=== PATIENT | male | born 1965 | race Caucasian/White ===

== ENCOUNTER 2022-01-13 17:08 | Outpatient (REF) | payer OTHER, SELFPAY ==
[2022-01-13 21:27] LABS: Microalb ug/mg Crea 52.4 ug/mg Cr
[2022-01-13 21:40] LABS: ALT 20 U/L (16-63); AST 14 U/L (15-37); Albumin 4.1 g/dL (3.4-5.0); Alkaline Phosphatase 68 U/L (46-116); Anion Gap 10.7 mmol/L (3-11); BUN 17 mg/dL (7-18); Bilirubin, Total 0.5 mg/dL (0.2-1.0); CO2 25.3 mmol/L (21.0-32.0); CREATININE 0.9 mg/dL (0.70-1.30); Calcium 9.1 mg/dL (8.5-10.1); Calculated LDL 73 mg/dL (<100); Chloride 104 mmol/L (98-107); Cholesterol 136 mg/dL (<200); Glucose 115 mg/dL (74-106); HDL Cholesterol 34 mg/dL (40-60); Potassium 3.9 mmol/L (3.5-5.1); Sodium 140 mmol/L (136-145); Total Protein 7.4 g/dL (6.4-8.2); Triglyceride 148 mg/dL (<150)
[2022-01-14 17:47] LABS: PSA, Screening 0.8 ng/mL (0.0-3.5)
[2022-01-15 10:01] LABS: HIV-1/2 Ag & Ab Screen Negative (Negative)
[2022-01-15 10:43] LABS: Hepatitis C Ab w Rflx HCV PCR Negative (Negative)
== END 2022-01-13 17:09 | disposition home or self-care (01) ==
LOC: LBN 17:08
PROVIDERS: PCP Family Medicine; Visit Provider Family Medicine
DX: I10 Essential (primary) hypertension (principal); E78.5 Hyperlipidemia, unspecified; E11.9 Type 2 diabetes mellitus without complications; E66.9 Obesity, unspecified; Z11.4 Encounter for screening for human immunodeficiency virus [HIV]; Z11.59 Encounter for screening for other viral diseases; Z12.5 Encounter for screening for malignant neoplasm of prostate
CPT/HCPCS: 80053; 80061; 84153; 86803; 87389; 82043; 82570; 83036

== ENCOUNTER 2022-01-19 11:19 | Outpatient (CLI) | payer OTHER, SELFPAY ==
--- NOTE | 2022-01-19 11:00 | DI.RAD_ITS ---
Exam(s) XR SHOULDER RT COMPLETE 2+V EXAM: XR SHOULDER RT COMPLETE 2+V CLINICAL HISTORY: eval R shoulder pain and weakness. TECHNIQUE: 2D digital imaging was performed. COMPARISON: No exams were available for comparison FINDINGS: BONES: No acute fracture is present. No bony destructive lesion is seen. JOINTS: No dislocation present. No significant AC joint degenerative changes. Glenoid is not well p rofiled but shows spurring. The glenohumeral joint spaces well maintained. SOFT TISSUE: Normal. IMPRESSION: Mild degenerative changes of the glenohumeral joint. DATA REPOSITORY: RADIATION DOSE DELIVERED:
--- NOTE | 2022-01-19 11:00 | DI.RAD_ITS ---
Exam(s) XR KNEE LT 3V AP,LAT,NABIL XR STANDING ALIGNMENT EXAM: XR STANDING ALIGNMENT CLINICAL HISTORY: eval alignment for TKA planning. TECHNIQUE: 2D digital imaging was performed. Standing AP views were performed from the pelvis throu gh the ankles. COMPARISON: CR XR KNEE LT 3V AP,LAT,NABIL from 01/19/2022 FINDINGS: BONES: No acute fracture is present. No bony destructive lesion is seen. Enthesophytes iliac wings. There is no significant overall leg length discrepancy at the level of the femoral heads. JOINTS: Knees: Right: Joint spaces are well maintained. Left: Severe narrowing of the medial femoral tibial joint space, periarticular spurring and sclerosis. Varus angulation. Spurring at the patell ofemoral joint and lateral femoral tibial joint as well as tibial spines and femoral intercondylar no tch. Hips: The hip joints are well maintained. There is bilateral acetabular spurring.. Ankles: Tibiotalar joints are well maintained. Bony densities are seen beneath the malleoli. There is spurring from the malleoli bilaterally. Calcification is seen near the interosseous membrane on t he right. SOFT TISSUE: Normal. No left knee joint effusion is seen IMPRESSION: Severe degenerative changes of the medial femoral tibial joint space of left knee. No significant le g length discrepancy. DATA REPOSITORY: RADIATION DOSE DELIVERED:
== END 2022-01-19 11:20 | disposition home or self-care (01) ==
LOC: DIORS 11:20
PROVIDERS: PCP Family Medicine; Referring Provider Family Medicine; Visit Provider Student in an Organized Health Care Education/Training Program
DX: M25.511 Pain in right shoulder (principal); M17.12 Unilateral primary osteoarthritis, left knee; M19.011 Primary osteoarthritis, right shoulder
CPT/HCPCS: 73562; 99203; 73030; 77073

== ENCOUNTER → 2022-01-27 13:41 | Outpatient (BNVA) | payer OTHER, SELFPAY | PROVIDERS: PCP Family Medicine; Referring Provider Family Medicine | DX: Z01.818 Encounter for other preprocedural examination (principal); M17.12 Unilateral primary osteoarthritis, left knee; R01.1 Cardiac murmur, unspecified ==

== ENCOUNTER → 2022-02-04 01:45 | Outpatient (CLI) | payer OTHER, SELFPAY | PROVIDERS: PCP Family Medicine; Visit Provider Physician Assistant | DX: R01.1 Cardiac murmur, unspecified (principal) | CPT/HCPCS: 93306 ==

== ENCOUNTER 2022-02-16 02:14 | Outpatient (CLI) | payer OTHER, SELFPAY | END 2022-02-16 02:15 | disposition home or self-care (01) | LOC: LBO 02:14 | PROVIDERS: PCP Family Medicine; Visit Provider Student in an Organized Health Care Education/Training Program ==

== ENCOUNTER 2022-02-16 02:46 | Outpatient (CLI) | payer OTHER, SELFPAY ==
[2022-02-16 10:18] LABS: HCT 41.9 % (40.0-50.0); HGB 13.8 g/dL (13.5-17.5); MCH 26.4 pg (27.0-33.0); MCHC 32.9 % (32.0-36.0); MCV 80.3 fL (80-95); MPV 8.6 fL (8.0-11.0); Platelet Count 297 10^3/uL (130-400); RBC 5.22 10^6/uL (4.36-5.78); RDW 14.6 % (11.8-14.1); RDW-SD 41.8 fL; WBC 7.71 10^3/uL (4.4-10.8)
[2022-02-16 10:47] LABS: Anion Gap 11.4 mmol/L (3-11); BUN 15 mg/dL (7-18); CO2 25.6 mmol/L (21.0-32.0); CREATININE 0.9 mg/dL (0.70-1.30); Calcium 9.1 mg/dL (8.5-10.1); Chloride 102 mmol/L (98-107); Glucose 200 mg/dL (74-106); Potassium 3.9 mmol/L (3.5-5.1); Sodium 139 mmol/L (136-145)
[2022-02-16 12:13] LABS: Source Nasal/Nares
[2022-02-16 16:39] LABS: COVID-19 PCR Negative (Negative)
== END 2022-02-16 02:47 | disposition home or self-care (01) ==
LOC: LBO 02:47
PROVIDERS: PCP Family Medicine; Visit Provider Student in an Organized Health Care Education/Training Program
DX: M25.562 Pain in left knee (principal); M17.12 Unilateral primary osteoarthritis, left knee; Z20.822 Contact with and (suspected) exposure to COVID-19; Z01.818 Encounter for other preprocedural examination; Z01.812 Encounter for preprocedural laboratory examination
CPT/HCPCS: 36415; 80048; 85027; 87635; U0005

== ENCOUNTER 2022-02-18 07:20 | Day surgery (SDC) | payer OTHER, SELFPAY ==
[2022-02-18] VITALS (9 sets, daily range): BP systolic 141–175; BP diastolic 66–94; PULSE 67–75; RESP 11–20; TEMP 36.2–36.7; O2SAT 92–99; BMI 39.7
[2022-02-18] MEDS: Acetaminophen 500 MG TAB 1000 MG PO (07:51)
[2022-02-18] MEDS: Celecoxib 200 MG CAP 400 MG PO (07:51)
[2022-02-18] MEDS: Gabapentin 300 MG CAP PO (07:52)
--- NOTE | 2022-02-18 08:19 | W.ANESPRE ---
General Info Date of Service Date Performed: 02/18/22 Height: 5 ft 10 in Weight: 125.6 kg Body Mass Index (BMI): 39.7 Surgical Procedure: Operation Date: 02/18/22 09:55 Proposed Procedure Side Surgeon p Knee Total Arthroplasty, Cementless CR Left George Sampson MD Meds Allergies and Home Medications Allergies Allergy/AdvReac Type Severity Reaction Status Date / Time No Known Allergies Allergy Verified 02/18/22 07:37 Home Medication Medication Instructions Recorded fluticasone propionate 50 2 spray INTRANASAL DAILY 12/31/21 mcg/actuation nasal spray,suspension (Flonase Allergy Relief) lisinopril 40 mg tablet 40 mg PO HS 02/17/22 metformin 1,000 mg tablet,extended 1,000 mg PO HS 02/17/22 release 24hr metformin 500 mg tablet,extended 2,500 mg PO QAM 02/17/22 release 24 hr nifedipine 60 mg tablet,extended 60 mg PO HS 02/17/22 release sertraline 100 mg tablet 100 mg PO HS 02/17/22 simvastatin 40 mg tablet 40 mg PO HS 02/17/22 Current Visit Medications: Current Medications Generic Name Dose Route Start Last Admin Trade Name Freq PRN Reason Stop Dose Admin Acetaminophen 1,000 mg 02/18/22 06:00 02/18/22 07:51 Acetaminophen 500 Mg Tab PO 02/18/22 16:00 1,000 mg PREOP GENE Administration Celecoxib 400 mg 02/18/22 06:00 02/18/22 07:51 Celecoxib 200 Mg Cap PO 02/18/22 16:00 400 mg PREOP GENE Administration Gabapentin 300 mg 02/18/22 06:00 02/18/22 07:52 Gabapentin 300 Mg Cap PO 02/18/22 16:00 300 mg PREOP GENE Administration Tranexamic Acid 1,000 mg/ 60 mls @ 360 mls/hr 02/18/22 06:00 Sodium Chloride IVPB 02/18/22 16:00 PREOP GENE Tranexamic Acid 1,000 mg/ 60 mls @ 360 mls/hr 02/18/22 06:00 Sodium Chloride IVPB 02/18/22 16:00 DIRECTED GENE Ringer's Solution 1,000 mls @ 80 mls/hr 02/18/22 06:00 IV 03/07/22 23:59 INFUSION GENE Cefazolin Sodium 3,000 mg/ 100 mls @ 200 mls/hr 02/18/22 06:00 Sodium Chloride IVPB 02/18/22 16:00 PREOP GENE IV Miscellaneous Supplies 1 each 02/18/22 06:00 Iv Access IV 03/07/22 23:59 DIRECTED GENE Sodium Chloride 0 ml 02/18/22 06:00 Normal Saline Flush 10 Ml Syr IV 03/07/22 23:59 PRN PRN Sodium Chloride 0 ml 02/18/22 06:00 Normal Saline 10 Ml Vial IJ 03/07/22 23:59 DIRECTED PRN Sterile Water 0 ml 02/18/22 06:00 Water,Injection,Sterile 10 Ml Vial IJ 03/07/22 23:59 DIRECTED PRN PFSH Active Problems Active Problems: Problem Status Onset Code Dysfunction of right rotator cuff M67.911 Right shoulder pain M25.511 Type 2 diabetes mellitus with diabetic nephropathy E11.21 Colon polyp K63.5 Depression F32.A Hypokalemia E87.6 Obesity E66.9 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 Hyperlipemia E78.5 Type II diabetes mellitus E11.9 Arthritis of knee, left M17.12 Essential hypertension I10 Sleep apnea G47.30 Medical History Medical History History of colon polyps Medical History Comments:: - 4 pins in neck c4-c6 - front tooth missing Surgical History Surgical History H/O discectomy (~02/08/18) c5-6 History of colonoscopy History of open reduction and internal fixation (ORIF) procedure (~11/08/84) r ankle fx History of orthopedic surgery (~1989) right ankle Tobacco Smoking/Tobacco Use Status: Former Tobacco Use Passive smoking exposure: Yes Second hand exposure: Yes Alcohol Alcohol Intake: current Alcohol intake frequency: holidays/special occasions only Alcohol type: beer Substance Use Substance use: Never Substance use type: marijuana Vital Signs and Lab Results Vital Signs Most Recent Vital Signs in EMR: Most Recent Vital Signs Temp Pulse Resp BP Pulse Ox 36.6 C 75 18 175/94 H 97 02/18/22 07:54 02/18/22 07:54 02/18/22 07:54 02/18/22 07:54 02/18/22 07:54 Point of Care Results Point of Care Results: Finger Stick Blood Glucose 127 02/18/22 07:34 Lab Results Blood Type / Crossmatch: No Data to Display Complete Blood Count: White Blood Count 7.71 10^3/uL (4.4-10.8) 02/16/22 10:00 02/16/22 Red Blood Count 5.22 10^6/uL (4.36-5.78) 02/16/22 10:00 02/16/22 Hemoglobin 13.8 g/dL (13.5-17.5) 02/16/22 10:00 02/16/22 Hematocrit 41.9 % (40.0-50.0) 02/16/22 10:00 02/16/22 Platelet Count 297 10^3/uL (130-400) 02/16/22 10:00 02/16/22 Complete Metabolic Panel: Sodium Level 139 mmol/L (136-145) 02/16/22 10:00 02/16/22 Potassium Level 3.9 mmol/L (3.5-5.1) 02/16/22 10:00 02/16/22 Chloride Level 102 mmol/L (98-107) 02/16/22 10:00 02/16/22 Carbon Dioxide Level 25.6 mmol/L (21.0-32.0) 02/16/22 10:00 02/16/22 Blood Urea Nitrogen 15 mg/dL (7-18) 02/16/22 10:00 02/16/22 Creatinine 0.9 mg/dL (0.70-1.30) 02/16/22 10:00 02/16/22 Estimated GFR/1.73 m2 >= 60.00 (mL/min/1.73m2) 02/16/22 10:00 02/16/22 Calcium Level 9.1 mg/dL (8.5-10.1) 02/16/22 10:00 02/16/22 Glucose Level 200 mg/dL (74-106) H 02/16/22 10:00 02/16/22 Liver Function Panel: No Data to Display Coagulation Panel: No Data to Display Cardiac Panel: No Data to Display Arterial Blood Gas: No Data to Display Venous Blood Gas: No Data to Display Pancreas Panel: No Data to Display Thyroid Panel: No Data to Display Infectious Disease: Coronavirus (COVID-19)(PCR) Negative (Negative) 02/16/22 10:13 02/16/22 Coronavirus 2019 Source Nasal/Nares 02/16/22 10:13 02/16/22 Blood Cultures: No Data to Display Toxicology Panel: No Data to Display Anesthesia Assessment and Plan Anesthesia History Personal History: No History of Anesthesia Complications Family History: No Family History of Anesthesia Complications Exercise Tolerance Exercise Tolerance: Metabolic Equivalents>4 Pertinent Negatives Pertinent Negatives: No Symptoms of GERD, No Major Cardiovascular Symptoms or Complaints, No Major Pulmonary Symptoms or Complaints (CPAP compliant at night and with naps) and No History of CVA/TIA Cardiac & Pulmonary Exam Cardiac Exam: Normal S1/S2 Heart Sounds and Other (Possible mitral valve systolic murmur) Pulmonary Exam: Clear Bilateral Breath Sounds Implantable Cardiac Device Does patient have a Pacemaker or an ICD?: No Airway Exam Known Difficult Airway: No Mallampati Class: 2 Mouth Opening: Normal (> 3cm) Thyromental Distance: Greater than 3 cm Neck Range of Motion: Limited ROM and History of Cervical Fusion Neck Circumference: Thick Teeth Condition: Loose or Chipped ASA Classification ASA Score: ASA 3 Emergency Case?: No NPO Status NPO Status: NPO Clears >2 hours, Solids >8 hours Anesthesia Plan Resuscitation Status: Full Code Anesthesia Technique: Spinal Anesthesia Airway Planned: Natural Airway Pain Management: Surgeon and patient request nerve block Monitors Used: Standard Monitors
[2022-02-18] MEDS: Lactated Ringers 1,000 ML 80 ML IV (08:32)
[2022-02-18] MEDS: ceFAZolin 3,000 MG in Normal Saline 100 ML 200 MG IVPB (09:40)
--- NOTE | 2022-02-18 09:55 | W.ANESNERVE ---
Nerve Block Single Injection Procedure Date and Time Date Performed: 02/18/22 Procedure Start: : Location Where Procedure Performed Procedure Location: Day Surgery Unit Reason Performed: Postoperative Analgesia Requesting Provider: George Sampson Timeout Performed Timeout Performed: Yes Monitoring Used ECG, Blood Pressure, SpO2 and See EMR for corresponding vital signs Sterility Sterility: Hand Hygiene, Surgical Cap, Surgical Mask, Sterile Gloves, Eye Protection and Chlorhexidine Sedation Given During Procedure Sedation Given (Indicate Dose Given): No Sedation given Patient Mental Status Patient Mental Status: Awake Nerve Block 1st Nerve Block: Laterality: Left Block Type: Adductor Canal Needle / Catheter Used: 100mm SonoPlex II Local Anesthetic Bolus (Indicate Dose Given): Lidocaine used for local infiltration of skin and Bupivacaine 0.25% Dose:: 20cc Additives (Indicate Dose Given): None Ultrasound: Sterile probe cover and gel used Ultrasound Image Saved?: Yes Nerve Stimulator: Not Used Paresthesia: None Procedure Tolerated: Patient tolerated well Procedure Outcome: Successful Performed By: Harmony Stevens Supervised By: Diego Ruth
[2022-02-18] MEDS: Bupivacaine 0.25% Pres-Free 30 ML VIAL (09:59)
[2022-02-18] MEDS: Ketorolac 30 MG/ML VIAL (10:00)
[2022-02-18] MEDS: Normal Saline 20 ML VIAL (10:00)
--- NOTE | 2022-02-18 12:01 | PDOC.DSDIS_ITS ---
Discharge Plan Disposition Patient Disposition: HOME Condition: Good Discharge Details Reason For Visit: L TKR Attending Provider: George Sampson Primary Care Provider: Meet Alcantara Home Meds and New Rx's Prescriptions: New celecoxib 200 mg capsule 200 mg PO BID Qty: 60 3RF aspirin 81 mg tablet,delayed release (DR/EC) 81 mg PO BID Qty: 60 0RF acetaminophen 500 mg tablet 1,000 mg PO TID Qty: 90 3RF gabapentin 300 mg capsule 300 mg PO QHS Qty: 14 0RF oxycodone 5 mg tablet 5 mg PO Q4H MDD 6 tabs PRN (Reason: pain) Qty: 20 0RF pantoprazole 40 mg tablet,delayed release (DR/EC) 40 mg PO DAILY Qty: 30 0RF Continued fluticasone propionate [Flonase Allergy Relief] 50 mcg/actuation spray,suspension 2 spray intranasal DAILY 0RF Rx Instructions: administer into each nostril sertraline 100 mg tablet 100 mg PO HS 0RF simvastatin 40 mg tablet 40 mg PO HS 0RF nifedipine 60 mg tablet extended release 60 mg PO HS 0RF lisinopril 40 mg tablet 40 mg PO HS 0RF metformin 500 mg tablet extended release 24 hr 2,500 mg PO QAM 0RF Label Comments: pt reports he took 3x 500mg tablets 02/17/22 metformin 1,000 mg tablet extended release 24hr 1,000 mg PO HS 0RF Label Comments: pt reports he doesnt take the 1000mg tablet Discharge Instructions Additional Instructions: Total Knee Discharge Instructions Activity: The most important activity is to walk. You should try to take short walks a few times a day. It is important that when resting you work on keeping the knee straight. Avoid putting a pillow behind the knee as this will encourage flexion. Work on range of motion exercises as provided by Physical Therapy. - Start outpatient physical therapy within 2 weeks. - You should wear the REYNA hose on both legs for 2 weeks. You may remove these at night. You may also use any compression sock in place of the REYNA hose. - Utilize [employer] to review exercises, see videos on exercises and obtain basic information pertaining to your surgery and your recovery. Dressing: Remove the Jarad wrap by 2 days after your surgery and put on the REYNA stocking given to you from the hospital. Keep the surgical dressing (underneath the JARAD wrap) in place for at least one week. After the first week it may be removed and replaced with light gauze and tape or nothing. The wound and dressing may get wet after 3 days but avoid soaking the dressing or otherwise it will need to be changed. Many people prefer covering the dressing with cling wrap (saran wrap) to minimize it from getting soaked. If it gets wet, just pat dry. If it starts to peel off then it will need to be changed. Medications: - You should take Tylenol and anti-inflammatory Celebrex as your primary pain control medications. If the Celebrex is too expensive or not covered, please call the office for another alternative (Advil/Ibuprofen or Naproxen/Aleve) - You have been prescribed a stronger pain medication Oxycodone for breakthrough pain, take as needed as prescribed. - You have also been prescribed a stomach acid reduction agent Pantoprozole to help reduce stomach acid and reflux. - You have been prescribed Gabapentin to take at night for restlessness and nerve pain. - You will be taking Aspirin 81mg twice a day for DVT prevention unless instructed otherwise. - If you have constipation you should take Colace or Miralax (both o [id number]). It takes most people 3-4 days to have a bowel movement. Follow-up: 2 weeks If you have any acute concerns or questions, please do not hesitate to contact the office at [phone]. You may contact Dr. Sampson with any questions after hours through the hospital at [phone] or on his cell phone at [phone]. Stand Alone Forms: Anesthesia Discharge Inst., Elyssa Warner ([facility]) Referrals: George Sampson MD [ [facility] STAFF PHYSICIAN] - Equipment/Supplies: Walker Activity:: Activity as Tolerated Remove Dressings/Wound Care:: Do Not Remove Shower/Bathe:: 72 hours Diet:: As Tolerated Discharge Orders Discharge Orders: Discharge Order (Routine); Ordered 02/18/22 Ordered By: George Sampson DS: Diagnosis Discharge Diagnosis (1) Arthritis of knee, left: Status: Acute
[2022-02-18] MEDS: HYDROmorphone 2 MG/ML VIAL IVP ×3 (12:05→12:25)
--- NOTE | 2022-02-18 12:54 | W.ANESPOSTOP ---
Postoperative Evaluation Date, Time and Location Date Performed: 02/18/22 Time Performed: 12:54 Patient Location: Day Surgery Unit Vital Signs Most Recent Imported Vital Signs: Most Recent Vital Signs Temp Pulse Resp BP Pulse Ox 36.5 C 68 12 153/70 H 99 02/18/22 12:25 02/18/22 12:25 02/18/22 12:25 02/18/22 12:25 02/18/22 12:25 Pain Score Most Recent Pain Score: Most Recent Pain Score Pain Level 6 02/18/22 12:25 Assessment Mental Status: Awake (Alert & Oriented to Patient Baseline) Airway and Respiratory Function: Patent airway with normal (patient baseline) respiratory exam Cardiovascular Function: Hemodynamically Stable Hydration Status: Adequately Hydrated Nausea & Vomiting: No Nausea or Vomiting Pain: Pain is tolerable per patient Peripheral Nerve Block: Regional nerve block not resolved at time of post operative discharge
[2022-02-18] MEDS: Insulin Aspart 100 UNITS/ML UNIT SC (13:12)
--- NOTE | 2022-02-18 14:45 | IN_ITS ---
Date of service: 02/18/22 Time of Service: 14:45 PT Notes Visit Reasons: L TKR Physical Therapy Day Surgery Initial Evaluation Date: 02/18/2022 Referring Doctor: DAVID Choudhury PT Orders: PT CONSULT: Eval/treat Precautions: WBAT on left LE with AD. Patient Profile/Admitting Diagnosis: Diego is a 56-year-old male with arthritis of the left knee and is status post left total knee arthroplasty on postoperative day 0. PMHX: Medical History?(Updated 01/19/22 @ 12:25 by George Sampson MD) History of colon polyps Surgical History?(Updated 01/27/22 @ 14:10 by Mela Epperson) H/O discectomy (~02/08/18) c5-6History of colonoscopy History of open reduction and internal fixation (ORIF) procedure (~11/08/84) r ankle fxHistory of orthopedic surgery (~1989) right ankle Social History/Home Situation: Lives with in a private home with 17 steps to enter with a rail on the left side going up in a wall that he can hold onto on the right side. Independent with all aspects of ADLs prior to surgery. Equipment Owned/DME: None Subjective: Agreeable to PT consult. Reported very little pain in the left knee with weight bearing Denies headache, chest pain, and dizziness throughout session. Objective: General Observation: Supine in bed. TARUN wraps to L LE. Cryocuff to left knee. Mental Status: Alert and oriented x4 Pain: 1/10 in the left knee. ROM: Right Lower Extremity: Hip flexion WFL. Hip abduction WFL. Knee flexion WFL. Ankle dorsiflexion WFL. Ankle plantarflexion WFL. Left Lower Extremity: Hip flexion WFL. Hip abduction WFL. Knee flexion 10 degrees to 90 degrees. Knee extension -10 degrees. Ankle dorsiflexion WFL. Ankle plantarflexion WFL. Strength: Right Lower Extremity: Hip flexors 5/5. Hip abductors 5/5. Knee flexors 5/5. Knee extensors 5/5. Ankle dorsiflexors 5/5. Ankle plantarflexors 5/5. Left Lower Extremity:Hip flexors 5/5. Hip abductors 5/5. Knee flexors 3-/5. Knee extensors 3-/5. Ankle dorsiflexors 5/5. Ankle plantarflexors 5/5. Sensation: Intact as to pain and light pressure in bilateral lower extremities Bed Mobility/Transfers: Supine to sit standby assist Sit to stand contact-guard assist Stand to sit standby assist Bed to chair standby assist Gait: 150 feet on level surface ambulation using front-wheeled walker with step through gait pattern. Good left quadriceps activation. Loss of balance. No shortness of breath. Balance: Static Sitting: Normal Dynamic Sitting: Normal Static Standing: Fair Dynamic Standing: Fair Special Tests: Mobility Limitations Standardized Measure [facility] 6 clicks Basic Mobility Inpatient Short Form: Raw Score: 24 CMS Score: 0% deficit Informed Consent/Education: Patient instructed in purpose of PT consult. Reviewed postoperative TKA exercises using [employer] at on his cell phone during the session. Education and training on initial set of exercises that can be done at home have been completed with patient. Assessment: Diego requires the use of a front wheeled walker for mobility ADL performance to reduce fall risk and maximize independence. Patient presents with clinical signs and symptoms consistent with current/admitting diagnoses that have resulted to mobility limitations, gait instability, generalized weakness, and impairment of motor control as demonstrated by the following impairment level findings: 1. Decreased strength to left knee major muscle groups 2. Impaired standing balance 3. Limitation of joint range of motion in left knee Impairments are contributing to the following functional limitations: 1. Inability to safely ambulate without assistive device 2. Increase completion time for mobility ADL performance 3. Increased fall risk Patient is assessed as a 72691 moderatecomplexity based on the following: History: 56-year-old male with impairment level findings, functional limitations, and past medical history as indicated above Examination: Demonstrable impairment in strength, balance, and mobility level with underlying impairments and functional limitations as documented above Presentation: Evolving Decision Makin moderate complexity Goals: N/A. PT evaluation and 1-2 treatment sessions only for functional mobility training using recommended AD and for HEP instruction. Plan of Care/Treatment Plan: N/A. PT evaluation and 1-2 treatment session only for functional mobility training using recommended AD and for HEP instruction. DISCHARGE RECOMMENDATIONS: [] Home with no services [] [] Home with services [specify] [X] Home with outpatient PT. Home when medically cleared by orthopedic surgeon. Will benefit from outpatient PT services to be ambulation and to ADL performance without an assistive ambulatory/adaptive device. [] SNF for continued rehabilitation [] [] Senior Living Care [] [] SNF versus LTC based on ability to participate and progress [] TREATMENT CODE/TIME: 9716 2 x 20 minutes, 9753 0 x 16 minutes beginning at 14:45 PM. Thank you for the opportunity to participate in the care of this patient. Sheba Noe PT, DPT, CLT [facility] [place], [place]
--- NOTE | 2022-02-18 22:37 | ROE_ITS ---
Date of service: 02/18/22 Time of Service: 11:00 Operative Note Operative Note DATE OF PROCEDURE: 02/18/22 PRE-OP DIAGNOSIS: Left Knee Osteoarthritis POST-OP DIAGNOSIS: same PROCEDURE: Left Total Knee Replacement SURGEON: George Sampson PRINCIPAL ADMINISTRATIVE CLERK: Sarai Starks Refer to Anesthesia Record ESTIMATED BLOOD LOSS: 100 PATHOLOGY: none sent TOURNIQUET TIME: 0 COMPLICATIONS: None Patient was transported to: PACU Patient's condition: stable Implants: 1. Depuy Attune Cementless Cruciate Retaining Femoral Component, Size 8 2. Depuy Attune Cementless Rotating Platform Tibial Component, Size 7 3. Depuy Attune 8x5 CR/RP Poly 4. Depuy Attune Patellar Component, Size 38 Indications: I have seen Diego in clinic for symptoms of knee arthritis, confirmed with radiographic findings. He has exhausted nonoperative methods and was having significant limitations in daily function and desired better function and less pain. I discussed the technical details of a knee replacement. I explained the risks of the procedure to include, but not limited to, bleeding, infection, pain, stiffness, fracture, damage to nerves and vessels, damage to muscles and tendons, loosening, need for repeat procedure, blood clot and cardiopulmonary demise. Despite these risks, Diego elected to proceed. Findings: There was significant signs of arthritis throughout the knee. His preoperative stiffness was really limited 15-95. Procedure Description: Diego was greeted in the preoperative holding area where the correct side was identified and marked. The consent was reviewed with the patient and signed. The history and physical was updated. All questions were answered. Preoperative medications were administered: Acetaminophen 1000mg, Celebrex 400mg, and Gabapentin 300mg. An adductor canal block was then administered by the anesthesia team in the PACU. Diego was taken back to the operating room. A spinal anesthestic was then administered. The patient was placed into the supine position on the operating room table. A nonsterile tourniquet was placed high onto the leg but only used for cementing. Posts were placed for positioning during the procedure. All bony prominences were well padded. Prophylactic antibiotics in the form of Cefazolin were administered. 1g of Tranxemic Acid was given intravenously within 30 minutes of incision. The left leg was then prepped with Chloraprep and draped in a standard fashion with impervious stockinette. A second prep with Chloraprep was performed prior to application of Iodine impregnated skin protection. A timeout to confirm correct identity, side and site, procedure, allergies, anesthesia, and medical concerns was performed. With the knee in some flexion, a midline incision was made overlying the knee. Full thickness skin flaps were raised once the extensor mechanism was encountered. These were raised medially and laterally. Any bleeding was controlled with electrocautery. Once the extensor mechanism was fully exposed, a medial parapatellar arthrotomy was performed in a flexed position. All bleeding from the arthrotomy and the geniculate arteries was coagulated. A medial subperiosteal peel was performed with electrocautery to the midcoronal plane. Due to the significant varus deformity the entire medial tibial plateau was exposed. The fat pad was removed while keeping the patellar tendon protected. The anterior distal femur synovium was removed for later visualization. The ACL and PCL were resected and the anterior horn of the lateral meniscus was transected. The knee was then flexed with the patella everted. Large osteophytes from the tibia were removed. Large osteophytes from the femur were removed. Using a step drill, and based on preoperative templating, the femoral canal was entered. This was done with a step drill without any difficulty. The intramedullary distal femoral cut guide was inserted, set to a 5 degree valgus cut and 9mm cut thickness. The distal femoral cut guide was then held in position and pinned. With the soft tissues protected, the distal cut was performed. This was passed over a few times to ensure a planar cut. I then turned attention to the tibia. The extramedullary guide was placed onto the leg. The distal aspect was slid medial to adjust for position of center of ankle and stay in line with shaft of the tibia. Approximately 3-5 degrees of posterior slope was kept in the proximal cutting guide. The center of the guide was aligned with the PCL. The stylus was used to assess cut thickness. The medial side, most involved side, was set for a 4mm cut. This was then held in position and pinned into place with 2 additional pins and a cross pin for stability. The medial and lateral collateral ligaments were protected and the cut was performed. With this completed, it was assessed and noted to be of appropriate dimensions. The guide was removed. A spacer block was inserted and the knee was brought into extension. The 5mm spacer block provided full extension, without hyperextension and with stability of both the medial and lateral collateral ligaments was assessed. The pins from the femur and the tibia were then removed. The distal femur was then sized. The anterior stylus was placed onto the lateral ridge of the anterior femur. This indicated a size 8 femur. The external rotation of the guide was adjusted to 3 degrees to match the epicondylar axis, perpendicular to Anderson?s line. The 4-in-1 cutting guide was the placed. The posterior medial femur cut was evaluated and appeared of good thickness. The spacer block was inserted underneath the cutting guide and stability was confirmed in 90 degrees of flexion. An mikala wing was used to confirm appropriate position of the anterior cut to avoid notching. This cutting guide was ensured to be flush on the cut surface and then pinned into place with headed pins. While protecting the soft tissues, quad tendon, and collateral ligaments, the anterior and posterior cuts were performed with a saw. The central two pins were removed and the posterior and anterior chamfers were cut next. The notch-cutting guide was placed. This was pinned to lateralize the femoral component as much as possible while keeping it flush on the cut surface. This was then pinned into position. A reciprocating saw was used to make the notch cut. A rasp smoothed the cut surfaces. The medial and lateral menisci were removed. A trial femoral component was then inserted, impacted down to the cut surfaces, and the lug holes were drilled. A provisional trial tibial component was placed and the knee was brought through range of motion. There was noted to be excellent extension and flexion. There was no significant instability. The patella was tracking without thumbs. A size 5mm polyethylene component provided the best range of motion and stability with less than 2mm gapping with medial and lateral stress and full extension without significant hyperextension. The tibial cut surface was fully exposed. The tibia was then sized as a 7. The tibia had been previously marked during trialing to correspond to the center of the tibial component to help with rotation. The trial was aligned to this sarai, approximately rotated to the medial 1/3rd of the tibial tubercle. The trial was pinned into place. The tibia was prepared with a reamer and a keel punch and lug holes. The knee was then brought into extension and the patella was measured as 28mm. Using the patellar clamp and cut guide, this was resected to a flat surface with at least 13mm of thickness remaining. The size 38 patella fit the best. This was oriented and then clamped into position. The lugs were drilled. The trial components were removed. The final components were opened on the back table. The periosteal and capsular tissues, especially posteriorly, around the knee were then systematically injected with a periarticular cocktail consisting of 50cc 0.25% Marcaine, 30mg Ketorolac, 20cc of Exparal and 50cc of injectable saline. The knee was thoroughly irrigated with a pulse lavage and dried. Irrisept was also used to irrigate the tissues. On the back table, with the implants opened, the cement was mixed. One batch of high viscosity cement was prepared with vacuum assistance. After the cement was ready a small amount was placed on the cut surface of the patella and the patellar button was clamped into position and held. While the cement was hardening, the cementless knee components were placed. Starting with the tibial component, the tibia was subluxed anteriorly and the lug holes of the component were lined up. The tibia was then impacted with an impactor and mallet until the tibial component was in contact with the tibia. The final polyethylene com ponent was inserted. Then, the femoral component was inserted. The lug holes were aligned and the component was impacted into position. The knee was irrigated with Surgiphor, Betadine solution. This was allowed to sit in the knee for 3 minutes and then it was thoroughly irrigated out with saline. After the cement had finally cured, approximately 15min, the clamp was removed from the patella and the knee was taken through range of motion. The patella was tracking with a no-thumbs technique. The capsule was then reapproximated with a No. 1 Vicryl at multiple locations. The capsule was finally closed with a No. 2 Stratafix, barbed suture. The second dosing of 1g TXA was started. Deep tissues were then reapproximated with 0 Vicryl and 2-0 Vicryl. The skin was closed with a running 3-0 Monocryl in a subcuticular fashion. This was reinforced with skin glue. A Mepilex silver dressing was applied along with a [id number]-bgyqt TARUN wrap. A CryoCuff was applied. Diego was transferred to the hospital bed without difficulty an suffering no apparent complication. Diego has a good prognosis. Physical therapy will start today and without restrictions, weight-bearing as tolerated. Aspirin 81mg BID will be used for DVT prophylaxis.
== END 2022-02-18 15:45 | disposition home or self-care (01) ==
PROVIDERS: PCP Family Medicine; Visit Provider Student in an Organized Health Care Education/Training Program
PROC: (CPT 27447; principal; 2022-02-18 09:45)
DX: M17.12 Unilateral primary osteoarthritis, left knee (principal); E11.21 Type 2 diabetes mellitus with diabetic nephropathy; I10 Essential (primary) hypertension; E78.5 Hyperlipidemia, unspecified
CPT/HCPCS: 27447; 76942; 97162; 97530; J0131; J0690; J1100; J1885; J2001; J2250; J2405; J2704; J3010

== ENCOUNTER 2022-03-05 11:00 | Outpatient (CLI) | payer OTHER, SELFPAY ==
--- NOTE | 2022-03-05 09:15 | DI.RAD_ITS ---
Exam(s) XR KNEE LT 1V XR STANDING ALIGNMENT EXAM: XR STANDING ALIGNMENT CLINICAL HISTORY: 1ST POST OP L TKA TECHNIQUE: COMPARISON: CR XR STANDING ALIGNMENT from 01/19/2022 CR XR KNEE LT 1V from 03/05/2022 FINDINGS: AP standing alignment views were obtained for leg length determination along with a lateral view of t he left knee. There is a total knee joint replacement position on the left. Components appear well seated. There are slight degenerative changes of the hips, and right knee. Moderate degenerative ch anges of the joints of the ankle also noted. IMPRESSION: RADIATION DOSE DELIVERED: Total DLP
== END 2022-03-05 11:01 | disposition home or self-care (01) ==
LOC: DIORS 11:00
PROVIDERS: PCP Family Medicine; Referring Provider Family Medicine; Visit Provider Physician Assistant
DX: Z96.652 Presence of left artificial knee joint (principal)
CPT/HCPCS: 73560; 77073

== ENCOUNTER → 2022-04-03 10:43 | Outpatient (BNVA) | payer OTHER, SELFPAY | PROVIDERS: PCP Family Medicine; Referring Provider Family Medicine; Visit Provider Student in an Organized Health Care Education/Training Program | DX: Z47.1 Aftercare following joint replacement surgery (principal); Z96.652 Presence of left artificial knee joint ==

== ENCOUNTER → 2022-04-27 10:26 | Outpatient (BNVA) | payer OTHER, SELFPAY | PROVIDERS: PCP Nurse Practitioner Family; Referring Provider Nurse Practitioner Family; Visit Provider Student in an Organized Health Care Education/Training Program | DX: Z47.1 Aftercare following joint replacement surgery (principal); Z96.652 Presence of left artificial knee joint ==

== ENCOUNTER → 2022-04-28 00:11 | Outpatient (CLI) | payer OTHER, SELFPAY ==
--- NOTE | 2022-04-28 07:15 | DI.US_ITS ---
Exam(s) US LOWER EXTREMITY VENOUS LT EXAM: US LOWER EXTREMITY VENOUS LT CLINICAL HISTORY: PAIN, SWELLING, ?DVT L LOWER EXTREMITY, hx total knee replacement, Z96.652. TECHNIQUE: Lower extremity venous ultrasound performed using grayscale, color-flow, and spectral Do ppler analysis. COMPARISON: No exams were available for comparison FINDINGS: The common femoral, femoral and popliteal veins demonstrate normal compressibility, augmentation, and color Doppler. The posterior tibial veins are patent. No saphenous vein thrombosis or other superfi cial venous thrombosis is seen. No hematoma or Sanchez's cyst is seen. IMPRESSION: Negative lower extremity ultrasound. No evidence of DVT. DATA REPOSITORY:
== END ==
PROVIDERS: PCP Nurse Practitioner Family; Visit Provider Student in an Organized Health Care Education/Training Program
DX: M79.662 Pain in left lower leg (principal); M79.89 Other specified soft tissue disorders; Z96.652 Presence of left artificial knee joint
CPT/HCPCS: 93971

== ENCOUNTER 2022-04-29 02:13 | Outpatient (CLI) | payer OTHER, SELFPAY ==
[2022-04-29 13:25] LABS: Anion Gap 9.8 mmol/L (3-11); BUN 14 mg/dL (7-18); CO2 25.2 mmol/L (21.0-32.0); CREATININE 0.9 mg/dL (0.70-1.30); Calcium 8.7 mg/dL (8.5-10.1); Chloride 101 mmol/L (98-107); Glucose 161 mg/dL (74-106); Potassium 3.6 mmol/L (3.5-5.1); Sodium 136 mmol/L (136-145)
== END 2022-04-29 02:14 | disposition home or self-care (01) ==
LOC: LBO 02:13
PROVIDERS: PCP Nurse Practitioner Family; Visit Provider Student in an Organized Health Care Education/Training Program
DX: R22.42 Localized swelling, mass and lump, left lower limb; Z96.652 Presence of left artificial knee joint
CPT/HCPCS: 36415; 80048

== ENCOUNTER → 2022-06-08 10:34 | Outpatient (BNVA) | payer OTHER, SELFPAY | PROVIDERS: PCP Nurse Practitioner Family; Referring Provider Nurse Practitioner Family; Visit Provider Student in an Organized Health Care Education/Training Program | DX: R60.0 Localized edema (principal); L55.0 Sunburn of first degree; Z96.652 Presence of left artificial knee joint | CPT/HCPCS: 99213 ==

== ENCOUNTER → 2022-07-08 01:47 | Outpatient (CLI) | payer OTHER, SELFPAY ==
--- NOTE | 2022-07-08 10:34 | DI.US_ITS ---
APPROVED REPORT EXAM: Comprehensive 2D, Doppler, and color-flow Echocardiogram Patient Location: Out-Patient Guest Service Host: Sonia Hadley RDCS (AE) Indications: Pericardial effusion, sleep apnea, murmur Other Information Study Quality: Adequate Conclusion Normal left ventricular wall thickness and chamber size. Estimated ejection fraction is 60%. Wall m otion is normal Normal right ventricular size and systolic function Both atria are normal in size There is no structural or hemodynamically significant valvular disease Estimated right ventricular systolic pressure is 43 mmHg Moderate circumferential pericardial effusion, no evidence of tamponade Wall motion Left Ventricle The left ventricle is normal size. The left ventricular systolic function is normal. The left ventric ular ejection fraction is within the normal range. There is normal left ventricular wall thickness. T here is normal LV segmental wall motion. There is no ventricular septal defect visualized. LVEF is 60 %. Right Ventricle The right ventricle is normal size. The right ventricular systolic function is normal. The RVSP is 43 .4 mmHg. Atria The left atrium size is normal. The right atrium size is normal. The interatrial septum is intact wit h no evidence for an atrial septal defect. Aortic Valve The aortic valve is normal in structure. Aortic valve is trileaflet. There is no aortic valvular sten osis. No aortic regurgitation is present. Mitral Valve The mitral valve is normal in structure. No evidence of mitral valve stenosis. Trace mitral regurgita tion. Tricuspid Valve The tricuspid valve is normal in structure. There is no tricuspid valve stenosis. Trace tricuspid reg urgitation. Pulmonic Valve The pulmonary valve is normal in structure. There is no pulmonic valvular stenosis. Trace pulmonic re gurgitation. Great Vessels The aortic root is normal in size. The ascending aorta is normal in size. Aortic arch is not well vis ualized. IVC is normal in size and collapses >50% with inspiration. Pericardium Moderate circumferential pericardial effusion. 2D Dimensions IVSD d PLAX 1.06 cm M: 0.6-1.2 LV Vol A2C d MOD 115.7 mL LVPW d PLAX 1.07 cm M: 0.6 - 1.2 LV Vol A4C d MOD 117.0 mL LVID d PLAX 5.55 cm M: 4.2 - 5.8 LA vol/ BSA A2C s A-L 30.2 mL/m2 LVDs 3.45 cm M: 2.5 - 4.0 LA vol/ BSA A4C s A-L 32.1 mL/m2 Ao Root d 3.07 cm M: 3.1 - 3.7 LA Vol/ BSA Biplane s A-L 31.7 mL/m2 RA Area A4C 14.17 cm2 LA Area A4C s MOD 25.42 cm2 RA Vol/ BSA A4C s A-L 12.8 mL/m2 LA Area A2C s MOD 24.26 cm2 Ao Asc Diam d 3.45 cm M: 2.6 - 3.4 LV EF A4C MOD 60.1 % LV EF Teichholz 66.6 % LV EF A2C MOD 60.9 % LVEF (Campos's) 61.60 % M: 52 - 72 LV EF Biplane MOD 61.6 % LV Volume 84.60 mL M: 62 - 150 SV 73.70 mL LV Volume Index 35.10 mL/m2 M: 34 - 74 SV Index 30.53 mL/m2 LV Vol Biplane MOD 119.7 mL FS 37.20 % M-Mode TAPSE 2.88 cm (M/F) >1.7 LV Diastology MV E' medial 0.112 (>0.07 m/s) E/A Ratio 1.4 LV E/e MED 10.55 (<14) MV E Vmax 1.19 (0.4-1.3 m/s) MV E' lateral 0.104 (>0.1 m/s) MV A Vmax 0.85 (0.4-1.3 m/s) LV E/e LAT 11.40 (<14) MV E/A Ratio 1.36 MV E/E' medial 10.57 MV E/E' lateral 11.44 Aortic Valve LVOT Area 3.33 cm2 AoV Area Vmax 2.84 cm2 LVOT Vmax 1.47 m/s AoV Area/ BSA (Vmax) 1.18 cm2/m2 LVOT Mean Nhan. 0.98 m/s MARIAM Mean Nhan. 2.63 cm2 LVOT Peak Grad 8.7 mmHg MARIAM Mean Nhan. Index 1.09 cm2/m2 LVOT Mean Grad 4.5 mmHg LVOT VTI 0.299 m LVOT Diam s 2.05 cm AoV Vmax 1.73 m/s Velocity Ratio 0.84 AoV Mean Nhan. 1.25 m/s AoV Peak Grad 12.0 mmHg LVOT SV 99.72 mL AoV Mean Grad 6.8 mmHg AoV VTI 0.334 m AoV Area VTI 2.98 cm2 AoV Area/ BSA (VTI) 1.23 cm/m2 Mitral Valve MV DT 220 (160-240 msec) MV PHT 64 msec MV Area PHT 3.45 cm2 MV VTI 0.377 m MV Area VTI 2.64 (4.0-6.0 cm2) Pulmonary Valve PV Vmax 1.16 (0.5-1.5 m/s) RVOT Peak Gr. 3.54 mmHg PV Peak Grad 5.4 mmHg RVOT Mean Gr. 2.00 mmHg PV Mean Grad 3.3 mmHg RVOT VTI 0.220 m PV VTI 0.233 m RVOT Vmax 0.94 m/s Tricuspid Valve TR Peak Grad 40.3 mmHg TR Vmax 3.18 m/s RA Pressure 3.00 mmHg RVSP (TR) 43.4 mmHg
== END ==
PROVIDERS: PCP Nurse Practitioner Family; Visit Provider Family Medicine
DX: G47.30 Sleep apnea, unspecified (principal); I31.3 Pericardial effusion (noninflammatory); R01.1 Cardiac murmur, unspecified
CPT/HCPCS: 93306

== ENCOUNTER 2022-08-03 09:46 | Outpatient (CLI) | payer OTHER, SELFPAY ==
--- NOTE | 2022-08-03 09:44 | DI.RAD_ITS ---
Exam(s) XR KNEE LT 3V AP,LAT,NABIL EXAM: XR KNEE LT 3V AP,LAT,NABIL CLINICAL HISTORY: pain, swelling in L tka. TECHNIQUE: 2D digital imaging was performed. Three views. COMPARISON: CR XR KNEE LT 1V from 03/05/2022 FINDINGS: BONES: There has been no change in the total knee prosthesis or appearance of the surrounding bone. No acute fracture is present. No bony destructive lesion is seen. JOINTS: The knee is normally aligned. No joint effusion is seen. SOFT TISSUE: Mild anterior soft tissue swelling. IMPRESSION: Stable appearance of knee prosthesis. DATA REPOSITORY: RADIATION DOSE DELIVERED:
[2022-08-03 12:15] LABS: Clarity Clear
[2022-08-03 12:16] LABS: Nucleated Cells 410 uL (0)
[2022-08-03 12:33] LABS: Mononuclear Cells 94 %; Polynuclear Cells 6 %
== END 2022-08-03 09:47 | disposition home or self-care (01) ==
LOC: DIORS 09:47
PROVIDERS: PCP Nurse Practitioner Family; Referring Provider Nurse Practitioner Family; Visit Provider Student in an Organized Health Care Education/Training Program
DX: T84.84XA Pain due to internal orthopedic prosthetic devices, implants and grafts, initial encounter (principal); Z96.652 Presence of left artificial knee joint
CPT/HCPCS: 20610; 73562; 99213; 87070; 87205; 89051

== ENCOUNTER 2022-08-25 11:03 | Day surgery (SDC) | payer OTHER, SELFPAY ==
[2022-08-25] VITALS (8 sets, daily range): BP systolic 106–154; BP diastolic 46–80; PULSE 65–72; RESP 12–18; TEMP 36.1–36.7; O2SAT 95–97; BMI 39.7
[2022-08-25] MEDS: Lactated Ringers 1,000 ML 80 ML IV (11:45)
[2022-08-25] MEDS: Celecoxib 200 MG CAP 400 MG PO (11:46)
[2022-08-25] MEDS: Gabapentin 300 MG CAP PO (11:46)
[2022-08-25] MEDS: Acetaminophen 500 MG TAB 1000 MG PO (11:46)
--- NOTE | 2022-08-25 11:46 | W.ANESPRE ---
General Info Date of Service Date Performed: 08/25/22 Height: 5 ft 10 in Weight: 125.645 kg Body Mass Index (BMI): 39.7 Surgical Procedure: Operation Date: 08/25/22 13:55 Proposed Procedure Side Surgeon p Knee Arthroscopy Synovectomy w/Manipulation Left George Sampson MD Meds Allergies and Home Medications Allergies Allergy/AdvReac Type Severity Reaction Status Date / Time No Known Allergies Allergy Verified 08/24/22 11:52 Home Medication Medication Instructions Recorded fluticasone propionate 50 2 spray intranasal DAILY 12/31/21 mcg/actuation nasal spray,suspension (Flonase Allergy Relief) sertraline 100 mg tablet 100 mg PO HS 02/17/22 simvastatin 40 mg tablet 40 mg PO HS 02/17/22 metformin 1,000 mg tablet 1,000 mg PO BID #180 tabs 03/02/22 lisinopril 40 mg tablet See Rx Instructions .Route 03/13/22 .COMPLEX #90 tabs acetaminophen 500 mg tablet 1,000 mg PO Q8H PRN pain #90 tabs 08/25/22 hydrochlorothiazide 25 mg tablet 50 mg PO DAILY 08/25/22 ibuprofen 600 mg tablet 600 mg PO TID PRN pain #60 tabs 08/25/22 Current Visit Medications: Current Medications Generic Name Dose Route Start Last Admin Trade Name Freq PRN Reason Stop Dose Admin Acetaminophen 1,000 mg 08/25/22 06:00 Acetaminophen 500 Mg Tab PO 08/25/22 18:00 PREOP GENE Celecoxib 400 mg 08/25/22 06:00 Celecoxib 200 Mg Cap PO 08/25/22 18:00 PREOP GENE Gabapentin 300 mg 08/25/22 06:00 Gabapentin 300 Mg Cap PO 08/25/22 18:00 PREOP [facility] Ringer's Solution 1,000 mls @ 80 mls/hr 08/25/22 06:00 IV 09/23/22 23:59 INFUSION GENE Cefazolin Sodium 3,000 mg/ 100 mls @ 200 mls/hr 08/25/22 06:00 Sodium Chloride IVPB 08/25/22 16:00 PREOP [facility] IV Miscellaneous Supplies 1 each 08/25/22 06:00 Iv Access IV 09/23/22 23:59 DIRECTED GENE Sodium Chloride 0 ml 08/25/22 06:00 Normal Saline Flush 10 Ml Syr IV 09/23/22 23:59 PRN PRN Sodium Chloride 0 ml 08/25/22 06:00 Normal Saline 10 Ml Vial IJ 09/23/22 23:59 DIRECTED PRN Sterile Water 0 ml 08/25/22 06:00 Water,Injection,Sterile 10 Ml Vial IJ 09/23/22 23:59 DIRECTED PRN PFSH Active Problems Active Problems: Problem Status Onset Code Arthrofibrosis of total knee arthroplasty T84.82XA Painful total knee replacement, left T84.84XA, Z96.652 Lower extremity edema R60.0 Pericardial effusion I31.3 Heart murmur R01.1 History of total left knee replacement (TKR) 02/18/22 Z96.652 Dysfunction of right rotator cuff M67.911 Right shoulder pain M25.511 Type 2 diabetes mellitus with diabetic nephropathy E11.21 Colon polyp K63.5 Depression F32.A Hypokalemia E87.6 Obesity E66.9 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 Hyperlipemia E78.5 Essential hypertension I10 Sleep apnea G47.30 Medical History Medical History History of colon polyps Medical History Comments:: - 4 pins in neck c4-c6 - front tooth missing Surgical History Surgical History H/O discectomy (~02/08/18) c5-6 History of colonoscopy History of open reduction and internal fixation (ORIF) procedure (~11/08/84) r ankle fx History of orthopedic surgery (~1989) right ankle Tobacco Smoking/Tobacco Use Status: Former Tobacco Use Passive smoking exposure: Yes Second hand exposure: Yes Alcohol Alcohol Intake: current Alcohol intake frequency: holidays/special occasions only Alcohol type: beer Substance Use Substance use: Never Vital Signs and Lab Results Vital Signs Most Recent Vital Signs in EMR: Most Recent Vital Signs Temp Pulse Resp BP Pulse Ox 36.7 C 72 18 154/73 H 96 08/25/22 11:15 08/25/22 11:15 08/25/22 11:15 08/25/22 11:15 08/25/22 11:15 Point of Care Results Point of Care Results: Finger Stick Blood Glucose 132 08/25/22 11:43 Lab Results Blood Type / Crossmatch: No Data to Display Complete Blood Count: No Data to Display Complete Metabolic Panel: No Data to Display Liver Function Panel: No Data to Display Coagulation Panel: No Data to Display Cardiac Panel: No Data to Display Arterial Blood Gas: No Data to Display Venous Blood Gas: No Data to Display Pancreas Panel: No Data to Display Thyroid Panel: No Data to Display Infectious Disease: No Data to Display Blood Cultures: No Data to Display Toxicology Panel: No Data to Display Imaging and Studies Imaging and Studies Study information below may be from another EMR and interpreted by another provider. Please see original notes in EMR for more complete details. Echocardiogram Summary: Date of Exam: 07/08/22Sex: M Admission Date: 07/08/22 : 1965 Age: 56 APPROVED REPORT EXAM: Comprehensive 2D, Doppler, and color-flow Echocardiogram Patient Location: Out-Patient Inspector Firearms: Sonia Hadley RDCS (AE) Indications: Pericardial effusion, sleep apnea, murmur Other Information Study Quality: Adequate Conclusion Normal left ventricular wall thickness and chamber size. Estimated ejection fraction is 60%. Wall motion is normal Normal right ventricular size and systolic function Both atria are normal in size There is no structural or hemodynamically significant valvular disease Estimated right ventricular systolic pressure is 43 mmHg Moderate circumferential pericardial effusion, no evidence of tamponade Anesthesia Assessment and Plan Anesthesia History Personal History: No History of Anesthesia Complications Family History: No Family History of Anesthesia Complications Exercise Tolerance Exercise Tolerance: Metabolic Equivalents>4 Cardiac & Pulmonary Exam Cardiac Exam: Normal S1/S2 Heart Sounds Pulmonary Exam: Clear Bilateral Breath Sounds Implantable Cardiac Device Does patient have a Pacemaker or an ICD?: No Airway Exam Known Difficult Airway: No Mallampati Class: 2 Mouth Opening: Normal (> 3cm) Thyromental Distance: Greater than 3 cm Neck Range of Motion: Limited ROM and History of Cervical Fusion Neck Circumference: Thick Teeth Condition: Loose or Chipped ASA Classification ASA Score: ASA 3 Emergency Case?: No NPO Status NPO Status: NPO Clears >2 hours, Solids >8 hours Anesthesia Plan Resuscitation Status: Full Code Anesthesia Technique: General Anesthesia Airway Planned: LMA Monitors Used: Standard Monitors
--- NOTE | 2022-08-25 12:21 | W.PM.DSUDISC ---
Discharge Plan Disposition Patient Disposition: HOME Condition: Good Discharge Details Reason For Visit: Arthrofibrosis of left TKA Attending Provider: George Sampson Primary Care Provider: Mikhail Elizabeth Home Meds and New Rx's Prescriptions: New acetaminophen 500 mg tablet 1,000 mg PO Q8H PRN Qty: 90 0RF Rx Instructions: Take two tablets up to every 8 hours as needed for pain ibuprofen 600 mg tablet 600 mg PO TID PRN (Reason: pain) Qty: 60 0RF oxycodone 5 mg tablet 5 mg PO Q6H PRN (Reason: severe post-operative pain) Qty: 8 0RF Rx Instructions: Take one tablet up to every 6 hours as needed for severe pain Continued fluticasone propionate [Flonase Allergy Relief] 50 mcg/actuation spray,suspension 2 spray intranasal DAILY Rx Instructions: administer into each nostril metformin 1,000 mg tablet 1,000 mg PO BID Qty: 180 3RF lisinopril 40 mg tablet See Rx Instructions .ROUTE .COMPLEX Qty: 90 3RF Dose Instruction: TAKE 1 TABLET BY MOUTH DAILY Rx Instructions: TAKE 1 TABLET BY MOUTH DAILY sertraline 100 mg tablet 100 mg PO HS simvastatin 40 mg tablet 40 mg PO HS hydrochlorothiazide 25 mg tablet 50 mg PO DAILY Discontinued acetaminophen 500 mg tablet 1,000 mg PO TID Qty: 90 0RF Discharge Instructions Additional Instructions: Knee Manipulation Discharge Instructions Activity: You should begin moving as soon as possible. You may work on flexion but also equally maintain extension. You may bear weight as tolerated, using crutches only for support/comfort. You should apply ice to help with swelling and elevate when possible (especially in the first few days). Dressings: The knee dressing may come down after 48 hours. You may shower and get the wound wet at that time. You should keep the wounds covered with a bandaid until follow-up. Medications: - You have been prescribed a narcotic, Oxycodone, to take for severe postoperative pain. Take this medication only as needed. - Recommend to take up to 1000mg of Acetaminophen (Tylenol) and 600mg of Ibuprofen (Advil) every 8 hours as needed. These larger strength tablets were called in but you also may use [id number]. Follow-up: 7-10 days Stand Alone Forms: Anesthesia Discharge Elyssa Fountain (DSU) Referrals: George Sampson MD [ [facility] STAFF PHYSICIAN] - Equipment/Supplies: Partial Weight Bearing Crutches Activity:: Elevate Remove Dressings/Wound Care:: 48 hours Shower/Bathe:: 48 hours Diet:: As Tolerated Discharge Orders Discharge Orders: Discharge Order (Routine); Ordered 08/25/22 Ordered By: Mela Epperson
[2022-08-25] MEDS: ceFAZolin 3,000 MG in Normal Saline 100 ML 200 MG IVPB (13:10)
[2022-08-25] MEDS: Bupivacaine 0.5% Pres-Free 30 ML VIAL (13:26)
[2022-08-25] MEDS: EPINEPHrine 30 MG/30 ML VIAL (13:39)
[2022-08-25] MEDS: Normal Saline 10 ML VIAL IJ (14:36)
[2022-08-25] MEDS: HYDROmorphone 2 MG/ML SYR IVP ×2 (14:36→14:49)
--- NOTE | 2022-08-25 15:33 | W.ANESPOSTOP ---
Postoperative Evaluation Date, Time and Location Date Performed: 08/25/22 Time Performed: 15:33 Patient Location: Day Surgery Unit Vital Signs Most Recent Imported Vital Signs: Most Recent Vital Signs Temp Pulse Resp BP Pulse Ox 36.4 C L 69 18 141/69 H 96 08/25/22 15:07 08/25/22 15:07 08/25/22 15:07 08/25/22 15:07 08/25/22 15:07 Pain Score Most Recent Pain Score: Most Recent Pain Score Pain Level 4 08/25/22 14:53 Assessment Mental Status: Awake (Alert & Oriented to Patient Baseline) Airway and Respiratory Function: Patent airway with normal (patient baseline) respiratory exam Cardiovascular Function: Hemodynamically Stable Hydration Status: Adequately Hydrated Nausea & Vomiting: No Nausea or Vomiting Pain: Pain is tolerable per patient Peripheral Nerve Block: Patient did not receive a nerve block
--- NOTE | 2022-08-25 15:53 | W.PM.OP ---
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 Nonoperative measures were exhausted but disability due to lack of motion persisted. I discussed knee arthroscopy with synovectomy with maniuplation with the patient. I reviewed the risks of the procedure to include, but not limited to, bleeding, infection, pain, continued stiffness, recurrence, blood clot. Despite these risks, the patient elected to proceed. Findings: Preoperative Range of Motion: Flexion: 85 Extension:5 Postoperative Range of Motion: Flexion:115 Extension:5 Procedure Description: Diego was greeted in the preoperative holding area where the correct side was identified and marked. The consent was reviewed with the patient and signed. The history and physical was updated. All questions were answered. He was taken back to the operating room. The patient was placed into the supine position on the operating room table. All bony prominences were well padded. Prophylactic antibiotics in the form of Cefazolin were administered. Preoperative range of motion was assessed as 5 - 85. The left leg was then prepped with Chloraprep and draped in a standard fashion with stockinette and extremity drape. A timeout to confirm correct identity, side and site, procedure, allergies, anesthesia, and medical concerns was performed. The leg was placed into a pneumatic leg hull, [id number]. A standard lateral portal was made at the lateral border of the patella tendon in line with the inferior pole of the patella, soft spot. The skin and deep tissue was incised sharply and the blunt trochar was inserted atraumatically. There was dense scar tissue seen throughout the knee which made visualization very difficult. Once I had visualization of the femoral component, a superolateral portal was then established with spinal needle localization just superior and lateral to the patella. A knife was taken down through the skin and soft tissue to enter the knee joint. Starting in the superior compartment above the femoral component and anterior to the femur I released all scarring between the anterior femoral synovium and the overlying extensor mechanism. This was taken through all of any noticeable scar tissue until the superior patellar pouch was fully released and mobile. This resection was carried out mostly with electrocautery as well as shaver. Once this was released fully from lateral to medial superiorly I then continue working down the lateral gutter. All scar tissue in the lateral gutter was released so there is normal space and movement between the capsular tissues and the edge of the femoral component and femur. This was taken down through the lateral gutter such that I was able to identify the polyethylene to its posterior corner. Once again, all scar tissue in this area was resected so the polyethylene was easily visible and there is no interposed tissue in the back or the polyethylene was identified. I think continue to work anteriorly. To continue the synovectomy from the lateral compartment to the anterior compartment into the medial compartment, I placed a medial portal under spinal needle localization. Once this was in place it became another working portal and I continued the synovectomy through the anterior compartment to the medial compartment. Once again, I freed up the medial gutter so I was able to visualize the polyethylene from the anterior posterior margins. There is no interposed tissue after full synovectomy was performed. Adhesions between the capsule and the femur were released. This was continued up the medial gutter until it met up with the releases performed previously in the superior compartment. Any remnant scar tissue from around the patella was then removed with a shaver and electrocautery. The arthroscope was brought back into the suprapatellar pouch and the leg was in full extension. The knee was thoroughly irrigated with the arthroscopic fluid on high flow and pressure. Inflow was stopped and excess fluid was removed. The leg was removed from the spider leg hull and manipulation was performed. I first push the knee into flexion and was able to obtain 115 degrees. I then worked the knee into extension, slowly applying an anterior to posterior directed pressure with support of the knee and no significant lever arm. This was cycled multiple times until I was able to obtain extension of 5 degrees. The wounds were closed with 4-0 Nylon. 0.25% bupivacaine was injected around the portal sites and into the knee. The wounds were dressed with Xeroform, 4x4 gauze, ABD pad, Kerlix and an TARUN wrap. A cryo-cuff was applied. The patient tolerated the procedure well and was returned to the Same Day Surgery area in a stable condition suffering no known complication..
== END 2022-08-25 16:03 | disposition home or self-care (01) ==
PROVIDERS: PCP Nurse Practitioner Family; Visit Provider Student in an Organized Health Care Education/Training Program
PROC: (CPT 29870; principal; 2022-08-25 13:45)
DX: T84.82XA Fibrosis due to internal orthopedic prosthetic devices, implants and grafts, initial encounter (principal); E11.21 Type 2 diabetes mellitus with diabetic nephropathy; I10 Essential (primary) hypertension
CPT/HCPCS: 29876; J0690; J1100; J1170; J2250; J2405; J2704

== ENCOUNTER → 2022-09-07 09:36 | Outpatient (BNVA) | payer OTHER, SELFPAY | PROVIDERS: PCP Nurse Practitioner Family; Referring Provider Nurse Practitioner Family; Visit Provider Physician Assistant | DX: T84.82XA Fibrosis due to internal orthopedic prosthetic devices, implants and grafts, initial encounter (principal); T84.84XA Pain due to internal orthopedic prosthetic devices, implants and grafts, initial encounter; Z96.652 Presence of left artificial knee joint; Z98.890 Other specified postprocedural states ==

== ENCOUNTER 2022-11-10 03:50 | Outpatient (CLI) | payer OTHER, SELFPAY ==
[2022-11-10 12:54] LABS: TSH (W/Ref FT4) 0.77 uIU/mL (0.36-3.74)
== END 2022-11-10 03:51 | disposition home or self-care (01) ==
LOC: LOS 03:50
PROVIDERS: PCP Nurse Practitioner Family; Visit Provider Nurse Practitioner Family
DX: R53.83 Other fatigue (principal)
CPT/HCPCS: 36415; 84443

== ENCOUNTER → 2022-11-27 10:06 | Outpatient (BNVA) | payer OTHER, SELFPAY | PROVIDERS: PCP Nurse Practitioner Family; Referring Provider Family Medicine; Visit Provider Surgery | DX: Z12.11 Encounter for screening for malignant neoplasm of colon (principal) | CPT/HCPCS: 99242 ==

== ENCOUNTER 2023-01-15 11:34 | Day surgery (SDC) | payer OTHER, SELFPAY ==
--- NOTE | 2023-01-14 20:52 | W.PM.HP.N ---
Date of service: 01/15/23 Time of Service: :17 Assessment and Plan Assessment and plan (1) History of colon polyps: Assessment and plan: We discussed the risks and benefits of surveillance and screening colonoscopies. I think he has a good understanding of the risks and benefits. He provided informed consent today, and we can proceed with colonoscopy as planned. History of Present Illness History of Present Illness Chief Complaint: Encounter for colon cancer screening Narrative: Diego is 57 years old, and he is due for his next screening colonoscopy. He has normal and consistent bowel habits. He denies melena, hematochezia, or any family history of colon cancers. 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 Right shoulder pain (Acute) Dysfunction of right rotator cuff (Acute) History of total left knee replacement (TKR) (Acute 02/18/22) Heart murmur (Acute) 2021-, 3.- echo-nl fx, nl valve Pericardial effusion (Acute) 01/2022-incidental finding on preoperative echocardiogram for heart murmur.-Unclear cause Lower extremity edema (Acute) Painful total knee replacement, left (Acute) Arthrofibrosis of total knee arthroplasty (Acute) Status post arthroscopy of left knee (Acute 08/25/22) Arthroscopic synovectomy and manipulation of left knee Bilateral shoulder pain (Acute) Fatigue (Acute) Medical History History of colon polyps Surgical History H/O discectomy (~02/08/18) c5-6 History of colonoscopy History of open reduction and internal fixation (ORIF) procedure (~11/08/84) r ankle fx History of orthopedic surgery (~1989) right ankle Hx of total knee replacement left Family History Mother Breast cancer Diabetes Father , 89 Heart disease Sister No problems noted. Sister No problems noted. Brother No problems noted. Social History Smoking/Tobacco Use Status: Former Tobacco Use tobacco type: cigars Quit Date: 11/08/19 Second Hand Exposure: Yes Smoking risk assessment performed?: Yes Alcohol Intake: current Alcohol Intake frequency: holidays/special occasions only Alcohol type: beer Drug use: Never Substance use type: does not use Caregiver/Support person: No Household members: spouse Communication Needs: None Do you need help understanding health information?: Rarely Pets and animals: Yes Pets and animals: dog(s) Sexually active: Yes Do you think of yourself as: straight/heterosexual Current gender identity: male What is your relationship status?: How often do you talk on the phone with friends or family?: three or more times per week How often do you get together with friends or relatives?: once per week How often do you attend druze or synagogue services?: 1-3 times per year Do you belong to any clubs or organized social groups?: no Panel score (0-1 are the most socially isolated patients): 2 What type of physical activity do you participate in: none Miriam/Mormon: Mandaeism Special miriam needs: No Seatbelt use: always Helmet use: Yes Helmet use: always Drive intox or ride w/intox 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 Do you feel safe at home: Yes Do you feel safe in your relationship?: Yes Meds Allergies and Home Medications Allergies Allergy/AdvReac Type Severity Reaction Status Date / Time No Known Allergies Allergy Verified 01/15/23 12:12 Home Medications Medication Instructions Recorded Confirmed Type fluticasone propionate 50 2 spray intranasal DAILY 12/31/21 01/15/23 History mcg/actuation nasal spray,suspension (Flonase Allergy Relief) metformin 1,000 mg tablet 1,000 mg PO BID #180 tabs 03/02/22 01/15/23 Rx acetaminophen 500 mg tablet 1,000 mg PO Q8H PRN pain #90 tabs 08/25/22 01/15/23 Rx ibuprofen 600 mg tablet 600 mg PO TID PRN pain #60 tabs 08/25/22 01/15/23 Rx hydrochlorothiazide 50 mg tablet 50 mg PO DAILY #90 tabs 09/23/22 01/15/23 Rx amlodipine 10 mg tablet 10 mg PO DAILY #90 tabs 10/09/22 01/15/23 Rx losartan 100 mg tablet 100 mg PO DAILY #90 tabs 11/04/22 01/15/23 Rx zdljqlsu-fqt-iggkh acid 300 1 tab PO DAILY 11/27/22 01/15/23 History mcg-lycopene 600 mcg-lutein 300 mcg tablet (Centrum Silver Ultra Men's) sertraline 100 mg tablet 100 mg PO HS #90 tabs 12/03/22 01/15/23 Rx simvastatin 40 mg tablet 40 mg PO HS #90 tabs 12/03/22 01/15/23 Rx metoprolol succinate 50 mg 50 mg PO DAILY #90 tabs 01/06/23 01/15/23 Rx tablet,extended release 24 hr Exam Const General: cooperative, healthy appearing and comfortable Orientation: awake and oriented x3 Eyes General: appearance normal, both eyes and all related structures Conjunctivae: conjunctivae normal Sclera: sclerae normal Resp Effort & Inspection: normal respiratory effort and able to speak in complete sentences Auscultation: clear to auscultation bilaterally Cardio Jugular venous pressure: no JVD Rate: regular rate Rhythm: regular rhythm Heart Sounds: S1 normal and S2 normal GI Inspection: non-distended Palpation: soft, no guarding, no hernias and nontender Auscultation: normal bowel sounds Skin General skin exam: normal turgor Neuro General: patient alert, patient awake and patient oriented x3 Cognition: normal cognition Extrem Right lower extremity: no edema Left lower extremity: no edema Time Spent Time spent with Patient: <40 minutes Time was spent: preparing to see the patient(eg.review tests) and counseling the patient
--- NOTE | 2023-01-14 21:02 | W.PM.DSUDISC ---
Date of service: 01/15/23 Time of Service: 14:38 Discharge Plan Disposition Patient Disposition: Home Condition: Good Discharge Details Reason For Visit: Screening colonoscopy Attending Provider: Cirilo Tay Primary Care Provider: Mikhail Elizabeth Home Meds and New Rx's Prescriptions: Continued Centrum Silver Ultra Men's 300-600-300 mcg tablet 1 tab PO DAILY simvastatin 40 mg tablet 40 mg PO HS Qty: 90 3RF sertraline 100 mg tablet 100 mg PO HS Qty: 90 3RF metoprolol succinate 50 mg tablet extended release 24 hr 50 mg PO DAILY Qty: 90 3RF losartan 100 mg tablet 100 mg PO DAILY Qty: 90 3RF fluticasone propionate [Flonase Allergy Relief] 50 mcg/actuation spray,suspension 2 spray intranasal DAILY Rx Instructions: administer into each nostril metformin 1,000 mg tablet 1,000 mg PO BID Qty: 180 3RF hydrochlorothiazide 50 mg tablet 50 mg PO DAILY Qty: 90 3RF amlodipine 10 mg tablet 10 mg PO DAILY Qty: 90 3RF acetaminophen 500 mg tablet 1,000 mg PO Q8H PRN Qty: 90 0RF Rx Instructions: Take two tablets up to every 8 hours as needed for pain ibuprofen 600 mg tablet 600 mg PO TID PRN (Reason: pain) Qty: 60 0RF Discontinued polyethylene glycol 3350 17 gram/dose powder 238 g PO ONCE Qty: 238 0RF Rx Instructions: take per colonoscopy instructions bisacodyl [Dulcolax (bisacodyl)] 5 mg tablet,delayed release (DR/EC) 5 mg PO ONCE Qty: 4 0RF Rx Instructions: take per colonoscopy instructions Discharge Instructions Instructions: Colorectal Polyps (GEN), Diverticulosis (GEN), Diverticulosis Diet (GEN) Additional Instructions: 1. If tolerated, consume a soft, low fiber diet for 1-2 days. 2[address] Do not drive, drink alcohol, operate machinery, make critical decisions, or do activities that require coordination or balance for 24 hours. 3. Because air was put into your colon during the procedure, expelling air from your rectum (passing gas or farting) is normal. 4. You may not have a bowel movement for 1-3 days because of the colonoscopy prep. This is normal. 5. Go directly to the emergency room if you notice any of the following: Develop chills (warm to touch), or if you have a thermometer and your temperature is above 101 Difficulty breathing or difficultly swallowing Persistent vomiting Severe abdominal pain, other than gas cramps Severe chest pain Black, tarry stools Any bleeding ? exceeding one tablespoon 6. Call your physician if the site where your intravenous was started becomes red, swollen, painful, and warm to touch. 7. Your physician has reviewed your pre-procedure medications. Please continue to take those medications as previously ordered. You will be given specific information/education regarding any changes to your medications before leaving. Activity:: Activity as Tolerated Diet:: As Tolerated Discharge Orders Discharge Orders: Discharge Order (Routine); Ordered 01/14/23 Ordered By: Cirilo Tay DS: Diagnosis Discharge Diagnosis (1) History of colon polyps: Asessment and Plan: Follow-up on polypectomy results
--- NOTE | 2023-01-14 21:04 | W.COLOREPORT ---
Date of service: 01/15/23 Time of Service: 14:40 Colonoscopy Report Date of procedure: 01/15/23 Pre-op diagnosis general: Screening colonoscopy Post-op diagnosis procedure note: other (Colon polyps and diverticulosis) Procedure: Colonoscopy Surgeon: Cirilo Tay Anesthesia Type: General:No Airway Estimated blood loss (mL): 15 Pathology: other (1 cecal polyp, colon polyps from 90, 80, 65, and 55 cm) Complications: None Disposition: same day Indications: Diego is a 57-year-old male who is due for his next colonoscopy. He has had polyps on his study. Prep: Miralax/Dulcolax Procedure Start Time: 13:25 Procedure End Time: 14:19 Retraction Time: 34 Findings: Sigmoid diverticulosis, multiple large colon polyps Procedure Description: After the induction of monitored anesthetic care, and with the patient in left lateral decubitus position, I began by performing an external anorectal exam.? Perineum and skin were normal, as was the anal verge.? There was no evidence of external hemorrhoids.? Next, I performed a digital rectal exam.? I did not appreciate any abnormal findings.? Next, I advanced a colonoscope into the rectal vault.? I performed retroflexion.? This appeared normal.? Using insufflation, I then advanced the colonoscope beyond the rectal folds and into the sigmoid colon before advancing towards the cecum.? The quality of the prep was adequate.? The scope was noted to be in the cecum by identification of the ileocecal valve and appendiceal orifice.? There was a single cecal polyp, that I estimate is less than 0.25 cm. It is sessile. I removed it with cold forcep polypectomy. There was minimal bleeding. I then began withdrawing the colonoscope using repeated irrigation as necessary for full evaluation of the colonic mucosa. In the ascending and transverse colons, there were several large polyps. There was a polyp in excess of 1 cm at 90 cm from the anal verge. This was mildly pedunculated. I removed it with snare polypectomy. There was minimal bleeding here. There was a cluster of 4 polyps at 80 cm. 2 were greater than 1 cm, and 1 was 0.75 cm. These were mostly sessile. I removed these with snare polypectomy. Similarly, there was a cluster of 3 polyps around 65 cm. These were between 0.75 and 1 cm. They were sessile. I removed them with a combination of snare polypectomy, as well as cold forcep polypectomy. Around 55 cm from the anal verge I identified a 0.25 cm polyp. ?It appeared sessile in character. ?I was able to remove this with a cold forcep polypectomy. ?I examined the site, and there was minimal bleeding. ?Once this was completed, I continued to withdraw the scope and examine the remainder of the colonic mucosa. Once the scope was withdrawn to the level of the rectum, great care was taken to examine portions of the rectal folds.? Finally, the scope was withdrawn and the patient was brought to the same-day surgery recovery unit as the anesthetic wore off. ?The findings and instructions were shared with the patient prior to discharge.
[2023-01-15 11:33] VITALS: BP 155/63; PULSE 70; RESP 18; TEMP 36.1; O2SAT 97
--- NOTE | 2023-01-15 12:58 | ANES.PREOP_ITS ---
General Info Date of Service Date Performed: 01/15/23 Height: 5 ft 10 in Weight: 138.346 kg Body Mass Index (BMI): 43.7 Surgical Procedure: Operation Date: 01/15/23 13:50 Proposed Procedure Side Surgeon theresa Tay MD Meds Allergies and Home Medications Allergies Allergy/AdvReac Type Severity Reaction Status Date / Time No Known Allergies Allergy Verified 01/15/23 12:12 Home Medication Medication Instructions Recorded fluticasone propionate 50 2 spray intranasal DAILY 12/31/21 mcg/actuation nasal spray,suspension (Flonase Allergy Relief) metformin 1,000 mg tablet 1,000 mg PO BID #180 tabs 03/02/22 acetaminophen 500 mg tablet 1,000 mg PO Q8H PRN pain #90 tabs 08/25/22 ibuprofen 600 mg tablet 600 mg PO TID PRN pain #60 tabs 08/25/22 hydrochlorothiazide 50 mg tablet 50 mg PO DAILY #90 tabs 09/23/22 amlodipine 10 mg tablet 10 mg PO DAILY #90 tabs 10/09/22 losartan 100 mg tablet 100 mg PO DAILY #90 tabs 11/04/22 awdmlyqd-nzy-sgsap acid 300 1 tab PO DAILY 11/27/22 mcg-lycopene 600 mcg-lutein 300 mcg tablet (Centrum Silver Ultra Men's) sertraline 100 mg tablet 100 mg PO HS #90 tabs 12/03/22 simvastatin 40 mg tablet 40 mg PO HS #90 tabs 12/03/22 metoprolol succinate 50 mg 50 mg PO DAILY #90 tabs 01/06/23 tablet,extended release 24 hr Current Visit Medications: Current Medications Generic Name Dose Route Start Last Admin Trade Name Umeshq PRN Reason Stop Dose Admin Hyoscyamine Sulfate 0.125 mg 01/14/23 21:05 Hyoscyamine 0.125 Mg Sl/Oral/Chew SL DIRECTED PRN Ringer's Solution 1,000 mls @ 80 mls/hr 01/15/23 06:00 IV 01/15/23 23:59 [facility]ION [facility] IV Miscellaneous Supplies 1 each 01/15/23 06:00 Iv Access IV 01/15/23 23:59 DIRECTED GENE Ondansetron HCl 4 mg 01/14/23 21:05 Ondansetron 4 Mg/2 Ml Vial IVP Q4H PRN PRN Nausea / Vomiting Sodium Chloride 0 ml 01/15/23 06:00 Normal Saline Flush 10 Ml Syr IV 01/15/23 23:59 PRN PRN Sodium Chloride 0 ml 01/15/23 06:00 Normal Saline 10 Ml Vial IJ 01/15/23 23:59 DIRECTED PRN Sterile Water 0 ml 01/15/23 06:00 Water,Injection,Sterile 10 Ml Vial IJ 01/15/23 23:59 DIRECTED PRN PFSH Active Problems Active Problems: Problem Status Onset Code Sleep apnea G47.30 Essential hypertension I10 Hyperlipemia E78.5 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 Obesity E66.9 Hypokalemia E87.6 Depression F32.A Colon polyp K63.5 Type 2 diabetes mellitus with diabetic nephropathy E11.21 Right shoulder pain M25.511 Dysfunction of right rotator cuff M67.911 History of total left knee replacement (TKR) 02/18/22 Z96.652 Heart murmur R01.1 Pericardial effusion I31.3 Lower extremity edema R60.0 Painful total knee replacement, left T84.84XA, Z96.652 Arthrofibrosis of total knee arthroplasty T84.82XA Status post arthroscopy of left knee 08/25/22 Z98.890 Bilateral shoulder pain M25.511, M25.512 Fatigue R53.83 Medical History Medical History History of colon polyps Medical History Comments:: - 4 pins in neck c4-c6 - front tooth missing Surgical History Surgical History (Updated 01/15/23 @ 12:12 by Bertha العراقي RN) H/O discectomy (~02/08/18) c5-6 History of colonoscopy History of open reduction and internal fixation (ORIF) procedure (~11/08/84) r ankle fx History of orthopedic surgery (~1989) right ankle Hx of total knee replacement left Tobacco Smoking/Tobacco Use Status: Former Tobacco Use Passive smoking exposure: Yes Second hand exposure: Yes Alcohol Alcohol Intake: current Alcohol intake frequency: holidays/special occasions only Alcohol type: beer Substance Use Substance use: Never Substance use type: does not use Vital Signs and Lab Results Vital Signs Most Recent Vital Signs in EMR: Most Recent Vital Signs Temp Pulse Resp BP Pulse Ox 36.1 C L 70 18 155/63 H 97 01/15/23 11:33 01/15/23 11:33 01/15/23 11:33 01/15/23 11:33 01/15/23 11:33 Point of Care Results Point of Care Results: Finger Stick Blood Glucose 150 01/15/23 11:58 Lab Results Blood Type / Crossmatch: No Data to Display Complete Blood Count: No Data to Display Complete Metabolic Panel: No Data to Display Liver Function Panel: No Data to Display Coagulation Panel: No Data to Display Cardiac Panel: No Data to Display Arterial Blood Gas: No Data to Display Venous Blood Gas: No Data to Display Pancreas Panel: No Data to Display Thyroid Panel: No Data to Display Infectious Disease: No Data to Display Blood Cultures: No Data to Display Toxicology Panel: No Data to Display Imaging and Studies Imaging and Studies Study information below may be from another EMR and interpreted by another provider. Please see original notes in EMR for more complete details. Echocardiogram Summary: Date of Exam: 07/08/22Sex: M Admission Date: 07/08/22 : 1965 Age: 56 APPROVED REPORT EXAM: Comprehensive 2D, Doppler, and color-flow Echocardiogram Patient Location: Out-Patient Business Unit Leader: Sonia Hadley RDCS (AE) Indications: Pericardial effusion, sleep apnea, murmur Other Information Study Quality: Adequate Conclusion Normal left ventricular wall thickness and chamber size. Estimated ejection fraction is 60%. Wall motion is normal Normal right ventricular size and systolic function Both atria are normal in size There is no structural or hemodynamically significant valvular disease Estimated right ventricular systolic pressure is 43 mmHg Moderate circumferential pericardial effusion, no evidence of tamponade Anesthesia Assessment and Plan Anesthesia History Personal History: No History of Anesthesia Complications Family History: No Family History of Anesthesia Complications Exercise Tolerance Exercise Tolerance: Metabolic Equivalents>4 Pertinent Negatives Pertinent Negatives: No Symptoms of GERD, No Major Cardiovascular Symptoms or Complaints, No Major Pulmonary Symptoms or Complaints and No History of CVA/TIA Cardiac & Pulmonary Exam Cardiac Exam: Normal S1/S2 Heart Sounds Pulmonary Exam: Clear Bilateral Breath Sounds Implantable Cardiac Device Does patient have a Pacemaker or an ICD?: No Airway Exam Known Difficult Airway: No Mallampati Class: 2 Mouth Opening: Normal (> 3cm) Thyromental Distance: Greater than 3 cm Neck Range of Motion: Limited ROM and History of Cervical Fusion Neck Circumference: Thick Teeth Condition: Loose or Chipped ASA Classification ASA Score: ASA 3 Emergency Case?: No NPO Status NPO Status: NPO Clears >2 hours, Solids >8 hours Anesthesia Plan Resuscitation Status: Full Code Anesthesia Technique: General Anesthesia Airway Planned: Natural Airway Pain Management: Intrathecal Analgesia Monitors Used: Standard Monitors
[2023-01-15] MEDS: Lactated Ringers 1,000 ML 80 ML IV (13:02)
[2023-01-15 13:08] VITALS: BMI 43.7
--- NOTE | 2023-01-15 13:37 | BOWEL_PTH ---
PATIENT: Diego Cardoza JR LOC: [facility] U#:[id number] AGE/SX: 57/M ROOM: RE01/15/[address]: Cirilo Tay MD : 1965 BED: DIS: 01/15/2023 SPEC #: [id number] RECD: 01/15/23 16:27 STATUS: LAM RE #: [id number] DULCE: 01/15/23 13:[address]: Cirilo Tay DEPT: Surgical Specimen RECD BY: Silvana Griffin ENTERED: 01/15/23 16:28 SP TYPE: Bowel OTHR DR: Mikhail Elizabeth, [employer] Tissues: 1 - BIOPSY BOWEL 2 - BIOPSY BOWEL 3 - BIOPSY BOWEL 4 - BIOPSY BOWEL 5 - BIOPSY BOWEL Procedures: GROSS AND MICRO LEVEL 4 Comments: [id number]
[2023-01-15 14:30] VITALS: BP 121/68; PULSE 70; RESP 16; TEMP 36.3; O2SAT 96
--- NOTE | 2023-01-15 14:43 | W.ANESPOSTOP ---
Postoperative Evaluation Date, Time and Location Date Performed: 01/15/23 Time Performed: 14:43 Patient Location: Day Surgery Unit Vital Signs Most Recent Imported Vital Signs: Most Recent Vital Signs Temp Pulse Resp BP Pulse Ox 36.3 C L 70 16 121/68 96 01/15/23 14:30 01/15/23 14:30 01/15/23 14:30 01/15/23 14:30 01/15/23 14:30 Pain Score Most Recent Pain Score: Most Recent Pain Score Pain Level 0 01/15/23 14:30 Assessment Mental Status: Awake (Alert & Oriented to Patient Baseline) Airway and Respiratory Function: Patent airway with normal (patient baseline) respiratory exam Cardiovascular Function: Hemodynamically Stable Hydration Status: Adequately Hydrated Nausea & Vomiting: No Nausea or Vomiting Pain: Pt. Denies Any Pain Peripheral Nerve Block: Patient did not receive a nerve block
[2023-01-15 14:59] VITALS: BP 139/71; PULSE 76; RESP 18; TEMP 36.4; O2SAT 98
== END 2023-01-15 15:18 | disposition home or self-care (01) ==
PROVIDERS: PCP Nurse Practitioner Family; Visit Provider Surgery
PROC: 0DJD8ZZ Inspection of Lower Intestinal Tract, Via Natural or Artificial Opening Endoscopic (ICD-10-PCS; CPT 45378; principal; 2023-01-15 13:45)
DX: Z12.11 Encounter for screening for malignant neoplasm of colon (principal); Z86.010 Personal history of colon polyps; K63.5 Polyp of colon; K57.30 Diverticulosis of large intestine without perforation or abscess without bleeding
CPT/HCPCS: 45385; 45380; 88305

== ENCOUNTER 2023-01-26 15:22 | Outpatient (CLI) | payer OTHER, SELFPAY ==
--- NOTE | 2023-01-26 13:15 | DI.RAD_ITS ---
Exam(s) XR SHOULDER LT COMPLETE 2+V EXAM: XR SHOULDER LT COMPLETE 2+V CLINICAL HISTORY: bilat shoulder pain. TECHNIQUE: 2D digital imaging was performed of the left shoulder. Two images were obtained. AP and axillary views were obtained. COMPARISON: No exams were available for comparison FINDINGS: BONES: No acute fracture is present. No bony destructive lesion is seen. JOINTS: No dislocation present. Mild degenerative changes are seen at the acromioclavicular joint. T he glenohumeral joint is well maintained. SOFT TISSUE: Normal. IMPRESSION: Mild degenerative changes of the AC joint. DATA REPOSITORY: RADIATION DOSE DELIVERED:
--- NOTE | 2023-01-26 13:15 | DI.RAD_ITS ---
Exam(s) XR SHOULDER RT COMPLETE 2+V EXAM: XR SHOULDER RT COMPLETE 2+V CLINICAL HISTORY: bilat shoulder pain. TECHNIQUE: 2D digital imaging was performed of the right shoulder. Two images were obtained. AP an d axillary views were obtained. COMPARISON: CR XR SHOULDER RT COMPLETE 2+V from 01/19/2022 FINDINGS: BONES: No acute fracture is present. No bony destructive lesion is seen. JOINTS: No dislocation present. There is mild spurring at the glenohumeral joint. SOFT TISSUE: Normal. IMPRESSION: Stable mild degenerative changes at the glenohumeral joint. DATA REPOSITORY: RADIATION DOSE DELIVERED:
== END 2023-01-26 15:23 | disposition home or self-care (01) ==
LOC: DIORS 15:23
PROVIDERS: PCP Nurse Practitioner Family; Referring Provider Nurse Practitioner Family; Visit Provider Student in an Organized Health Care Education/Training Program
DX: M19.011 Primary osteoarthritis, right shoulder (principal); M19.012 Primary osteoarthritis, left shoulder
CPT/HCPCS: 20610; 99214; 73030; J1030

== ENCOUNTER 2023-02-19 09:51 | Outpatient (CLI) | payer OTHER, SELFPAY ==
--- NOTE | 2023-02-19 08:45 | DI.RAD_ITS ---
Exam(s) XR KNEE LT 2V AP,LAT EXAM: XR KNEE LT 2V AP,LAT INDICATION: annual f/u L TKA. COMPARISON: CR XR KNEE LT 3V AP,LAT,NABIL from 08/03/2022 TECHNIQUE: 2D digital imaging was performed. Two views. FINDINGS: There has been no change in the alignment of the total knee prosthesis. There are no suspicious surr ounding bony lucencies. No new abnormalities. DATA REPOSITORY: RADIATION DOSE DELIVERED:
== END 2023-02-19 09:52 | disposition home or self-care (01) ==
LOC: DIORS 09:51
PROVIDERS: PCP Nurse Practitioner Family; Referring Provider Nurse Practitioner Family; Visit Provider Student in an Organized Health Care Education/Training Program
DX: Z96.652 Presence of left artificial knee joint (principal); Z47.1 Aftercare following joint replacement surgery; T84.82XA Fibrosis due to internal orthopedic prosthetic devices, implants and grafts, initial encounter; M19.011 Primary osteoarthritis, right shoulder
CPT/HCPCS: 99213; 73560

== ENCOUNTER 2023-03-11 11:31 | Outpatient (CLI) | payer OTHER, SELFPAY | END 2023-03-11 11:32 | disposition home or self-care (01) | LOC: ORDER INT 11:33 | PROVIDERS: PCP Nurse Practitioner Family; Referring Provider Nurse Practitioner Family; Visit Provider Student in an Organized Health Care Education/Training Program | DX: M67.911 Unspecified disorder of synovium and tendon, right shoulder (principal); Z53.9 Procedure and treatment not carried out, unspecified reason | CPT/HCPCS: J1040 ==

== ENCOUNTER → 2023-03-11 11:31 | Outpatient (BNVA) | payer OTHER, SELFPAY | PROVIDERS: PCP Nurse Practitioner Family; Referring Provider Nurse Practitioner Family; Visit Provider Student in an Organized Health Care Education/Training Program | DX: M19.011 Primary osteoarthritis, right shoulder (principal); M19.012 Primary osteoarthritis, left shoulder; M67.911 Unspecified disorder of synovium and tendon, right shoulder | CPT/HCPCS: 20611 ==

== ENCOUNTER → 2023-05-04 14:28 | Outpatient (BNVA) | payer OTHER, SELFPAY | PROVIDERS: PCP Nurse Practitioner Family; Referring Provider Nurse Practitioner Family; Visit Provider Student in an Organized Health Care Education/Training Program | DX: M19.011 Primary osteoarthritis, right shoulder (principal); M75.101 Unspecified rotator cuff tear or rupture of right shoulder, not specified as traumatic; E66.01 Morbid (severe) obesity due to excess calories; Z68.42 Body mass index [BMI] 45.0-49.9, adult | CPT/HCPCS: 99213 ==

== ENCOUNTER 2023-05-25 00:38 | Outpatient (CLI) | payer OTHER, SELFPAY ==
--- NOTE | 2023-05-25 14:45 | DI.MRI_ITS ---
Exam(s) MR UPPER JOINT RT WO EXAM: MR UPPER JOINT RT WO CLINICAL HISTORY: ? ROTATOR CUFF TEAR,rt shoulder pain,m25.511. TECHNIQUE: Multiplanar multisequence MRI was performed. COMPARISON: CR XR SHOULDER RT COMPLETE 2+V from 01/26/2023 FINDINGS: The examination is limited due to patient motion artifact. BONES: There is no fracture or contusion pattern. JOINTS: The acromioclavicular joint is normal. The glenohumeral joint is normal. TENDONS: Supraspinatus: There is a full-thickness tear through the anterior supraspinatus tendon. Infraspinatus: There is a full-thickness tear through the infraspinatus tendon at its insertion site. Subscapularis: Unremarkable. Teres Minor: Unremarkable. Biceps and Welsh: Unremarkable. MUSCLES: There is minimal fatty atrophy of the supraspinatus and infraspinatus muscles. GLENOID LABRUM: Unremarkable on this noncontrast examination. SOFT TISSUES: Unremarkable. LIGAMENTS: Unremarkable. OTHER: There is a small amount of fluid in the subacromial subdeltoid bursa. IMPRESSION: 1. Examination is limited by patient motion artifact. 2. Full-thickness tear through the anterior aspect of the supraspinatus tendon. 3. Full-thickness tear of the infraspinatus tendon at its insertion site. 4. Mild fatty atrophy of the supraspinatus and infraspinatus muscles. DATA REPOSITORY:
== END 2023-05-25 00:58 ==
LOC: DI 00:38
PROVIDERS: PCP Nurse Practitioner Family; Visit Provider Student in an Organized Health Care Education/Training Program
DX: M25.511 Pain in right shoulder (principal); M75.121 Complete rotator cuff tear or rupture of right shoulder, not specified as traumatic; X58.XXXA Exposure to other specified factors, initial encounter
CPT/HCPCS: 73221

== ENCOUNTER → 2023-06-02 10:56 | Outpatient (BNVA) | payer OTHER, SELFPAY | PROVIDERS: PCP Nurse Practitioner Family; Referring Provider Nurse Practitioner Family; Visit Provider Student in an Organized Health Care Education/Training Program | DX: M19.011 Primary osteoarthritis, right shoulder (principal); M75.101 Unspecified rotator cuff tear or rupture of right shoulder, not specified as traumatic; M75.21 Bicipital tendinitis, right shoulder | CPT/HCPCS: 99214 ==

== ENCOUNTER 2023-06-18 07:10 | Day surgery (SDC) | payer OTHER, SELFPAY ==
[2023-06-18] VITALS (10 sets, daily range): BP systolic 139–166; BP diastolic 60–81; PULSE 75–84; RESP 12–20; TEMP 36.3–36.7; O2SAT 96–100; BMI 43.7
--- NOTE | 2023-06-18 07:05 | W.PM.DSUDISC ---
Date of service: 06/18/23 Time of Service: 12:00 Discharge Plan Disposition Patient Disposition: Home Condition: Stable Discharge Details Attending Provider: Yordy Huerta Primary Care Provider: Mikhail Elizabeth Home Meds and New Rx's Prescriptions: Continued simvastatin 40 mg tablet 40 mg PO HS Qty: 90 3RF metformin 1,000 mg tablet 1,000 mg PO BID Qty: 180 3RF losartan 100 mg tablet 100 mg PO DAILY Qty: 90 3RF metoprolol succinate 100 mg tablet extended release 24 hr 100 mg PO DAILY Qty: 90 3RF triamcinolone acetonide 0.5 % cream 1 applic topical BID Qty: 15 2RF Jardiance 10 mg tablet 10 mg PO DAILY Qty: 90 3RF Patient Comments: 06/18/23 Pt reports he has not started this yet. fluticasone propionate [Flonase Allergy Relief] 50 mcg/actuation spray,suspension 2 spray intranasal DAILY Rx Instructions: administer into each nostril amlodipine 10 mg tablet 10 mg PO DAILY Qty: 90 3RF acetaminophen 500 mg tablet 1,000 mg PO Q8H PRN Qty: 90 0RF Rx Instructions: Take two tablets up to every 8 hours as needed for pain spironolactone 50 mg tablet 50 mg PO DAILY Patient Comments: TAKE 1 TABLET (50MG) BY MOUTH DAILY Discontinued ibuprofen 600 mg tablet 600 mg PO TID PRN (Reason: pain) Qty: 60 0RF Discharge Instructions Additional Instructions: Surgery: Right shoulder arthroscopy with rotator cuff repair (supraspinatus), biceps tenodesis, extensive debridement, distal clavicle excision, and subacromial decompression. Activity: For 6 weeks, you should keep your arm at your side in a neutral position at all times except for physical therapy. Do not try to lift or raise your arm using your own muscles. You should use the sling whenever you are out of the house. You may have to adjust the abduction pillow or remove it for comfort. At home it is best to remove the sling and rest the arm on a pillow at your side or support the operative side with your other hand. You may allow the arm to dangle at your side. A physical therapy prescription will be sent electronically to begin in about 3 weeks. Prescriptions: Aspirin 81 mg take 1 daily to prevent a blood clot for 7 days Naproxen 250 mg take 1-2 every 12 hours with a meal as needed for moderate pain Oxycodone 5 mg take 1-2 every 4-6 hours as needed for severe pain You may use goyd-mei-yottyfb Tylenol (acetaminophen) as needed for mild pain. These pain medications may be taken all at once or in different combinations as needed. Also, recommend Colace (docusate) as a stool softener as surgery and pain medicine cause constipation. You may try syzk-vjt-tlxeehj diphenhydramine (Benadryl) 25-50 mg nightly as a sleep aid Dressings: Remove shoulder bandage after 3 days. Leave the sticky Steri-Strips in place until they fall off or remove them after you shower. Cover the incisions with Band-Aids or leave them open to air. You may shower after 5 days. Follow-up: 10-[address] Huerta You may take off the leg compression stockings this evening at home. You may also leave them on a few days longer if you have a history of leg swelling or edema. Let us know right away if you develop any redness, drainage, fevers, chest pain, or trouble breathing. Do not drink alcohol or drive for at least 24 hours after anesthesia. Please call the office during business hours with any questions or concerns. Discharge Orders Discharge Orders: Discharge Order (Routine); Ordered 06/18/23 Ordered By: Yordy Huerta DS: Diagnosis Discharge Diagnosis (1) Tendonitis of long head of biceps brachii of right shoulder: Status: Acute (2) Arthritis of right acromioclavicular joint: Status: Acute (3) Rotator cuff tear, right: Status: Acute (4) Arthritis of right glenohumeral joint: Status: Acute
--- NOTE | 2023-06-18 07:06 | ROE_ITS ---
Date of service: 06/18/23 Time of Service: 10:00 Operative Note Operative Note DATE OF PROCEDURE: 06/18/23 PRE-OP DIAGNOSIS: Right: 1. Rotator cuff tear 2. LHB tendinopathy 3. Bursitis 4. AC Joint arthritis POST-OP DIAGNOSIS: same PROCEDURE: Right: 1. Rotator cuff repair, CPT# 76789. This involved repair of thes supraspinatus using anchors and sutures to reattach the rotator cuff back to the footprint of the greater tuberosity. 2. Arthroscopic biceps tenodesis, CPT# 09003. This involved arthroscopically suturing and reattaching the long head of the biceps tendon to the proximal h umerus at the superior margin of the bicipital groove with a screw at the correct tension. 3. Extensive debridement, CPT# 20367. This involved using arthroscopic hand instruments, power instruments, and radiofrequency instruments to release the long head of the biceps tendon and debride areas of anterior and posterior labral tearing, synovitis, chondromalacia about the anteriore glenoid, and parti al articular subscapularis tearing working within the glenohumeral joint anteriorly, superiorly and posteriorly. 4. Arthroscopic distal clavicle excision, CPT# 72701. This involved arthroscopically exposing the underside of the acromioclavicular joint, smoothing out bone spurs, and removing a few millimeters the distal clavicle so there was no bone left engaging the acromion. 5. Subacromial decompression with partial acromioplasty, CPT# 18337. This involved using arthroscopic power instruments and a radiofrequency wand to complete a bursectomy and smooth the undersurface of the acromion. The multimedia assistant was medically required in order to help assist in techniques above, which require positioning the arm, holding the arthroscope, and manipulating multiple instruments and sutures at the same time. This cannot be done without the help of an experienced multimedia assistant. SURGEON: Yordy Huerta [employer] ASSEMBLER: Em Ariza ANESTHESIA TYPE: General LMA/ETT and Primary Nerve Block Refer to Anesthesia Record ESTIMATED BLOOD LOSS: 10 PATHOLOGY: none sent COMPLICATIONS: None Patient was transported to: PACU Patient's condition: stable Implants: Arthrex: 4.75mm SwiveLocks x 5 Indications: The patient was diagnosed with the above conditions and appropriately indicated for surgical intervention. Please see complete medical record for details. Findings: Exam under anesthesia: Full range of motion, no instability Glenohumeral joint: Moderate anterior posterior synovitis with moderate anterior and posterior labral fraying and tearing. SLAP tear at biceps tendon anchor. Biceps tendon otherwise uninjured. Subscapularis and limited upper lateral margin partial tearing. Majority lesser tuberosity still well covered. Mild to moderate anterior central glenoid chondromalacia with some loose cartilage flaps. Obvious full-thickness retracted supraspinatus rotator cuff tear. Intact articular infraspinatus. Moderate bicipital groove area humeral head chondromalacia. Subacromial space: Moderate bursitis, somewhat diminutive subacromial space, moderately impinging distal clavicle acromion especially inferiorly. Retracted and scarred supraspinatus, limited anterior supraspinatus tissue available for repair with significant limited excursion. More moderate excursion and reasonable tissue posteriorly. Relatively intact infraspinatus wrapping around. Procedure Description: In the operating room, general anesthesia was induced. Bilateral shoulders were examined. The patient was positioned in the beachchair position. All bony prominences were well-padded. Preoperative antibiotics were administered. The shoulder was prepped and draped in the usual sterile fashion. The correct patient, procedure, and side of the procedure were all verified prior to incisio n. Starting through the posterior portal a standard complete diagnostic arthroscopy was performed of the glenohumeral joint including inspection of the long head of the biceps, anterior and superior labrum, subscapularis tendon, supraspinatus and infraspinatus tendons, and axillary recess. The glenoid and humeral head cartilage as well as the posterior labrum were inspected from an anterior view ing portal. Significant findings and interventions noted above. Rigid cannula was inserted anteriorly. A passport cannula was inserted through the full-thickness rotator cuff tear at the superior anterior lateral site. An all-arthroscopic suprapectoral biceps tenodesis was performed through an anterior portal using a Loop N Tack method with a SutureTape FiberLink cinched around and through the tendon. The biceps was tenotomized from the labrum and fixated with a suture anchor at the superior margin of the bicipital groove near the upper lateral subscapularis for potential repair. The upper lateral subscap was debrided and did not demonstrate the need for any additional repairing. The additional knotless repair suture from the anchor was then shuttled around the biceps tendon stump and back through the anchor knotless mechanism adding additional security to the tenodesis fixation Starting through the posterior portal, the arthroscope was directed into the subacromial space. A lateral 50 yard line lateral portal was created. A combination of power instruments and a radiofrequency ablator were used to debride bursitis anteriorly, posteriorly, and laterally as well as expose and smooth bone spurring on the undersurface of the acromion. The coracoacromial ligament was partially released. The bursectomy was completed viewing laterally and working from posteriorly and the rotator cuff was thoroughly inspected with findings noted above. The anterior portal was redirected towards the undersurface of the AC joint. A shaver and electrocautery device were used to clear soft tissue from the undersurface of the AC joint. The distalmost few millimeters of the distal clavicle and adjacent acromion were removed and smoothed. Care was taken to alternate between working through the anterior portal and viewing through the anterior portal to ensure that proper amount of bone was removed and there was no engaging bone left behind especially superiorly. The Mely cannula was inserted laterally, another passport at the posterior superior lateral portal. The supers rotator cuff tear was thoroughly inspected and arm position optimized for reduction and repair. The supraspinatus tear was complete with essentially bald exposed greater tuberosity with probably some remnant tissue far laterally that had a chronic fibrinous appearance. The mechanical shaver and various hand rasp were used to thoroughly debride and prepare the greater tuberosity to optimize bone and tendon healing. The supraspinatus tendon centrally and anteriorly had very limited excursion and t hin poor tissue quality. Traction and liberator elevators were used to try to achieve better repair however the limited tissue did not really cover the anterior footprint without undue tension. The footprint was medialized a few millimeters anteriorly to centrally. The posterior tendon was thicker and had moderate excursion and coverage over the greater tuberosity. The reduction was then determined to be somewhat better for coverage from posterior to anterior and medial to lateral accounting for the tissue deficiency. FiberTape's were loaded on SwiveLock anchors which were placed at the medial anterior and posterior margins. The fiber tapes were then sequentially shuttled through the appropriate levels of the supraspinatus using the self retrieving suture passer. Adjusted as needed to account for the planned reduction and incorporating more tissue from posterior to achieve medial to lateral footprint coverage. An additional suture tape FiberLink in cinch mode was placed centrally. A fiber tape from each medial anchor was retrieved and then these repair sutures were secured to an anterior lateral row anchor. The remaining tapes were then retrieved and secured to a posterior lateral anchor. There is as expected moderately good tissue reduction and compression and coverage posteriorly. Centrally to anteriorly was less coverage. To the rotator cuff did reach and cover the prepared footprint even anteriorly over the majority of the anterior lateral greater tuberosity was uncovered. The repair was stable through probing and range of motion. The shoulder was drained of arthroscopic fluid. All portal sites were copiously irrigated. These incisions were closed using 3-0 Monocryl in a buried fashion and then covered with Mastisol, Steri-Strips, Xeroform, dry gauze, and ABDs. The dressings were covered and secured with Medipore tape. The operative extremity was placed into a sling for immobilization. The patient awoke from anesthesia without complication and was transferred to the recovery room in a stable condition.
--- NOTE | 2023-06-18 08:06 | W.ANESPRE ---
General Info Date of Service Date Performed: 06/18/23 Height: 5 ft 10 in Weight: 138.4 kg Body Mass Index (BMI): 43.7 Surgical Procedure: Operation Date: 06/18/23 09:25 Proposed Procedure Side Surgeon p Shoulder Rotator Cuff Arthroscopic w/Extensive Debridement, Biceps Tenodesis, Subacromial Decompression, Distal Clavicle Excision Right Yordy Huerta MD Meds Allergies and Home Medications Allergies Allergy/AdvReac Type Severity Reaction Status Date / Time No Known Allergies Allergy Verified 06/17/23 08:57 Home Medication Medication Instructions Recorded fluticasone propionate 50 2 spray intranasal DAILY 12/31/21 mcg/actuation nasal spray,suspension (Flonase Allergy Relief) acetaminophen 500 mg tablet 1,000 mg PO Q8H PRN pain #90 tabs 08/25/22 ibuprofen 600 mg tablet 600 mg PO TID PRN pain #60 tabs 08/25/22 amlodipine 10 mg tablet 10 mg PO DAILY #90 tabs 10/09/22 losartan 100 mg tablet 100 mg PO DAILY #90 tabs 11/04/22 simvastatin 40 mg tablet 40 mg PO HS #90 tabs 12/03/22 metoprolol succinate 100 mg 100 mg PO DAILY #90 tabs 02/11/23 tablet,extended release 24 hr metformin 1,000 mg tablet 1,000 mg PO BID #180 tabs 03/22/23 triamcinolone acetonide 0.5 % 1 applic topical BID #15 grams 04/19/23 topical cream empagliflozin 10 mg tablet 10 mg PO DAILY #90 tabs 06/16/23 (Jardiance) spironolactone 50 mg tablet 50 mg PO DAILY 06/18/23 Current Visit Medications: Current Medications Generic Name Dose Route Start Last Admin Trade Name Freq PRN Reason Stop Dose Admin Ringer's Solution 1,000 mls @ 30 mls/hr 06/18/23 06:00 IV 07/17/23 23:59 INFUSION [facility] Cefazolin Sodium 3,000 mg/ 100 mls @ 200 mls/hr 06/18/23 06:00 Sodium Chloride IVPB 06/18/23 16:00 PREOP [facility] IV Miscellaneous Supplies 1 each 06/18/23 06:00 Iv Access IV 07/17/23 23:59 DIRECTED GENE Oxycodone HCl 0 mg 06/18/23 07:07 Oxycodone 5 Mg Tab PO 07/18/23 07:06 Q3H PRN PRN Pain Sodium Chloride 0 ml 06/18/23 06:00 Normal Saline Flush 10 Ml Syr IV 07/17/23 23:59 PRN PRN Sodium Chloride 0 ml 06/18/23 06:00 Normal Saline 10 Ml Vial IJ 07/17/23 23:59 DIRECTED PRN Sterile Water 0 ml 06/18/23 06:00 Water,Injection,Sterile 10 Ml Vial IJ 07/17/23 23:59 DIRECTED PRN PFSH Active Problems Active Problems: Problem Status Onset Code Sleep apnea G47.30 Essential hypertension I10 Hyperlipemia E78.5 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 Obesity E66.9 Hypokalemia E87.6 Depression F32.A Colon polyp K63.5 Type 2 diabetes mellitus with diabetic nephropathy E11.21 Right shoulder pain M25.511 Dysfunction of right rotator cuff M67.911 History of total left knee replacement (TKR) 02/18/22 Z96.652 Heart murmur R01.1 Pericardial effusion I31.3 Lower extremity edema R60.0 Painful total knee replacement, left T84.84XA, Z96.652 Arthrofibrosis of total knee arthroplasty T84.82XA Status post arthroscopy of left knee 08/25/22 Z98.890 Bilateral shoulder pain M25.511, M25.512 Fatigue R53.83 Osteoarthritis of bilateral glenohumeral joints M19.011, M19.012 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 Tubular adenoma ~01/15/23 D36.9 Arthritis of right glenohumeral joint M19.011 Rotator cuff tear, right M75.101 Arthritis of right acromioclavicular joint M19.011 Tendonitis of long head of biceps brachii of right shoulder M75.21 Medical History Medical History History of colon polyps Medical History Comments:: - 4 pins in neck c4-c6 - front tooth missing Surgical History Surgical History (Updated 06/18/23 @ 07:37 by Laura Miller) H/O arthroscopy of left knee approx 07/30 H/O discectomy (~02/08/18) c5-6 History of colonoscopy History of open reduction and internal fixation (ORIF) procedure (~11/08/84) r ankle fx History of orthopedic surgery (~1989) right ankle Hx of total knee replacement left Status post colonoscopy with polypectomy (~01/15/23) Tobacco Smoking/Tobacco Use Status: Former Tobacco Use Passive smoking exposure: Yes Second hand exposure: Yes Alcohol Alcohol Intake: current Alcohol intake frequency: holidays/special occasions only Alcohol type: beer Substance Use Substance use type: does not use Vital Signs and Lab Results Vital Signs Most Recent Vital Signs in EMR: Most Recent Vital Signs Temp Pulse Resp BP Pulse Ox 36.7 C 83 20 165/74 H 98 06/18/23 07:20 06/18/23 07:20 06/18/23 07:20 06/18/23 07:20 06/18/23 07:20 Point of Care Results Point of Care Results: blood sugar 212 Lab Results Blood Type / Crossmatch: No Data to Display Complete Blood Count: No Data to Display Complete Metabolic Panel: Hemoglobin A1c 7.8 % (4.5-5.7) H 06/02/23 11:48 Liver Function Panel: No Data to Display Coagulation Panel: No Data to Display Cardiac Panel: No Data to Display Arterial Blood Gas: No Data to Display Venous Blood Gas: No Data to Display Pancreas Panel: No Data to Display Thyroid Panel: No Data to Display Infectious Disease: No Data to Display Blood Cultures: No Data to Display Toxicology Panel: No Data to Display Imaging and Studies Imaging and Studies Study information below may be from another EMR and interpreted by another provider. Please see original notes in EMR for more complete details. Echocardiogram Summary: Date of Exam: 07/08/22Sex: M Admission Date: 07/08/22 : 1965 Age: 56 APPROVED REPORT EXAM: Comprehensive 2D, Doppler, and color-flow Echocardiogram Patient Location: Out-Patient Territory Business Manager: Sonia Hadley RDCS (AE) Indications: Pericardial effusion, sleep apnea, murmur Other Information Study Quality: Adequate Conclusion Normal left ventricular wall thickness and chamber size. Estimated ejection fraction is 60%. Wall motion is normal Normal right ventricular size and systolic function Both atria are normal in size There is no structural or hemodynamically significant valvular disease Estimated right ventricular systolic pressure is 43 mmHg Moderate circumferential pericardial effusion, no evidence of tamponade Anesthesia Assessment and Plan Anesthesia History Personal History: No History of Anesthesia Complications Family History: No Family History of Anesthesia Complications Exercise Tolerance Exercise Tolerance: Metabolic Equivalents>4 Pertinent Negatives Pertinent Negatives: No Symptoms of GERD, No Major Cardiovascular Symptoms or Complaints, No Major Pulmonary Symptoms or Complaints and No History of CVA/TIA Cardiac & Pulmonary Exam Cardiac Exam: Normal S1/S2 Heart Sounds Pulmonary Exam: Clear Bilateral Breath Sounds Implantable Cardiac Device Does patient have a Pacemaker or an ICD?: No Airway Exam Known Difficult Airway: No Mallampati Class: 2 Mouth Opening: Normal (> 3cm) Thyromental Distance: Greater than 3 cm Neck Range of Motion: Limited ROM and History of Cervical Fusion Neck Circumference: Thick Teeth Condition: Generalized Poor Dentition and Loose or Chipped (left front tooth broken to base) ASA Classification ASA Score: ASA 3 Emergency Case?: No NPO Status NPO Status: NPO Clears >2 hours, Solids >8 hours Anesthesia Plan Resuscitation Status: Full Code Anesthesia Technique: General Anesthesia Airway Planned: Endotracheal Tube Pain Management: Surgeon and patient request nerve block Monitors Used: Standard Monitors
[2023-06-18] MEDS: Lactated Ringers 1,000 ML 30 ML IV (08:15)
--- NOTE | 2023-06-18 09:15 | W.ANESNERVE ---
Nerve Block Single Injection Procedure Date and Time Date Performed: 06/18/23 Procedure Start: 08:30 Location Where Procedure Performed Procedure Location: Day Surgery Unit Reason Performed: Postoperative Analgesia Requesting Provider: Yordy Huerta Timeout Performed Timeout Performed: Yes Monitoring Used ECG, Blood Pressure, SpO2 and See EMR for corresponding vital signs Sterility Sterility: Hand Hygiene, Surgical Cap, Surgical Mask, Sterile Gloves and Chlorhexidine Sedation Given During Procedure Sedation Given (Indicate Dose Given): Versed IV Dose:: 2 mg Patient Mental Status Patient Mental Status: Sedate with meaningful communication Nerve Block 1st Nerve Block: Laterality: Right Block Type: Interscalene Ultrasound Image Saved?: Yes Needle / Catheter Used: 100mm SonoPlex II Local Anesthetic Bolus (Indicate Dose Given): Lidocaine used for local infiltration of skin, Injected in 3-5ml increments after negative blood aspiration, Bupivacaine 0.5% Dose:: 10 ml and Exparel Dose:: 10 ml Additives (Indicate Dose Given): None Ultrasound: Sterile probe cover and gel used Nerve Stimulator: Supplement to Ultrasound use and Expected parasthesia or motor response elicited (needle withdrawn slightly until twitch resolved at 0.5 mA, then injected) Paresthesia: None Procedure Tolerated: No Complications and Patient tolerated well Procedure Outcome: Successful Performed By: Shannon Jolly
[2023-06-18] MEDS: ceFAZolin 3,000 MG in Normal Saline 100 ML 200 MG IVPB (09:35)
[2023-06-18] MEDS: EPINEPHrine 30 MG/30 ML VIAL (11:02)
--- NOTE | 2023-06-18 13:05 | W.ANESPOSTOP ---
Postoperative Evaluation Date, Time and Location Date Performed: 06/18/23 Time Performed: 13:20 Patient Location: Day Surgery Unit Vital Signs Most Recent Imported Vital Signs: Most Recent Vital Signs Temp Pulse Resp BP Pulse Ox 36.5 C 78 17 139/64 98 06/18/23 12:54 06/18/23 12:54 06/18/23 12:54 06/18/23 12:54 06/18/23 12:54 Pain Score Most Recent Pain Score: Most Recent Pain Score Pain Level 0 06/18/23 12:54 Assessment Mental Status: Awake (Alert & Oriented to Patient Baseline) Airway and Respiratory Function: Patent airway with normal (patient baseline) respiratory exam Cardiovascular Function: Hemodynamically Stable Hydration Status: Adequately Hydrated Nausea & Vomiting: No Nausea or Vomiting Pain: Pt. Denies Any Pain Peripheral Nerve Block: Regional nerve block not resolved at time of post operative discharge
== END 2023-06-18 15:00 | disposition home or self-care (01) ==
PROVIDERS: PCP Nurse Practitioner Family; Visit Provider Student in an Organized Health Care Education/Training Program
PROC: (CPT 29827; principal; 2023-06-18 09:15)
DX: M75.21 Bicipital tendinitis, right shoulder (principal); M19.011 Primary osteoarthritis, right shoulder; M75.101 Unspecified rotator cuff tear or rupture of right shoulder, not specified as traumatic; M75.51 Bursitis of right shoulder
CPT/HCPCS: 29827; 29828; 29826; 29824; 29823; 76942; J0690; J1100; J1885; J2250; J2371; J2405; J2704

== ENCOUNTER → 2023-06-29 10:36 | Outpatient (BNVA) | payer OTHER, SELFPAY | PROVIDERS: PCP Nurse Practitioner Family; Visit Provider Student in an Organized Health Care Education/Training Program | DX: Z47.89 Encounter for other orthopedic aftercare (principal); M75.101 Unspecified rotator cuff tear or rupture of right shoulder, not specified as traumatic ==

== ENCOUNTER → 2023-08-17 09:40 | Outpatient (BNVA) | payer OTHER, SELFPAY | PROVIDERS: PCP Nurse Practitioner Family; Referring Provider Nurse Practitioner Family; Visit Provider Student in an Organized Health Care Education/Training Program | DX: Z47.89 Encounter for other orthopedic aftercare (principal); M75.21 Bicipital tendinitis, right shoulder ==

== ENCOUNTER → 2023-09-23 10:31 | Outpatient (BNVA) | payer OTHER, SELFPAY | PROVIDERS: PCP Nurse Practitioner Family; Referring Provider Nurse Practitioner Family; Visit Provider Physical Therapy Assistant | DX: Z12.11 Encounter for screening for malignant neoplasm of colon (principal); Z86.010 Personal history of colon polyps ==

== ENCOUNTER 2023-09-28 03:00 | Outpatient (CLI) | payer OTHER, SELFPAY ==
[2023-09-28 12:30] LABS: CREATININE 1.1 mg/dL (0.70-1.30); Calculated LDL 47 mg/dL (<100); Cholesterol 114 mg/dL (<200); Estimated GFR 76.85 (mL/min/1.73m2); HDL Cholesterol 32 mg/dL (40-60); Triglyceride 178 mg/dL (<150)
== END 2023-09-28 03:01 | disposition home or self-care (01) ==
LOC: LOS 03:00
PROVIDERS: PCP Nurse Practitioner Family; Visit Provider Nurse Practitioner Family
DX: E78.5 Hyperlipidemia, unspecified (principal); I10 Essential (primary) hypertension
CPT/HCPCS: 36415; 80061; 82565; 84132

== ENCOUNTER → 2023-10-12 09:49 | Outpatient (BNVA) | payer OTHER, SELFPAY | PROVIDERS: PCP Nurse Practitioner Family; Referring Provider Nurse Practitioner Family; Visit Provider Student in an Organized Health Care Education/Training Program | DX: M75.101 Unspecified rotator cuff tear or rupture of right shoulder, not specified as traumatic (principal); M19.011 Primary osteoarthritis, right shoulder; M75.21 Bicipital tendinitis, right shoulder | CPT/HCPCS: 99213 ==

== ENCOUNTER 2023-10-14 07:26 | Day surgery (SDC) | payer OTHER, SELFPAY ==
--- NOTE | 2023-10-13 21:05 | W.PM.DSUDISC ---
Date of service: 10/14/23 Time of Service: 10:54 Discharge Plan Disposition Patient Disposition: Home Condition: Good Discharge Details Reason For Visit: screening colonoscopy Attending Provider: Cirilo Tay Primary Care Provider: Mikhail Elizabeth Home Meds and New Rx's Prescriptions: Continued simvastatin 40 mg tablet 40 mg PO HS Qty: 90 3RF metformin 1,000 mg tablet 1,000 mg PO BID Qty: 180 3RF semaglutide 0.25 mg or 0.5 mg (2 mg/3 mL) pen injector 0.25 mg subcut QWEEK Qty: 3 0RF Rx Instructions: for 4 weeks losartan 100 mg tablet 100 mg PO DAILY Qty: 90 3RF metoprolol succinate 100 mg tablet extended release 24 hr 100 mg PO DAILY Qty: 90 3RF triamcinolone acetonide 0.5 % cream 1 applic topical BID Qty: 15 2RF Jardiance 10 mg tablet 10 mg PO DAILY Qty: 90 3RF Patient Comments: 06/18/23 Pt reports he has not started this yet. fluticasone propionate [Flonase Allergy Relief] 50 mcg/actuation spray,suspension 2 spray intranasal DAILY Rx Instructions: administer into each nostril amlodipine 10 mg tablet 10 mg PO DAILY Qty: 90 3RF acetaminophen 500 mg tablet 1,000 mg PO Q8H PRN Qty: 90 0RF Rx Instructions: Take two tablets up to every 8 hours as needed for pain spironolactone 50 mg tablet 50 mg PO DAILY Patient Comments: TAKE 1 TABLET (50MG) BY MOUTH DAILY naproxen 250 mg tablet 250 - 500 mg PO BID PRNQty: 40 0RF Rx Instructions: take with a meal Discontinued polyethylene glycol 3350 17 gram/dose powder 17 g PO DAILY Qty: 238 0RF bisacodyl [Dulcolax (bisacodyl)] 5 mg tablet,delayed release (DR/EC) 5 mg PO ONCE Qty: 4 0RF Discharge Instructions Additional Instructions: Diego, you did great during the colonoscopy. I hope it was comfortable for you. I did find a total of 4 more polyps. These were all much smaller than your previous colonoscopy. I was able to remove these all today without any issues. Like in the past, I will send these off for analysis to determine the nature of the polyps. Once I have that information, we will make a plan together for your next colonoscopy. If you have any questions in the meantime, please do not hesitate to ask. 1. If tolerated, consume a soft, low fiber diet for 1-2 days. 2[address] Do not drive, drink alcohol, operate machinery, make critical decisions, or do activities that require coordination or balance for 24 hours. 3. Because air was put into your colon during the procedure, expelling air from your rectum (passing gas or farting) is normal. 4. You may not have a bowel movement for 1-3 days because of the colonoscopy prep. This is normal. 5. Go directly to the emergency room if you notice any of the following: Develop chills (warm to touch), or if you have a thermometer and your temperature is above 101 Difficulty breathing or difficultly swallowing Persistent vomiting Severe abdominal pain, other than gas cramps Severe chest pain Black, tarry stools Any bleeding ? exceeding one tablespoon 6. Call your physician if the site where your intravenous was started becomes red, swollen, painful, and warm to touch. 7. Your physician has reviewed your pre-procedure medications. Please continue to take those medications as previously ordered. You will be given specific information/education regarding any changes to your medications before leaving. Activity:: Activity as Tolerated Diet:: As Tolerated Discharge Orders Discharge Orders: Discharge Order (Routine); Ordered 10/13/23 Ordered By: Cirilo Tay DS: Diagnosis Discharge Diagnosis (1) Screen for colon cancer: Status: Acute Asessment and Plan: I will follow-up on polypectomy results
--- NOTE | 2023-10-13 21:07 | COLE_ITS ---
Date of service: 10/14/23 Time of Service: 10:56 Colonoscopy Report Date of procedure: 10/14/23 Pre-op diagnosis general: screening colonoscopy Post-op diagnosis procedure note: other (Colon polyps) Procedure: Colonoscopy with polypectomy Surgeon: Cirilo Tay Anesthesia Type: General:No Airway Estimated blood loss (mL): 10 Pathology: other (0.25 cm polyp at 95 cm, 0.25 cm polyp at 85 cm x 2, 0.75 cm polyp at 80 cm) Complications: None Disposition: same day Indications: Diego is 58 years old and he has a history of adenomatous polyps with high grade dysplasia. He is here for his net screening colonoscopy Prep: Miralax/Dulcolax Procedure Start Time: 10:05 Procedure End Time: 10:41 Retraction Time: 29 Findings: 0.25 cm polyp at 95 cm, 0.25 cm polyp at 85 cm x 2, 0.75 cm polyp at 80 cm Procedure Description: We assisted Diego into the left lateral decubitus position, and anesthesia was initiated.? Perineum and skin were normal, as was the anal verge.? Digital rectal exam was normal..? Next, I advanced a colonoscope into the rectal vault.? I performed retroflexion. Using insufflation, I then advanced the colonoscope beyond the rectal folds and into the sigmoid colon before advancing towards the cecum.? The scope was noted to be in the cecum by identification of the ileocecal valve and appendiceal orifice.? I then began withdrawing the colonoscope. I found a 0.25 cm flat polyp at 95 cm from the anus. This was removed with cold forceps and minimal bleeding. Similarly, I found 2 more polyps at 85 cm from the anus. Each of these was less than 0.25 cm. These were both flat. I removed these both with cold forceps as well. I also found a polyp at 80 cm. This was around 0.75 cm in its largest dimension, and it was slightly more pedunculated. I removed this with cold snare polypectomy. During his previous colonoscopy, a large dysplastic polyp was removed around 65 cm from the anus. Several passes were made from about 55 to about 70 cm carefully examining the area. I did not see any signs of any recurrent pathology in this area. Once the scope was withdrawn to the level of the rectum, great care was taken to examine portions of the rectal folds.? Finally, the scope was withdrawn and the patient was brought to the same-day surgery recovery unit as the anesthetic wore off. ?The findings and instructions were shared with the patient prior to discharge. [place] Bowel Prep [place] Bowel Prep Right Colon: 3 Left Colon: 2 Transverse Colon: 3 Total Score: 8
[2023-10-14 08:40] VITALS: BP 177/84; PULSE 87; RESP 16; TEMP 36.6; O2SAT 96
[2023-10-14] MEDS: Lactated Ringers 1,000 ML 80 ML IV (09:05)
--- NOTE | 2023-10-14 09:06 | W.ANESPRE ---
General Info Date of Service Date Performed: 10/14/23 Height: 5 ft 10 in Weight: 136.7 kg Body Mass Index (BMI): 43.2 Surgical Procedure: Operation Date: 10/14/23 09:50 Proposed Procedure Side Surgeon theresa Tay MD Meds Allergies and Home Medications Allergies Allergy/AdvReac Type Severity Reaction Status Date / Time No Known Allergies Allergy Verified 10/14/23 08:39 Home Medication Medication Instructions Recorded fluticasone propionate 50 2 spray intranasal DAILY 12/31/21 mcg/actuation nasal spray,suspension (Flonase Allergy Relief) acetaminophen 500 mg tablet 1,000 mg (2 x 500 mg) PO Q8H PRN 08/25/22 pain #90 tabs amlodipine 10 mg tablet 10 mg PO DAILY #90 tabs 10/09/22 losartan 100 mg tablet 100 mg PO DAILY #90 tabs 11/04/22 simvastatin 40 mg tablet 40 mg PO HS #90 tabs 12/03/22 metoprolol succinate 100 mg 100 mg PO DAILY #90 tabs 02/11/23 tablet,extended release 24 hr metformin 1,000 mg tablet 1,000 mg PO BID #180 tabs 03/22/23 triamcinolone acetonide 0.5 % 1 applic topical BID #15 grams 04/19/23 topical cream empagliflozin 10 mg tablet 10 mg PO DAILY #90 tabs 06/16/23 (Jardiance) naproxen 250 mg tablet 250 - 500 mg (1 - 2 x 250 mg) PO 06/18/23 BID PRN #40 tabs spironolactone 50 mg tablet 50 mg PO DAILY 06/18/23 semaglutide 0.25 mg or 0.5 mg (2 0.25 mg (0.368 mL) subcut QWEEK #3 09/22/23 mg/3 mL) subcutaneous pen injector mL Current Visit Medications: Current Medications Generic Name Dose Route Start Last Admin Trade Name Freq PRN Reason Stop Dose Admin Hyoscyamine Sulfate 0.125 mg 10/13/23 21:08 Hyoscyamine 0.125 Mg Sl/Oral/Chew SL 11/12/23 21:07 DIRECTED PRN Ringer's Solution 1,000 mls @ 80 mls/hr 10/14/23 06:00 IV 11/12/23 23:59 INFUSION GENE IV Miscellaneous Supplies 1 each 10/14/23 06:00 Iv Access IV 11/12/23 23:59 DIRECTED GENE Ondansetron HCl 4 mg 10/13/23 21:08 Ondansetron 4 Mg/2 Ml Vial IVP 11/12/23 21:07 Q4H PRN PRN Nausea / Vomiting Sodium Chloride 0 ml 10/14/23 06:00 Normal Saline Flush 10 Ml Syr IV 11/12/23 23:59 PRN PRN Sodium Chloride 0 ml 10/14/23 06:00 Normal Saline 10 Ml Vial IJ 11/12/23 23:59 DIRECTED PRN Sterile Water 0 ml 10/14/23 06:00 Water,Injection,Sterile 10 Ml Vial IJ 11/12/23 23:59 DIRECTED PRN PFSH Active Problems Active Problems: Problem Status Onset Code Screen for colon cancer Z12.11 Tendonitis of long head of biceps brachii of right shoulder M75.21 Arthritis of right acromioclavicular joint M19.011 Rotator cuff tear, right M75.101 Tubular adenoma ~01/15/23 D36.9 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 Osteoarthritis of bilateral glenohumeral joints M19.011, M19.012 Fatigue R53.83 Bilateral shoulder pain M25.511, M25.512 Status post arthroscopy of left knee 08/25/22 Z98.890 Arthrofibrosis of total knee arthroplasty T84.82XA Painful total knee replacement, left T84.84XA, Z96.652 Lower extremity edema R60.0 Pericardial effusion I31.3 Heart murmur R01.1 History of total left knee replacement (TKR) 02/18/22 Z96.652 Dysfunction of right rotator cuff M67.911 Right shoulder pain M25.511 Type 2 diabetes mellitus with diabetic nephropathy E11.21 Colon polyp K63.5 Depression F32.A Hypokalemia E87.6 Obesity E66.9 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 Hyperlipemia E78.5 Essential hypertension I10 Sleep apnea G47.30 Medical History Medical History History of colon polyps Medical History Comments:: - 4 pins in neck c4-c6 - front tooth missing Surgical History Surgical History Hx of rotator cuff surgery right 06/20/23 H/O arthroscopy of left knee approx 07/30 Status post colonoscopy with polypectomy (~01/15/23) Hx of total knee replacement left History of colonoscopy History of open reduction and internal fixation (ORIF) procedure (~11/08/84) r ankle fx H/O discectomy (~02/08/18) c5-6 History of orthopedic surgery (~1989) right ankle Tobacco Smoking/Tobacco Use Status: Current-Occasional Tobacco Type: cigars Passive smoking exposure: No Second hand exposure: Yes Alcohol Alcohol Intake: current Alcohol intake frequency: a few times a month Alcohol type: beer Substance Use Substance use type: does not use Vital Signs and Lab Results Vital Signs Most Recent Vital Signs in EMR: Most Recent Vital Signs Temp Pulse Resp BP Pulse Ox 36.6 C 87 16 177/84 H 96 10/14/23 08:40 10/14/23 08:40 10/14/23 08:40 10/14/23 08:40 10/14/23 08:40 Point of Care Results Point of Care Results: Finger Stick Blood Glucose 193 10/14/23 08:33 Lab Results Blood Type / Crossmatch: No Data to Display Complete Blood Count: No Data to Display Complete Metabolic Panel: Potassium 4.0 mmol/L (3.5-5.1) 09/28/23 09:32 Creatinine 1.1 mg/dL (0.70-1.30) 09/28/23 09:32 Est GFR (CKD-EPI 2020) 76.85 (mL/min/1.73m2) 09/28/23 09:32 Hemoglobin A1c 8.5 % (4.5-5.7) H 09/22/23 09:33 Liver Function Panel: No Data to Display Coagulation Panel: No Data to Display Cardiac Panel: No Data to Display Arterial Blood Gas: No Data to Display Venous Blood Gas: No Data to Display Pancreas Panel: No Data to Display Thyroid Panel: No Data to Display Infectious Disease: No Data to Display Blood Cultures: No Data to Display Toxicology Panel: No Data to Display Imaging and Studies Imaging and Studies Study information below may be from another EMR and interpreted by another provider. Please see original notes in EMR for more complete details. Echocardiogram Summary: Date of Exam: 07/08/22Sex: M Admission Date: 07/08/22 : 1965 Age: 56 APPROVED REPORT EXAM: Comprehensive 2D, Doppler, and color-flow Echocardiogram Patient Location: Out-Patient Classification And Treatment Director: Sonia Hadley RDCS (AE) Indications: Pericardial effusion, sleep apnea, murmur Other Information Study Quality: Adequate Conclusion Normal left ventricular wall thickness and chamber size. Estimated ejection fraction is 60%. Wall motion is normal Normal right ventricular size and systolic function Both atria are normal in size There is no structural or hemodynamically significant valvular disease Estimated right ventricular systolic pressure is 43 mmHg Moderate circumferential pericardial effusion, no evidence of tamponade Anesthesia Assessment and Plan Anesthesia History Personal History: No History of Anesthesia Complications Family History: No Family History of Anesthesia Complications and Other Exercise Tolerance Exercise Tolerance: Metabolic Equivalents>4 Cardiac & Pulmonary Exam Cardiac Exam: Normal S1/S2 Heart Sounds Pulmonary Exam: Clear Bilateral Breath Sounds Implantable Cardiac Device Does patient have a Pacemaker or an ICD?: No Airway Exam Known Difficult Airway: No Mallampati Class: 2 Mouth Opening: Normal (> 3cm) Thyromental Distance: Greater than 3 cm Neck Range of Motion: Limited ROM and History of Cervical Fusion Neck Circumference: Thick Teeth Condition: Generalized Poor Dentition and Loose or Chipped (left front tooth broken to base) ASA Classification ASA Score: ASA 3 Emergency Case?: No NPO Status NPO Status: NPO Clears >2 hours, Solids >8 hours Anesthesia Plan Resuscitation Status: Full Code Anesthesia Technique: General Anesthesia Airway Planned: Natural Airway Monitors Used: Standard Monitors Preoperative Comments:: GUSTAVO. Discussed may need to place airway
[2023-10-14 09:50] VITALS: BMI 43.2
--- NOTE | 2023-10-14 10:14 | BOWEL_PTH ---
PATIENT: Diego Cardoza JR LOC: [facility] U#:[id number] AGE/SX: 58/M ROOM: RE10/14/[address]: Cirilo Tay MD : 1965 BED: DIS: 10/14/2023 SPEC #: [id number] RECD: 10/14/23 12:41 STATUS: LAM RE #: [id number] DULCE: 10/14/23 10:[address]: Cirilo Tay DEPT: Surgical Specimen RECD BY: Silvana Griffin ENTERED: 10/14/23 12:42 SP TYPE: Bowel OTHR DR: Mikhail Elizabeth, [employer] Tissues: 1 - BIOPSY BOWEL 2 - BIOPSY BOWEL 3 - BIOPSY BOWEL Procedures: GROSS AND MICRO LEVEL 4 Comments: [id number]
[2023-10-14 10:50] VITALS: BP 140/74; PULSE 81; RESP 18; TEMP 36; O2SAT 97
--- NOTE | 2023-10-14 10:56 | W.ANESPOSTOP ---
Postoperative Evaluation Date, Time and Location Date Performed: 10/14/23 Time Performed: 10:56 Patient Location: Day Surgery Unit Vital Signs Most Recent Imported Vital Signs: Most Recent Vital Signs Temp Pulse Resp BP Pulse Ox 36 C L 81 18 140/74 97 10/14/23 10:50 10/14/23 10:50 10/14/23 10:50 10/14/23 10:50 10/14/23 10:50 Pain Score Most Recent Pain Score: Most Recent Pain Score Pain Level 0 10/14/23 08:40 Assessment Mental Status: Awake (Alert & Oriented to Patient Baseline) Airway and Respiratory Function: Patent airway with normal (patient baseline) respiratory exam Cardiovascular Function: Hemodynamically Stable Hydration Status: Adequately Hydrated Nausea & Vomiting: No Nausea or Vomiting Pain: Pt. Denies Any Pain Peripheral Nerve Block: Patient did not receive a nerve block
[2023-10-14 11:12] VITALS: BP 150/78; PULSE 75; RESP 16; TEMP 36; O2SAT 98
== END 2023-10-14 11:34 | disposition home or self-care (01) ==
LOC: SUR 07:27
PROVIDERS: PCP Nurse Practitioner Family; Visit Provider Surgery
PROC: 0DJD8ZZ Inspection of Lower Intestinal Tract, Via Natural or Artificial Opening Endoscopic (ICD-10-PCS; CPT 45378; principal; 2023-10-14 09:45)
DX: Z12.11 Encounter for screening for malignant neoplasm of colon (principal); Z86.010 Personal history of colon polyps; D12.3 Benign neoplasm of transverse colon; D12.4 Benign neoplasm of descending colon
CPT/HCPCS: 45385; 45380; 88305; J2704

== ENCOUNTER 2024-01-06 09:16 | Emergency (ER) | payer MEDICARE, SELFPAY ==
--- NOTE | 2024-01-06 09:15 | RT.EKG_ITS ---
APPROVED REPORT Exam: Resting ECG Reason for Exam: epigastric pain Patient Location: E HR:92 bpm ECG Measurements Heart Rate 92 AXIS IL 167 P 65 QRSd 92 QRS 63 QT 337 T -72 QTc 416 Conclusion Sinus rhythm 92 normal axis non specific t wave changes no stemi
[2024-01-06 09:24] VITALS: BP 154/86; PULSE 100; RESP 18; TEMP 36.4; O2SAT 98
[2024-01-06 09:45] LABS: Abs Immature Grans 0.19 10^3/uL (0.0-0.06); Absolute Eosinophil Count 0.92 10^3/uL (0.0-0.7); Absolute Lymphocyte Count 1.49 10^3/uL (1.2-3.4); Absolute Monocyte Count 1.18 10^3/uL (0.1-0.8); Basophils % 0.5; HCT 48.5 % (40.0-50.0); HGB 16.3 g/dL (13.5-17.5); Immature Grans % 1.2; Lymphocytes % 9.7; MCH 27.3 pg (27.0-33.0); MCHC 33.6 % (32.0-36.0); MCV 81 fL (80-95); MPV 8.2 fL (8.0-11.0); Monocytes % 7.7; Neutrophils % 74.9; Platelet Count 324 10^3/uL (130-400); RBC 5.97 10^6/uL (4.36-5.78); RDW-SD 40.8 fL; WBC 15.37 10^3/uL (4.4-10.8)
[2024-01-06 09:54] LABS: Absolute Basophil Count 0.08 10^3/uL (0.0-0.2); Absolute Neutrophil Count 11.51 10^3/uL (1.2-6.7)
[2024-01-06] MEDS: FAMOTIDINE 20 MG in Normal Saline 100 ML 400 MG IVPB (10:01)
[2024-01-06] MEDS: Normal Saline 1,000 ML 1000 ML IV (10:02)
[2024-01-06 10:03] LABS: ALT 17 U/L (16-63); AST 8 U/L (15-37); Albumin 3.7 g/dL (3.4-5.0); Alkaline Phosphatase 86 U/L (46-116); Anion Gap 12.2 mmol/L (3-11); BUN 15 mg/dL (7-18); Bilirubin, Total 0.9 mg/dL (0.2-1.0); CO2 23.8 mmol/L (21.0-32.0); Chloride 101 mmol/L (98-107); Estimated GFR 86.16 (mL/min/1.73m2); Glucose 160 mg/dL (74-106); Magnesium 1.8 mg/dL (1.8-2.4); Potassium 3.7 mmol/L (3.5-5.1); Sodium 137 mmol/L (136-145); Total Protein 7.4 g/dL (6.4-8.2); Troponin I < 50 ng/L (< or =60)
--- NOTE | 2024-01-06 10:04 | W.ED.GENAD ---
Discharge Plan Disposition Patient Disposition: Home Condition: Stable Discharge Details Clinical Impression: GERD with esophagitis, Pericardial effusion Primary Care Provider: Mikhail Elizabeth ED Provider: Sandy Valdovinos Home Meds and New Rx's Prescriptions: New pantoprazole 40 mg tablet,delayed release (DR/EC) 40 mg PO DAILY Qty: 20 0RF sucralfate [Carafate] 1 gram tablet 1 g PO BID Qty: 20 0RF No Action simvastatin 40 mg tablet 40 mg PO HS Qty: 90 3RF metformin 1,000 mg tablet 1,000 mg PO BID Qty: 180 3RF metoprolol succinate 100 mg tablet extended release 24 hr 100 mg PO DAILY Qty: 90 3RF triamcinolone acetonide 0.5 % cream 1 applic topical BID Qty: 15 2RF Jardiance 10 mg tablet 10 mg PO DAILY Qty: 90 3RF fluticasone propionate [Flonase Allergy Relief] 50 mcg/actuation spray,suspension 2 spray intranasal DAILY Rx Instructions: administer into each nostril amlodipine 10 mg tablet 10 mg PO DAILY Qty: 90 3RF losartan 100 mg tablet 100 mg PO DAILY Qty: 90 3RF semaglutide 2 mg/dose (8 mg/3 mL) pen injector 2 mg subcut QWEEK Qty: 9 3RF acetaminophen 500 mg tablet 1,000 mg PO Q8H PRN Qty: 90 0RF Rx Instructions: Take two tablets up to every 8 hours as needed for pain spironolactone 50 mg tablet 50 mg PO DAILY Patient Comments: TAKE 1 TABLET (50MG) BY MOUTH DAILY naproxen 250 mg tablet 250 - 500 mg PO BID PRNQty: 40 0RF Rx Instructions: take with a meal Discharge Instructions Additional Instructions: I recommend that you call your primary care provider to schedule a follow-up appointment for management of your GERD. Please take the omeprazole and Carafate prescribed. You may also wish to take [id number] chewable famotidine. Take this at least 6 hours after your pantoprazole. An endoscopy may be indicated to further evaluate this if symptoms persist despite treatment. Stay well-hydrated, drinking plenty of fluids throughout the day. Follow-up with cardiology for evaluation of your pericardial effusion. Return to emergency care if you develop new chest pain, shortness of breath, uncontrollable vomiting, severe abdominal pain, blood in stool or vomit, or if you are very worried and need to be rechecked again immediately Referrals: Mikhail Elizabeth NP [Primary Care Provider] - Massiel Harp MD [ [facility] STAFF PHYSICIAN] - [facility] General Date/Time Provider Initiated Documentation: 01/06/24 09:21. HPI Narrative: Diego is a 58-year-old male with history of HTN, HLD, T2DM treated with Jardiance and ozempic who presents to the emergency dept for evaluation of burning abdominal pain. He reports that he started with symptoms on Wednesday (5 days ago) with epigastric pain and burning that extends up his esophagus that is accompanied by burping. He says symptoms have persisted since onset. He was seen at [facility] on 01/04/2024, diagnosed with GERD, although a pericardial effusion and gallstones were noted on his CT scan. He has been prescribed pantoprazole, only took 1 dose yesterday but vomited after taking it. He reports that he has a longstanding history of normal stool in the morning, followed by diarrhea at night. Denies fever/chills, difficulty swallowing, blood in stool or emesis, change in urine output. Related Data Home Medications Medication Instructions Recorded Confirmed fluticasone propionate 50 2 spray intranasal DAILY 12/31/21 01/06/24 mcg/actuation nasal spray,suspension (Flonase Allergy Relief) acetaminophen 500 mg tablet 1,000 mg (2 x 500 mg) PO Q8H PRN 08/25/22 01/06/24 pain #90 tabs simvastatin 40 mg tablet 40 mg PO HS #90 tabs 12/03/22 01/06/24 metoprolol succinate 100 mg 100 mg PO DAILY #90 tabs 02/11/23 01/06/24 tablet,extended release 24 hr metformin 1,000 mg tablet 1,000 mg PO BID #180 tabs 03/22/23 01/06/24 triamcinolone acetonide 0.5 % 1 applic topical BID #15 grams 04/19/23 01/06/24 topical cream empagliflozin 10 mg tablet 10 mg PO DAILY #90 tabs 06/16/23 01/06/24 (Jardiance) naproxen 250 mg tablet 250 - 500 mg (1 - 2 x 250 mg) PO 06/18/23 01/06/24 BID PRN #40 tabs spironolactone 50 mg tablet 50 mg PO DAILY 06/18/23 01/06/24 amlodipine 10 mg tablet 10 mg PO DAILY #90 tabs 11/15/23 01/06/24 losartan 100 mg tablet 100 mg PO DAILY #90 tabs 12/01/23 01/06/24 semaglutide 2 mg/dose (8 mg/3 mL) 2 mg (0.75 mL) subcut QWEEK #9 mL 12/24/23 01/06/24 subcutaneous pen injector pantoprazole 40 mg tablet,delayed 40 mg PO DAILY #20 tabs 01/06/24 release sucralfate 1 gram tablet (Carafate) 1 g PO BID #20 tabs 01/06/24 Previous Rx's Medication Instructions Recorded acetaminophen 500 mg tablet 1,000 mg (2 x 500 mg) PO Q8H PRN 08/25/22 pain #90 tabs simvastatin 40 mg tablet 40 mg PO HS #90 tabs 12/03/22 metoprolol succinate 100 mg 100 mg PO DAILY #90 tabs 02/11/23 tablet,extended release 24 hr metformin 1,000 mg tablet 1,000 mg PO BID #180 tabs 03/22/23 triamcinolone acetonide 0.5 % 1 applic topical BID #15 grams 04/19/23 topical cream empagliflozin 10 mg tablet 10 mg PO DAILY #90 tabs 06/16/23 (Jardiance) naproxen 250 mg tablet 250 - 500 mg (1 - 2 x 250 mg) PO 06/18/23 BID PRN #40 tabs amlodipine 10 mg tablet 10 mg PO DAILY #90 tabs 11/15/23 losartan 100 mg tablet 100 mg PO DAILY #90 tabs 12/01/23 semaglutide 2 mg/dose (8 mg/3 mL) 2 mg (0.75 mL) subcut QWEEK #9 mL 12/24/23 subcutaneous pen injector pantoprazole 40 mg tablet,delayed 40 mg PO DAILY #20 tabs 01/06/24 release sucralfate 1 gram tablet (Carafate) 1 g PO BID #20 tabs 01/06/24 Allergies Allergy/AdvReac Type Severity Reaction Status Date / Time No Known Allergies Allergy Verified 01/06/24 09:26 General Stated Complaint: Abd Prob JUNIOR: 3 Review of Systems Narrative: see HPI Exam Const General: cooperative, healthy appearing and no acute distress HENMT Mouth: moist mucous membranes Cardio Rate: regular rate Rhythm: regular rhythm GI Inspection: normal to inspection Palpation: soft, no hernias, no masses, not rigid and tender (epigastrum and LUQ) Auscultation: normal bowel sounds Course Vital Signs Vital signs: Vital Signs Temperature 36.4 C L 01/06/24 09:24 Pulse 100 H 01/06/24 09:24 Respiratory Rate 18 01/06/24 09:24 Blood Pressure 154/86 H 01/06/24 09:24 Pulse Oximetry 98 01/06/24 09:24 Temperature 36.4 C L 01/06/24 09:24 Temperature Source Oral 01/06/24 09:24 Pulse 100 H 01/06/24 09:24 Respiratory Rate 18 01/06/24 09:24 Respiratory Effort Normal 01/06/24 09:44 Blood Pressure 154/86 H 01/06/24 09:24 Blood Pressure Position Sitting 01/06/24 09:24 Pulse Oximetry 98 01/06/24 09:24 Oxygen Delivery Method Room Air 01/06/24 09:44 Oxygen Flow Rate 0 01/06/24 09:24 Pain Level 8 01/06/24 09:24 Lab/Test Results Lab/Test Results: Laboratory Tests Range/Units 01/06/24 09:35 WBC (4.4-10.8) 10^3/uL 15.37 H RBC (4.36-5.78) 10^6/uL 5.97 H Hgb (13.5-17.5) g/dL 16.3 Hct (40.0-50.0) % 48.5 MCV (80-95) fL 81 MCH (27.0-33.0) pg 27.3 MCHC (32.0-36.0) % 33.6 RDW (11.8-14.1) % 14.0 Plt Count (130-400) 10^3/uL 324 MPV (8.0-11.0) fL 8.2 Immature Gran % 1.2 Neutrophils % 74.9 Lymphocytes % 9.7 Monocytes % 7.7 Eosinophils % 6.0 Basophils % 0.5 Nucleated RBC % (0.0-0.3) % 0.0 Absolute Neutrophils (1.2-6.7) 10^3/uL 11.51 H Absolute Lymphocytes (1.2-3.4) 10^3/uL 1.49 Absolute Monocytes (0.1-0.8) 10^3/uL 1.18 H Absolute Eosinophils (0.0-0.7) 10^3/uL 0.92 H Absolute Basophils (0.0-0.2) 10^3/uL 0.08 Sodium (136-145) mmol/L 137 Potassium (3.5-5.1) mmol/L 3.7 Chloride (98-107) mmol/L 101 Carbon Dioxide (21.0-32.0) mmol/L 23.8 Anion Gap (3-11) mmol/L 12.2 H BUN (7-18) mg/dL 15 Creatinine (0.70-1.30) mg/dL 1.0 Est GFR (CKD-EPI 2020) (mL/min/1.73m2) 86.16 Glucose (74-106) mg/dL 160 H Calcium (8.5-10.1) mg/dL 9.0 Magnesium (1.8-2.4) mg/dL 1.8 Total Bilirubin (0.2-1.0) mg/dL 0.9 AST (15-37) U/L 8 L ALT (16-63) U/L 17 Alkaline Phosphatase (46-116) U/L 86 Troponin I (< or =60) ng/L < 50 Total Protein (6.4-8.2) g/dL 7.4 Albumin (3.4-5.0) g/dL 3.7 Medical Decision Making Diego is a 58-year-old male with history of HTN, HLD, T2DM treated with Jardiance and ozempic who presents to the emergency dept for evaluation of burning abdominal pain. He reports that he started with symptoms on Wednesday (5 days ago) with epigastric pain and burning that extends up his esophagus that is accompanied by burping. He says symptoms have persisted since onset. He was seen at [facility] on 01/04/2024, diagnosed with GERD, although a pericardial effusion and gallstones were noted on his CT scan. He has been prescribed pantoprazole, only took 1 dose yesterday but vomited after taking it. He reports that he has a longstanding history of normal stool in the morning, followed by diarrhea at night. Denies fever/chills, difficulty swallowing, blood in stool or emesis, change in urine output. Physical exam remarkable for tenderness to palpation to epigastrium and left upper quadrant. Abdomen is soft, nondistended, with normoactive bowel sounds. Easy work of breathing, lung sounds clear bilaterally. Normal heart sounds. Moist mucous membranes. DDx includes but is not limited to GERD, ACS, dehydration or electrolyte imbalance, cholecystitis or biliary tree obstruction unlikely I independently interpreted the following tests: EKG reassuring, normal sinus rhythm, wandering baseline. Normal NC and QT intervals. Diffuse flattened T waves/inverted T waves throughout. CBC notable for leukocytosis, white cell count 15.7. Initial troponin, magnesium, and CMP reassuring. Chest x-ray unremarkable. CT abdomen/pelvis reassuring, no changes from previous. Cholelithiasis noted, as well as small pericardial effusion and small umbilical hernia. Echo performed, shows moderate pericardial effusion. I reviewed external records: [facility] ED visit from 01/04/2024; white cell count at that time was 12.2. While in the emergency department Diego received IV famotidine and pantoprazole, Carafate p.o., and IV fluids. He reports abdominal pain has significantly improved since receiving medications. Overall workup today reassuring. Unclear etiology of leukocytosis. Abdominal pain consistent with GERD. Recommend follow-up with cardiology and PCP, endoscopy likely indicated. Reviewed symptomatic management and red flags indicate need for return to emergency care. Patient is agreeable with plan of care Imaging Data Radiologic Study: Radiologist's impression: Exam(s) XR CHEST 2V PA LATERAL EXAM: XR CHEST 2V PA LATERAL CLINICAL HISTORY: leukocytosis, h/o cough TECHNIQUE: 2D digital imaging was performed. COMPARISON: No exams were available for comparison FINDINGS: HEART: Normal size. Aorta: Not dilated. PULMONARY VASCULATURE: Normal. LUNGS: Clear. PLEURAL SPACE: No pleural effusion or pneumothorax. BONE:Unremarkable for age. Hardware in cervical spine. Soft tissues: Unremarkable. IMPRESSION: No acute abnormality. Radiologic Study #2: Radiologist's impression: Exam(s) CT ABDOMEN PELVIS W EXAM: CT ABDOMEN PELVIS W CLINICAL HISTORY: epigastric pain w nausea. TECHNIQUE: Imaging Protocol: Axial computed tomography images with coronal and sagittal reformatted images were created and reviewed CONTRAST MATERIAL: Intravenous: Omnipaque 350 Contrast volume:100 ml Oral: / no COMPARISON: No exams were available for comparison FINDINGS: ABDOMEN and PELVIS: Lung Bases: Small pericardial effusion. Liver: Mildly enlarged. [id number] hepatic steatosis. No measurable mass. Gallbladder and biliary tract: Cholelithiasis. No gallbladder wall thickening or biliary dilatation. Pancreas: Normal density. No abnormal calcifications or inflammatory process. No evidence of mass. Spleen: Normal. Kidneys: Mild right renal atrophy. No radiodense stones. No obstructive uropathy. No suspicious masses seen. Adrenal glands: No masses seen. Vasculature: Abdominal aorta non-dilated. Soft tissues: Bilateral gynecomastia, not fully included on exam. Small bilateral fatty containing inguinal hernias, right greater than left. Small umbilical hernia containing fat and a small amount of fluid. Bladder: No gross wall thickening. No calculi.No focal mass. Bowel: No obstruction. No bowel wall thickening. Appendix normal. Peritoneal cavity: No ascites. No focal collection or mesenteric inflammatory response. Bones: Unremarkable for age. Reproductive organs: Within normal limits. Lymph nodes: Unremarkable. IMPRESSION:: Small pericardial effusion. Small umbilical hernia containing omental fat and a small amount of fluid. No findings to suggest incarceration. Cholelithiasis. No evidence of acute cholecystitis. Radiologic Study #3: Radiologist's impression: EXAM: Comprehensive 2D, Doppler, and color-flow Echocardiogram Patient Location: ER Room/Bed: 7 Technical Artist: Martin Etienne RDCS (AE) Indications: Pericardial effusion seen on outside CT yesterday Other Information Technically limited study due to body habitus. Conclusion Normal left ventricular wall thickness chamber size and systolic function. Ejection fraction is 60-65% Normal right ventricular size and systolic function Both atria are normal in size There is no structural or hemodynamically significant valvular disease Moderate pericardial effusion, no findings to suggest tamponade Wall motion Left Ventricle The left ventricle is normal size. The left ventricular systolic function is normal. The left ventricular ejection fraction is within the normal range. There is normal left ventricular wall thickness. There is normal LV segmental wall motion. There is no ventricular septal defect visualized. LVEF is 62-65%. Right Ventricle The right ventricle is normal size. Right ventricular systolic function is grossly normal. Atria The left atrium size is normal. The right atrium size is normal. The interatrial septum is intact with no evidence for an atrial septal defect. Aortic Valve The aortic valve is normal in structure. Aortic valve is probably trileaflet. There is no aortic valvular stenosis. No aortic regurgitation is present. Mitral Valve The mitral valve is normal in structure. No evidence of mitral valve stenosis. Trace mitral regurgitation. Tricuspid Valve The tricuspid valve is normal in structure. There is no tricuspid valve stenosis. Trace tricuspid regurgitation. Unable to assess PA pressure. Pulmonic Valve Pulmonic valve is not well visualized. There is no pulmonic valvular regurgitation. Great Vessels The aortic root is normal in size. The ascending aorta is mildly dilated. Aortic arch is normal in caliber. IVC is normal in size and collapses >50% with inspiration. Pericardium Moderate circumferential pericardial effusion. Lab Data Labs: Laboratory Tests Range/Units 01/06/24 09:35 WBC (4.4-10.8) 10^3/uL 15.37 H RBC (4.36-5.78) 10^6/uL 5.97 H Hgb (13.5-17.5) g/dL 16.3 Hct (40.0-50.0) % 48.5 MCV (80-95) fL 81 MCH (27.0-33.0) pg 27.3 MCHC (32.0-36.0) % 33.6 RDW (11.8-14.1) % 14.0 Plt Count (130-400) 10^3/uL 324 MPV (8.0-11.0) fL 8.2 Immature Gran % 1.2 Neutrophils % 74.9 Lymphocytes % 9.7 Monocytes % 7.7 Eosinophils % 6.0 Basophils % 0.5 Nucleated RBC % (0.0-0.3) % 0.0 Absolute Neutrophils (1.2-6.7) 10^3/uL 11.51 H Absolute Lymphocytes (1.2-3.4) 10^3/uL 1.49 Absolute Monocytes (0.1-0.8) 10^3/uL 1.18 H Absolute Eosinophils (0.0-0.7) 10^3/uL 0.92 H Absolute Basophils (0.0-0.2) 10^3/uL 0.08 Sodium (136-145) mmol/L 137 Potassium (3.5-5.1) mmol/L 3.7 Chloride (98-107) mmol/L 101 Carbon Dioxide (21.0-32.0) mmol/L 23.8 Anion Gap (3-11) mmol/L 12.2 H BUN (7-18) mg/dL 15 Creatinine (0.70-1.30) mg/dL 1.0 Est GFR (CKD-EPI 2020) (mL/min/1.73m2) 86.16 Glucose (74-106) mg/dL 160 H Calcium (8.5-10.1) mg/dL 9.0 Magnesium (1.8-2.4) mg/dL 1.8 Total Bilirubin (0.2-1.0) mg/dL 0.9 AST (15-37) U/L 8 L ALT (16-63) U/L 17 Alkaline Phosphatase (46-116) U/L 86 Troponin I (< or =60) ng/L < 50 Total Protein (6.4-8.2) g/dL 7.4 Albumin (3.4-5.0) g/dL 3.7 Lipase (16-77) U/L 22 Quality:SDOH Health Related Social Needs: No Data to Display PFSH All Active Problems (Updated 01/06/24 @ 13:45 by Sandy Harper) GERD with esophagitis (Acute) Tendonitis of long head of biceps brachii of right shoulder (Acute) Arthritis of right acromioclavicular joint (Acute) Rotator cuff tear, right (Acute) Tubular adenoma (Acute ~10/14/23) 01/15/23 Tubulovillous adenoma of colon (Acute ~01/15/23) Osteoarthritis of bilateral glenohumeral joints (Acute) Fatigue (Acute) Bilateral shoulder pain (Acute) Status post arthroscopy of left knee (Acute 08/25/22) Arthroscopic synovectomy and manipulation of left knee Arthrofibrosis of total knee arthroplasty (Acute) Painful total knee replacement, left (Acute) Lower extremity edema (Acute) Pericardial effusion (Acute) 01/2022-incidental finding on preoperative echocardiogram for heart murmur.-Unclear cause Heart murmur (Acute) 2021-, - echo-nl fx, nl valve History of total left knee replacement (TKR) (Acute 02/18/22) Dysfunction of right rotator cuff (Acute) POCUS injection 03/11/23 Right shoulder pain (Acute) Type 2 diabetes mellitus with diabetic nephropathy (Acute) 01/2022-microalbuminuria Colon polyp (Acute) 2016, diagnosed removed in [place] per patient-due for follow-up in 2021 Depression (Chronic) Hypokalemia (Acute) Obesity (Chronic) Developmental dyslexia (Acute) Hyperlipemia (Acute) Essential hypertension (Acute) Sleep apnea (Acute) CPAP Medical History (Updated 01/06/24 @ 13:45 by Sandy Harper) Screen for colon cancer History of colon polyps Surgical History (Updated 10/15/23 @ 13:32 by Najma Eller) Hx of rotator cuff surgery right 06/20/23 H/O arthroscopy of left knee approx 07/30 Status post colonoscopy with polypectomy (~01/15/23) Hx of total knee replacement left History of colonoscopy (~10/2023) path sent History of open reduction and internal fixation (ORIF) procedure (~11/08/84) r ankle fx H/O discectomy (~02/08/18) c5-6 History of orthopedic surgery (~1989) right ankle Family History Mother Breast cancer Diabetes Father , 89 Heart disease Sister No problems noted. Sister No problems noted. Brother No problems noted. Social History (Updated 09/24/23 @ 11:44 by DAVID Coyle) Smoking/Tobacco Use Status: Current-Occasional Tobacco Type: cigars Second Hand Exposure: Yes Smoking risk assessment performed?: Yes Alcohol Intake: current Alcohol Intake frequency: a few times a month Alcohol type: beer Substance use type: does not use Caregiver/Support person: No Household members: spouse Housing: apartment Communication Needs: None Do you need help understanding health information?: Rarely Pets and animals: Yes Pets and animals: dog(s) Sexually active: Yes Do you think of yourself as: straight/heterosexual Current gender identity: male What is your relationship status?: How often do you talk on the phone with friends or family?: three or more times per week How often do you get together with friends or relatives?: once per week How often do you attend amish or mandaeism services?: 1-3 times per year Do you belong to any clubs or organized social groups?: no Panel score (0-1 are the most socially isolated patients): 2 What type of physical activity do you participate in: none Miriam/Moravian: Lutheran Special miriam needs: No Seatbelt use: always Helmet use: Yes Helmet use: always Drive intox or ride w/intox truck driver's offsider: No Do you feel safe at home: Yes Do you feel safe in your relationship?: Yes PAWSS Have you Ever Experienced Previous Episodes of Alcohol Withdrawal?: No Have you ever Experienced Withdrawal Seizures?: No Have you ever Experienced Delirium Tremens(DT)s?: No Have you ever undergone Alcohol Rehabilitation Treatment (i.e, inpt ot outpatient treatment programs)?: No Have you ever Experienced Blackouts?: No Have you ever Combined Alcohol with other Downers within the last 90 days?: No Have you ever Combined Alcohol with any other Substance of Abuse during the last 90 days?: No Positive Blood Alcohol level on Presentation? [PCS.BAL]: No Evidence of Increased Autonomic Activity (i.e. HR>120, tremor, sweating, agitation, nausea)?: No Result: 0
[2024-01-06] MEDS: Sucralfate 1 GM TAB PO (10:34)
--- NOTE | 2024-01-06 11:00 | DI.RAD_ITS ---
Exam(s) XR CHEST 2V PA LATERAL EXAM: XR CHEST 2V PA LATERAL CLINICAL HISTORY: leukocytosis, h/o cough TECHNIQUE: 2D digital imaging was performed. COMPARISON: No exams were available for comparison FINDINGS: HEART: Normal size. Aorta: Not dilated. PULMONARY VASCULATURE: Normal. LUNGS: Clear. PLEURAL SPACE: No pleural effusion or pneumothorax. BONE:Unremarkable for age. Hardware in cervical spine. Soft tissues: Unremarkable. IMPRESSION: No acute abnormality. DATA REPOSITORY: RADIATION DOSE DELIVERED:
--- NOTE | 2024-01-06 11:00 | DI.US_ITS ---
APPROVED REPORT EXAM: Comprehensive 2D, Doppler, and color-flow Echocardiogram Patient Location: ER Room/Bed: 7 Sales Project Manager: Martin Etienne RDCS (AE) Indications: Pericardial effusion seen on outside CT yesterday Other Information Technically limited study due to body habitus. Conclusion Normal left ventricular wall thickness chamber size and systolic function. Ejection fraction is 60-6 5% Normal right ventricular size and systolic function Both atria are normal in size There is no structural or hemodynamically significant valvular disease Moderate pericardial effusion, no findings to suggest tamponade Wall motion Left Ventricle The left ventricle is normal size. The left ventricular systolic function is normal. The left ventric ular ejection fraction is within the normal range. There is normal left ventricular wall thickness. T here is normal LV segmental wall motion. There is no ventricular septal defect visualized. LVEF is 62 -65%. Right Ventricle The right ventricle is normal size. Right ventricular systolic function is grossly normal. Atria The left atrium size is normal. The right atrium size is normal. The interatrial septum is intact wit h no evidence for an atrial septal defect. Aortic Valve The aortic valve is normal in structure. Aortic valve is probably trileaflet. There is no aortic valv ular stenosis. No aortic regurgitation is present. Mitral Valve The mitral valve is normal in structure. No evidence of mitral valve stenosis. Trace mitral regurgita tion. Tricuspid Valve The tricuspid valve is normal in structure. There is no tricuspid valve stenosis. Trace tricuspid reg urgitation. Unable to assess PA pressure. Pulmonic Valve Pulmonic valve is not well visualized. There is no pulmonic valvular regurgitation. Great Vessels The aortic root is normal in size. The ascending aorta is mildly dilated. Aortic arch is normal in ca liber. IVC is normal in size and collapses >50% with inspiration. Pericardium Moderate circumferential pericardial effusion. 2D Dimensions IVSD d PLAX 0.95 cm M: 0.6-1.2 Ao Root d 2.99 cm M: 3.1 - 3.7 LVPW d PLAX 0.93 cm M: 0.6 - 1.2 Ao Asc Diam d 3.63 cm M: 2.6 - 3.4 LVID d PLAX 4.22 cm M: 4.2 - 5.8 LVDs 2.73 cm M: 2.5 - 4.0 LV EF Teichholz 65.1 % FS 35.32 % LV EDV (Teich) 79.4 mL LV ESV (Teich) 27.7 mL Stroke Vol Index (Teich) 21.18 M-Mode TAPSE 2.33 cm (M/F) >1.7 Auto EF LV EDV A4C 123.5 mL LV EDV A2C 129.7 mL LV EDV BP 128.8 mL LV ESV A4C 47.0 mL LV ESV A2C 47.7 mL LV ESV BP 47.5 mL LVEF(%) A4C 62.0 % LVEF(%) A2C 63.2 % LVEF(%) BP 63.1 % LV SV A4C 76.6 ml LV SV A2C 82.0 ml LV SV BP 81.3 ml LV CO A4C 6.0 L/min LV CO A2C 6.1 L/min LV CO BP 6.1 L/min HR A4C 78.95 BPM HR A2C 74.85 BPM LV EDV Index (BP) LA Volume LA Length A4C 4.0 cm LA Length A2C 5.2 cm LA Area A4C s 6.96 cm2 LA Area A2C s 11.61 cm2 LA Vol A4C A-L 10.36 mL LA Vol A2C A-L 22.20 mL LA Vol Biplane A-L 17.3 mL LA Vol/BSA A4C A-L LA Vol/BSA A2C A-L LA Vol/BSA BP A-L 7.1 mL/m2 LA Vol A4C MOD 9.7 mL LA Vol A2C MOD 21.0 mL LA Vol BP MOD 16.3 mL RA Volume RA Area A4C 9.7 cm2 RA ESV A4C (A-L) 18.6mL RA Vol/BSA A4C A-L RA Length A4C 4.3 cm RA ESV A4C (MOD) 17.9mL LV Diastology MV E' medial 0.091 (>0.07 m/s) MV E Vmax 0.93 (0.4-1.3 m/s) MV E/E' MED 10.25 (<14) MV A Vmax 0.90 (0.4-1.3 m/s) MV E' lateral 0.096 (>0.1 m/s) E/A Ratio 1.0 MV E/E' LAT 9.68 (<14) MV E' Average 0.094 m/s MV E/E'(average) 9.96 Aortic Valve AoV Vmax 1.38 m/s LVOT Vmax 1.25 m/s AoV Peak Grad 7.6 mmHg LVOT Peak Grad 6.3 mmHg AoV Area (Vmax) 2.77 cm2 LVOT VTI 0.226 m AoV VTI 0.248 m LVOT Mean Grad 3.3 mmHg AoV Mean Nhan. 1.02 m/s LVOT SV 69.09 mL AoV Mean Grad 4.6 mmHg LVOT Diam s 1.95 cm AoV Area (VTI) 2.78 cm2 Velocity Ratio 0.91 Mitral Valve MV DT 259 (160-240 msec) Pulmonary Valve PV Vmax 0.97 (0.5-1.5 m/s) RVOT Vmax 0.84 m/s PV Peak Grad 3.7 mmHg RVOT Peak Gr. 2.9 mmHg PV Mean Nhan 0.75 m/s RVOT VTI 0.173 m PV Mean Grad 2.4 mmHg RVOT Mean Gr. 1.5 mmHg
--- NOTE | 2024-01-06 11:05 | DI.CT_ITS ---
Exam(s) CT ABDOMEN PELVIS W EXAM: CT ABDOMEN PELVIS W CLINICAL HISTORY: epigastric pain w nausea. TECHNIQUE: Imaging Protocol: Axial computed tomography images with coronal and sagittal reformatted images were created and reviewed CONTRAST MATERIAL: Intravenous: Omnipaque 350 Contrast volume:100 ml Oral: / no COMPARISON: No exams were available for comparison FINDINGS: ABDOMEN and PELVIS: Lung Bases: Small pericardial effusion. Liver: Mildly enlarged. [id number] hepatic steatosis. No measurable mass. Gallbladder and biliary tract: Cholelithiasis. No gallbladder wall thickening or biliary dilatation. Pancreas: Normal density. No abnormal calcifications or inflammatory process. No evidence of mass. Spleen: Normal. Kidneys: Mild right renal atrophy. No radiodense stones. No obstructive uropathy. No suspicious mass es seen. Adrenal glands: No masses seen. Vasculature: Abdominal aorta non-dilated. Soft tissues: Bilateral gynecomastia, not fully included on exam. Small bilateral fatty containing i nguinal hernias, right greater than left. Small umbilical hernia containing fat and a small amount o f fluid. Bladder: No gross wall thickening. No calculi.No focal mass. Bowel: No obstruction. No bowel wall thickening. Appendix normal. Peritoneal cavity: No ascites. No focal collection or mesenteric inflammatory response. Bones: Unremarkable for age. Reproductive organs: Within normal limits. Lymph nodes: Unremarkable. IMPRESSION:: Small pericardial effusion. Small umbilical hernia containing omental fat and a small amount of fluid. No findings to suggest in carceration. Cholelithiasis. No evidence of acute cholecystitis. RADIATION DOSE DELIVERED: 1,527.36mGy.cm Total DLP DATA REPOSITORY: All CT scans at this facility are submitted to the National Radiology Data Registry (NRDR) Dose Index Registry (DIR) with the [employer] (ACR). RADIATION OPTIMIZATION: All CT scans at this facility use at least one of these dose optimization te chniques: automated exposure control; mA and/or kV adjustment per patient size (includes targeted exa ms where dose is matched to clinical indication); or iterative reconstruction.
[2024-01-06 11:40] VITALS: BP 143/71; PULSE 82; RESP 18; O2SAT 97
[2024-01-06] MEDS: Normal Saline - Diluent 50 ML VIAL IJ (12:09)
[2024-01-06 12:10] LABS: Lipase 22 U/L (16-77)
[2024-01-06] MEDS: Omnipaque 350 MG/ML 500 ML BTL-Imaging package IJ (12:11)
[2024-01-06] MEDS: Pantoprazole 40 MG VIAL IVP (13:19)
[2024-01-06 13:20] LABS: Troponin I < 50 ng/L (< or =60)
[2024-01-06 13:24] VITALS: BP 165/64; PULSE 68; RESP 18; O2SAT 96
[2024-01-06 14:08] VITALS: BP 124/62; PULSE 85; RESP 18; O2SAT 96
--- NOTE | 2024-01-06 16:08 | NUR.NOTE ---
Referral faxed to Cardiology for the next available appointment for Pericardio Effusion.
--- NOTE | 2024-01-08 07:15 | NUR.NOTE ---
Accessed chart to determine orders for EKG and to determine whether or not one needs to be cancelled. Duplicate order cancelled. Nursing Note:
== END 2024-01-06 14:20 | disposition home or self-care (01) ==
PROVIDERS: Emergency Provider Nurse Practitioner Family; PCP Nurse Practitioner Family
DX: K21.00 Gastro-esophageal reflux disease with esophagitis, without bleeding (principal); I31.39 Other pericardial effusion (noninflammatory); I10 Essential (primary) hypertension; E78.5 Hyperlipidemia, unspecified; E11.9 Type 2 diabetes mellitus without complications; Z79.84 Long term (current) use of oral hypoglycemic drugs; Z79.85 Long-term (current) use of injectable non-insulin antidiabetic drugs
CPT/HCPCS: 80053; 83690; 93005; 93306; 96361; 96374; 96375; 99285; 71046; 74177; 83735; 84484; 85025; 93010; 99284; J2470

== ENCOUNTER → 2024-02-15 09:44 | Outpatient (BNVA) | payer MEDICARE, SELFPAY | PROVIDERS: PCP Nurse Practitioner Family; Visit Provider Student in an Organized Health Care Education/Training Program | DX: M19.011 Primary osteoarthritis, right shoulder (principal); M75.21 Bicipital tendinitis, right shoulder; M75.101 Unspecified rotator cuff tear or rupture of right shoulder, not specified as traumatic | CPT/HCPCS: 99213 ==

== ENCOUNTER 2024-02-22 03:56 | Outpatient (CLI) | payer MEDICARE, SELFPAY ==
[2024-02-22 10:57] LABS: Abs Immature Grans 0.07 10^3/uL (0.0-0.06); Absolute Basophil Count 0.06 10^3/uL (0.0-0.2); Absolute Eosinophil Count 0.77 10^3/uL (0.0-0.7); Absolute Lymphocyte Count 1.43 10^3/uL (1.2-3.4); Absolute Monocyte Count 0.52 10^3/uL (0.1-0.8); Absolute Neutrophil Count 6.45 10^3/uL (1.2-6.7); Basophils % 0.6; ESR 7 mm/hr (0-20); Eosinophils % 8.3; HGB 14.8 g/dL (13.5-17.5); Immature Grans % 0.8; Lymphocytes % 15.4; MCH 27.3 pg (27.0-33.0); MCHC 32.9 % (32.0-36.0); MCV 83 fL (80-95); MPV 8.6 fL (8.0-11.0); Monocytes % 5.6; Neutrophils % 69.3; Platelet Count 260 10^3/uL (130-400); RBC 5.42 10^6/uL (4.36-5.78); RDW 13.7 % (11.8-14.1); RDW-SD 41.5 fL
[2024-02-22 11:36] LABS: C-Reactive Protein 0.65 mg/dL (<or=0.5)
== END 2024-02-22 03:57 | disposition home or self-care (01) ==
LOC: LBO 03:56
PROVIDERS: Physician Assistant; PCP Nurse Practitioner Family; Visit Provider Student in an Organized Health Care Education/Training Program
DX: M75.101 Unspecified rotator cuff tear or rupture of right shoulder, not specified as traumatic (principal)
CPT/HCPCS: 36415; 85652; 85025; 86140

== ENCOUNTER → 2024-02-29 01:50 | Outpatient (CLI) | payer MEDICARE, SELFPAY ==
--- NOTE | 2024-02-29 07:30 | DI.MRI_ITS ---
Exam(s) MR UPPER JOINT RT WO EXAM: MR UPPER JOINT RT WO CLINICAL HISTORY: R SHOULDER PAIN,TENDONITIS BICEPS BRACHI,ARTHRITIS RT AC JOINT,RT ROTATOR TECHNIQUE: Multiplanar multisequence MRI of the shoulder was performed. COMPARISON: MR MR UPPER JOINT RT WO from 05/25/2023 FINDINGS: Compared to the MRI scan of May 2023 there has been interval rotator cuff surgery. There are total 5 fastener channels in the humeral head. MARROW:There is no evidence of fracture, Hill-Sachs deformity, nor ominous osseous lesions. GLENOHUMERAL JOINT: No joint effusion nor obvious loose intra-articular bodies. No prominent chondra l defects. No osteophytes. No degenerative subarticular cysts. ROTATOR CUFF MECHANISM: AC JOINT/ACROMIUM: Mild widening. There is also a para-articular cyst pointing anteriorly measuring 3.5 x 3.5 mm.. There is no evidence of os acromiale. Supraspinatus: Tendinitis signal. Area of partial thickness articular side tearing. There also appe ared to be a small area of full-thickness tear and there is mild fluid in the overlying subacromial b ursa. Muscle atrophy is similar to May 2023. Infraspinatus: Partial articular surface tearing.. No obvious full-thickness tear. Amount of atroph y is unchanged. Teres Minor: Intact. No evidence of tear nor muscle atrophy. Subscapularis/anterior cuff: Intact. No significant tearing. No atrophy. BICEPS TENDON: But some thickening and signal abnormality within the intra-articular aspect. No evid ence of tear. No tenosynovitis. LABRUM: Superior labrum appears intact. There is abnormality of the posterior labrum consistent with tearing. Inferior labrum appears intact. Anterior labrum appears intact. No evidence of paralabra l cyst. IMPRESSION: 1. There has been interval surgery since the prior MRI scan of May 2023. 2. However, there is partial-thickness tearing as well as a small area of full-thickness tear in the supraspinatus tendon and there is small amount of fluid in the overlying subacromial bursa. 3. Partial-thickness tearing of the articular surface of the infraspinatus. 4. Some thickening and abnormal signal in the intra-articular aspect of the biceps tendon noted. There appears to be some tearing of the posterior labrum. No evidence of paralabral cyst. DATA REPOSITORY:
== END ==
PROVIDERS: PCP Nurse Practitioner Family; Visit Provider Student in an Organized Health Care Education/Training Program
DX: M75.21 Bicipital tendinitis, right shoulder (principal); M19.011 Primary osteoarthritis, right shoulder
CPT/HCPCS: 73221

== ENCOUNTER → 2024-03-14 12:52 | Outpatient (BNVA) | payer MEDICARE, SELFPAY | PROVIDERS: PCP Nurse Practitioner Family; Referring Provider Nurse Practitioner Family; Visit Provider Student in an Organized Health Care Education/Training Program | DX: M75.21 Bicipital tendinitis, right shoulder (principal); M75.101 Unspecified rotator cuff tear or rupture of right shoulder, not specified as traumatic; M19.011 Primary osteoarthritis, right shoulder | CPT/HCPCS: 99213 ==

== ENCOUNTER → 2024-10-12 11:21 | Outpatient (BNVA) | payer MEDICARE, SELFPAY | PROVIDERS: PCP Nurse Practitioner Family; Referring Provider Nurse Practitioner Family; Visit Provider Physical Therapy Assistant | DX: Z12.11 Encounter for screening for malignant neoplasm of colon (principal); Z86.0100 Personal history of colon polyps, unspecified; E11.9 Type 2 diabetes mellitus without complications; I10 Essential (primary) hypertension ==

== ENCOUNTER 2024-10-12 12:12 | Outpatient (CLI) | payer MEDICARE, SELFPAY ==
[2024-10-12 13:00] LABS: CREATININE 1.3 mg/dL (0.70-1.30); Calculated LDL 55 mg/dL (<100); Cholesterol 131 mg/dL (<200); HDL Cholesterol 39 mg/dL (40-60); Triglyceride 185 mg/dL (<150)
== END 2024-10-12 12:13 | disposition home or self-care (01) ==
LOC: LBO 12:12
PROVIDERS: PCP Nurse Practitioner Family; Visit Provider Nurse Practitioner Family
DX: E78.2 Mixed hyperlipidemia (principal); Z13.220 Encounter for screening for lipoid disorders; I10 Essential (primary) hypertension
CPT/HCPCS: 36415; 80061; 82565; 84132

== ENCOUNTER 2024-10-27 07:44 | Day surgery (SDC) | payer MEDICARE, SELFPAY ==
--- NOTE | 2024-10-26 18:01 | W.PM.DSUDISC ---
Date of service: 10/27/24 Discharge Plan Disposition Patient Disposition: Home Condition: Good Discharge Details Reason For Visit: screening colonoscopy Attending Provider: Cirilo Tay Primary Care Provider: Mikhail Elizabeth Home Meds and New Rx's Prescriptions: Continued losartan 100 mg tablet 100 mg PO DAILY Qty: 90 3RF triamcinolone acetonide 0.5 % cream 1 applic topical BID Qty: 15 2RF fluticasone propionate [Flonase Allergy Relief] 50 mcg/actuation spray,suspension 2 spray intranasal DAILY Rx Instructions: administer into each nostril simvastatin 40 mg tablet 40 mg PO HS Qty: 90 3RF spironolactone 50 mg tablet 50 mg PO DAILY Qty: 90 3RF Patient Comments: TAKE 1 TABLET (50MG) BY MOUTH DAILY Ozempic 2 mg/dose (8 mg/3 mL) pen injector 2 mg subcut QWEEK Qty: 9 3RF acetaminophen 500 mg tablet 1,000 mg PO Q8H PRN Qty: 90 0RF Rx Instructions: Take two tablets up to every 8 hours as needed for pain metoprolol succinate 100 mg tablet extended release 24 hr 100 mg PO HS amlodipine 10 mg tablet 10 mg PO HS Discontinued bisacodyl [Dulcolax (bisacodyl)] 5 mg tablet,delayed release (DR/EC) 5 mg PO ONCE Qty: 4 0RF Rx Instructions: Take per colonoscopy instructions provided by ordering providers office polyethylene glycol 3350 17 gram/dose powder 17 g PO ONCE Qty: 238 0RF Rx Instructions: Take per colonoscopy instructions provided by ordering providers office Discharge Instructions Instructions: Colon polyps Additional Instructions: Diego, it was nice seeing you today, and I hope you make a quick recovery from today's colonoscopy. Similar to your previous experiences, I did remove a total of 4 polyps today. These were all relatively small in size, and as you have experienced in the past, these will be sent off for testing. I want to see these results before making any decisions on the timing of your next colonoscopy. 1. If tolerated, consume a soft, low fiber diet for 1-2 days. 2[address] Do not drive, drink alcohol, operate machinery, make critical decisions, or do activities that require coordination or balance for 24 hours. 3. Because air was put into your colon during the procedure, expelling air from your rectum (passing gas or farting) is normal. 4. You may not have a bowel movement for 1-3 days because of the colonoscopy prep. This is normal. 5. Go directly to the emergency room if you notice any of the following: Develop chills (warm to touch), or if you have a thermometer and your temperature is above 101 Difficulty breathing or difficultly swallowing Persistent vomiting Severe abdominal pain, other than gas cramps Severe chest pain Black, tarry stools Any bleeding ? exceeding one tablespoon 6. Call your physician if the site where your intravenous was started becomes red, swollen, painful, and warm to touch. 7. Your physician has reviewed your pre-procedure medications. Please continue to take those medications as previously ordered. You will be given specific information/education regarding any changes to your medications before leaving. Activity:: Activity as Tolerated Diet:: As Tolerated Discharge Orders Discharge Orders: Discharge Order (Routine); Ordered 10/26/24 Ordered By: Cirlio Tay DS: Diagnosis Discharge Diagnosis (1) Encounter for screening colonoscopy: Status: Acute Asessment and Plan: Follow-up on polypectomy results
--- NOTE | 2024-10-26 18:02 | W.COLOREPORT ---
Date of service: 10/27/24 Time of Service: 10:10 Colonoscopy Report Date of procedure: 10/27/24 Pre-op diagnosis general: screening colonoscopy Procedure: colonoscopy with polypectomy Surgeon: Cirilo Tay Anesthesia Type: General:No Airway Estimated blood loss (mL): 10 Pathology: other (0.25 cm ascending colon polyp, 0.25 cm polyp at at 60 cm, 0.25 cm polyps at 55 cm x 2) Complications: None Disposition: same day Indications: Diego is a 59 year old manw ho has a history of tubulovillous adenoma with high grade dysplasia. He underwent colonoscopic resection. He had a follow up colonoscopy that showed tubular adenoma and he is here for his next colonoscopy Prep: Miralax/Dulcolax Procedure Start Time: 09:35 Procedure End Time: 10:00 Retraction Time: 21 Findings: 0.25 cm ascending colon polyp, 0.25 cm polyp at at 60 cm, 0.25 cm polyps at 55 cm x 2 Procedure Description: After the induction of anesthesia, and with the patient in left lateral decubitus position, I began by performing an external anorectal exam.? Perineum and skin were normal, as was the anal verge.? There was no evidence of external hemorrhoids.? Next, I performed a digital rectal exam.? I did not appreciate any abnormal findings.? Next, I advanced a colonoscope into the rectal vault.? I performed retroflexion.? This appeared normal.? Using insufflation, I then advanced the colonoscope beyond the rectal folds and into the sigmoid colon before advancing towards the cecum.?The scope was noted to be in the cecum by identification of the ileocecal valve and appendiceal orifice.? I then began withdrawing the colonoscope using repeated irrigation as necessary for full evaluation of the colonic mucosa. There is a 0.25 cm flat polyp in the ascending colon. This was removed with cold forceps with minimal bleeding.? Another 0.25 cm polyp was found at 60 cm from the anus. This was also removed with cold forceps. Two more polyps were found at 55 cm. Similar to the other 2, these were flat, and both removed with cold forceps. These were sent as a single specimen. ?Once the scope was withdrawn to the level of the rectum, great care was taken to examine portions of the rectal folds.? Finally, the scope was withdrawn and the patient was brought to the same-day surgery recovery unit as the anesthetic wore off. ?The findings and instructions were shared with the patient prior to discharge. Napoleon Bowel Prep Napoleon Bowel Prep Right Colon: 2 Left Colon: 2 Transverse Colon: 2 Total Score: 6
[2024-10-27 08:04] VITALS: BP 151/77; PULSE 84; RESP 16; TEMP 36.5; O2SAT 99
[2024-10-27] MEDS: Normal Saline 1,000 ML 30 ML IV (08:57)
--- NOTE | 2024-10-27 09:27 | ANES.PREOP_ITS ---
General Info Date of Service Date Performed: 10/27/24 Height: 5 ft 11 in Weight: 133.3 kg Body Mass Index (BMI): 40.9 Surgical Procedure: Operation Date: 10/27/24 09:05 Proposed Procedure Side Surgeon theresa Tay MD Meds Allergies and Home Medications Allergies Allergy/AdvReac Type Severity Reaction Status Date / Time No Known Allergies Allergy Verified 10/27/24 08:26 Home Medication ?Medication ?Instructions ?Recorded fluticasone propionate 50 2 spray intranasal DAILY 12/31/21 mcg/actuation nasal spray,suspension (Flonase Allergy Relief) acetaminophen 500 mg tablet 1,000 mg (2 x 500 mg) PO Q8H PRN 08/25/22 pain #90 tabs triamcinolone acetonide 0.5 % 1 applic topical BID #15 grams 04/19/23 topical cream simvastatin 40 mg tablet 40 mg PO HS #90 tabs 02/02/24 semaglutide 2 mg/dose (8 mg/3 mL) 2 mg (0.75 mL) subcut QWEEK #9 mL 04/12/24 subcutaneous pen injector (Ozempic) spironolactone 50 mg tablet 50 mg PO DAILY #90 tabs 04/12/24 losartan 100 mg tablet 100 mg PO DAILY #90 tabs 09/27/24 amlodipine 10 mg tablet 10 mg PO HS 10/25/24 metoprolol succinate 100 mg 100 mg PO HS 10/25/24 tablet,extended release 24 hr Current Visit Medications: Current Medications Generic Name Dose Route Start Last Admin Trade Name Freq PRN Reason Stop Dose Admin Sodium Chloride 1,000 mls @ 30 mls/hr 10/27/24 07:45 10/27/24 08:57 Saline 1000ml Bag IV 11/26/24 07:44 30 mls/hr INFUSION GENE Administration IV Miscellaneous Supplies 1 each 10/27/24 06:00 Iv Access IV 11/25/24 23:59 DIRECTED GENE Ondansetron HCl 4 mg 10/26/24 18:05 Ondansetron 4 Mg/2 Ml Vial IVP 11/25/24 18:04 Q4H PRN PRN Nausea / Vomiting Sodium Chloride 0 ml 10/27/24 06:00 Normal Saline Flush 10 Ml Syr IV 11/25/24 23:59 PRN PRN Sodium Chloride 0 ml 10/27/24 06:00 Normal Saline 10 Ml Vial IJ 11/25/24 23:59 DIRECTED PRN Sterile Water 0 ml 10/27/24 06:00 Water,Injection,Sterile 10 Ml Vial IJ 11/25/24 23:59 DIRECTED PRN PFSH Active Problems Active Problems: Problem Status Onset Code Tendonitis of long head of biceps brachii of right shoulder Acute M75.21 Arthritis of right acromioclavicular joint Acute M19.011 Rotator cuff tear, right Acute M75.101 Tubular adenoma Acute ~10/14/23 D36.9 Tubulovillous adenoma of colon Acute ~01/15/23 D12.6 Osteoarthritis of bilateral glenohumeral joints Acute M19.011, M19.012 Fatigue Acute R53.83 Bilateral shoulder pain Acute M25.511, M25.512 Status post arthroscopy of left knee Acute 08/25/22 Z98.890 Arthrofibrosis of total knee arthroplasty Acute T84.82XA Painful total knee replacement, left Acute T84.84XA, Z96.652 Lower extremity edema Acute R60.0 Pericardial effusion Acute I31.3 Heart murmur Acute R01.1 History of total left knee replacement (TKR) Acute 02/18/22 Z96.652 Dysfunction of right rotator cuff Acute M67.911 Right shoulder pain Acute M25.511 Type 2 diabetes mellitus with diabetic nephropathy Acute E11.21 Colon polyp Acute K63.5 Depression Chronic F32.A Hypokalemia Acute E87.6 Obesity Chronic E66.9 Developmental dyslexia Acute F81.0 Hyperlipemia Acute E78.5 Essential hypertension Acute I10 Sleep apnea Acute G47.30 Medical History Medical History Screen for colon cancer History of colon polyps Medical History Comments:: - 4 pins in neck c4-c6 - front tooth missing Surgical History Surgical History Hx of rotator cuff surgery right 06/20/23 H/O arthroscopy of left knee approx 07/30 Status post colonoscopy with polypectomy (~01/15/23) Hx of total knee replacement left History of colonoscopy (~10/2023) path sent History of open reduction and internal fixation (ORIF) procedure (~11/08/84) r ankle fx H/O discectomy (~02/08/18) c5-6 History of orthopedic surgery (~1989) right ankle Tobacco Smoking/Tobacco Use Status: Current-Occasional Tobacco Type: cigars Passive smoking exposure: No Second hand exposure: Yes Alcohol Alcohol Intake: current Alcohol intake frequency: a few times a month Alcohol type: beer Substance Use Substance use type: does not use Vital Signs and Lab Results Vital Signs Most Recent Vital Signs in EMR: Most Recent Vital Signs Temp Pulse Resp BP Pulse Ox 36.5 C 84 16 151/77 H 99 10/27/24 08:04 10/27/24 08:04 10/27/24 08:04 10/27/24 08:04 10/27/24 08:04 Point of Care Results Point of Care Results: Finger Stick Blood Glucose 160 10/27/24 08:19 Lab Results Blood Type / Crossmatch: No Data to Display Complete Blood Count: No Data to Display Complete Metabolic Panel: Potassium 4.0 mmol/L (3.5-5.1) 10/12/24 12:19 Creatinine 1.3 mg/dL (0.70-1.30) 10/12/24 12:19 Est GFR (CKD-EPI 2020) 62.50 (mL/min/1.73m2) 10/12/24 12:19 Liver Function Panel: No Data to Display Coagulation Panel: No Data to Display Cardiac Panel: No Data to Display Arterial Blood Gas: No Data to Display Venous Blood Gas: No Data to Display Pancreas Panel: No Data to Display Thyroid Panel: No Data to Display Infectious Disease: No Data to Display Blood Cultures: No Data to Display Toxicology Panel: No Data to Display Imaging and Studies Imaging and Studies Study information below may be from another EMR and interpreted by another provider. Please see original notes in EMR for more complete details. EKG Summary: EKG PATIENT NAME: Diego Cardoza Jr UNIT #: [id number] ORDERING PROVIDER: Jayme Carcamo M.D. PRIMARY CARE PROVIDER: JUMA RUBIO NP DATE/TIME OF SERVICE: 01/06/24 0925 : 1965 PERFORMING LOCATION: ER APPROVED REPORT Exam: Resting ECG Reason for Exam: epigastric pain Patient Location: E HR:92 bpm ECG Measurements Heart Rate 92 AXIS SC 167 P 65 QRSd 92 QRS 63 QT 337 T-72 QTc 416 Conclusion Sinus rhythm 92 normal axis non specific t wave changes no stemi <Electronically signed by Jayme Carcamo M.D. in [place]> E-Sign Date: 01/06/24 E-Sign Time: 930 ADDENDUM APPROVED REPORT Exam: Resting ECG Reason for Exam: epigastric pain Patient Location: E HR:92 bpm ECG Measurements Heart Rate 92 AXIS SC 167 P 65 QRSd 92 QRS 63 QT 337 T-72 QTc 416 Conclusion Sinus rhythm 92 normal axis non specific t wave changes no stemi I have reviewed and I agree with the emergency room physician's ECG interpretation. Electronically signed by: <Electronically signed by Massiel Harp M.D. in [place]> 01/06/24 1249 Cosigned by: Echocardiogram Summary: Date of Exam: 07/08/22Sex: M Admission Date: 07/08/22 : 1965 Age: 56 APPROVED REPORT EXAM: Comprehensive 2D, Doppler, and color-flow Echocardiogram Patient Location: Out-Patient Clinical Laboratory Director: Sonia Hadley RDCS (AE) Indications: Pericardial effusion, sleep apnea, murmur Other Information Study Quality: Adequate Conclusion Normal left ventricular wall thickness and chamber size. Estimated ejection fraction is 60%. Wall motion is normal Normal right ventricular size and systolic function Both atria are normal in size There is no structural or hemodynamically significant valvular disease Estimated right ventricular systolic pressure is 43 mmHg Moderate circumferential pericardial effusion, no evidence of tamponade Anesthesia Assessment and Plan Anesthesia History Personal History: No History of Anesthesia Complications Family History: No Family History of Anesthesia Complications and Other Exercise Tolerance Exercise Tolerance: Metabolic Equivalents>4 Pertinent Negatives Pertinent Negatives: No Symptoms of GERD, No Major Pulmonary Symptoms or Complaints and No History of CVA/TIA Cardiac & Pulmonary Exam Cardiac Exam: Normal S1/S2 Heart Sounds Pulmonary Exam: Clear Bilateral Breath Sounds Implantable Cardiac Device Does patient have a Pacemaker or an ICD?: No Airway Exam Known Difficult Airway: No Previous Airway Comments:: GUSTAVO Mallampati Class: 3 Mouth Opening: Narrow (< 3cm) Thyromental Distance: Less than 3 cm Neck Range of Motion: Limited ROM and History of Cervical Fusion Neck Circumference: Thick Teeth Condition: Generalized Poor Dentition and Loose or Chipped (left front tooth broken to base) ASA Classification ASA Score: ASA 3 Emergency Case?: No NPO Status NPO Status: NPO Clears >2 hours, Solids >8 hours Anesthesia Plan Resuscitation Status: Full Code Anesthesia Technique: General Anesthesia Airway Planned: Natural Airway Monitors Used: Standard Monitors
[2024-10-27 09:28] VITALS: BMI 40.9
--- NOTE | 2024-10-27 09:43 | BOWEL_PTH ---
PATIENT: Diego Cardoza JR LOC: [facility] U#:[id number] AGE/SX: 59/M ROOM: RE10/27/[address]: Cirilo Tay MD : 1965 BED: DIS: 10/27/2024 SPEC #: [id number] RECD: 10/27/24 10:36 STATUS: LAM REQ #: [id number] DULCE: 10/27/24 09:[address]: Cirilo Tay DEPT: Surgical Specimen RECD BY: Silvana Griffin ENTERED: 10/27/24 10:38 SP TYPE: Bowel OTHR DR: Mikhail Elizabeth, BLOCKING MACHINE OPERATOR Tissues: 1 - BIOPSY BOWEL 2 - BIOPSY BOWEL 3 - BIOPSY BOWEL Procedures: GROSS AND MICRO LEVEL 4 Comments: [id number]
[2024-10-27 10:07] VITALS: BP 133/76; PULSE 80; RESP 18; TEMP 36.3; O2SAT 96
--- NOTE | 2024-10-27 10:23 | W.ANESPOSTOP ---
Postoperative Evaluation Date, Time and Location Date Performed: 10/27/24 Time Performed: 10:23 Patient Location: Day [facility] Unit Vital Signs Most Recent Imported Vital Signs: Most Recent Vital Signs Temp Pulse Resp BP Pulse Ox 36.3 C L 80 18 133/76 96 10/27/24 10:07 10/27/24 10:07 10/27/24 10:07 10/27/24 10:07 10/27/24 10:07 Pain Score Most Recent Pain Score: Most Recent Pain Score Pain Level 0 10/27/24 10:07 Assessment Mental Status: Arousable with meaningful communication Airway and Respiratory Function: Patent airway with normal (patient baseline) respiratory exam Cardiovascular Function: Hemodynamically Stable Hydration Status: Adequately Hydrated Nausea & Vomiting: No Nausea or Vomiting Pain: Pt. Denies Any Pain Peripheral Nerve Block: Patient did not receive a nerve block
[2024-10-27 10:33] VITALS: BP 145/75; PULSE 78; RESP 18; TEMP 36.6; O2SAT 100
== END 2024-10-27 10:48 | disposition home or self-care (01) ==
LOC: SUR 07:45
PROVIDERS: PCP Nurse Practitioner Family; Visit Provider Surgery
PROC: 0DJD8ZZ Inspection of Lower Intestinal Tract, Via Natural or Artificial Opening Endoscopic (ICD-10-PCS; CPT 45378; principal; 2024-10-27 09:00)
DX: Z12.11 Encounter for screening for malignant neoplasm of colon (principal); E11.9 Type 2 diabetes mellitus without complications; I10 Essential (primary) hypertension; D12.2 Benign neoplasm of ascending colon; D12.4 Benign neoplasm of descending colon; D12.5 Benign neoplasm of sigmoid colon
CPT/HCPCS: 45380; 88305; J2704

== ENCOUNTER 2025-03-05 00:44 | Outpatient (CLI) | payer MEDICARE, SELFPAY ==
--- NOTE | 2025-03-05 14:34 | W.NUTRFU ---
Date of service: 03/05/25 Time of Service: 14:00 Nutrition Note NOTE: Diego referred to nutrition appt for diabetes education/mgt. Arrives with Aracelis. Diego states he likes real food and during interview, assessed to have a lower working knowledge of nutrition facts and terms. Aracelis complains of feeling compelled to cook things he wants - has large portions of pasta and other starches, drinks soda and energy drinks and will snack into the night. Aracelis relates that he woke up the other night and ate a large bowl of pasta. Diego does not deny eating foods he likes. The appt time spent trying to impress on him, the need to reduce added sugar and refined starches and added fats and increase his fiber intake. Current diet assessed as high in ultra processed foods and Sugar sweetened bevs. No exercise currently although he stays active - tried to explain the difference between these. Encouraged small steps toward habit improvement as apposed to attempts to do a 180 reverse over night. Spent time going over how to track added sugar and importance to limit this to 25grams per day or less and to increase fiber to 30grams or more. High A1c of 9.4 last value in February. takes metformin 1,000BID and basal insulin - reports 18units degludec at HS. He is working with pharmacist KHLOE-ADM with insulin dosage/titration. Without significant diet improvements, would recommend meal time insulin for better glucose control. Gave Diego and Aracelis my contact info to reach out if having any diet questions. Plan to reach out x1 month with phone follow up Time Spent in Nutritional Counseling and Treatment: 45 min
== END 2025-03-05 00:45 | disposition home or self-care (01) ==
LOC: DS 00:44
PROVIDERS: PCP Nurse Practitioner Family; Visit Provider Dietitian, Registered
DX: E11.21 Type 2 diabetes mellitus with diabetic nephropathy (principal)
CPT/HCPCS: 00123; 97802

== ENCOUNTER 2025-06-13 09:51 | Outpatient (REF) | payer MEDICARE, SELFPAY ==
[2025-06-13 13:59] LABS: COMMENT (LAB VIEW ONLY) 44.64 mg/dL
[2025-06-13 14:15] LABS: Microalb ug/mg Crea 9.2 ug/mg Cr
== END 2025-06-13 09:52 | disposition home or self-care (01) ==
LOC: LBN 09:51
PROVIDERS: PCP Nurse Practitioner Family; Visit Provider Family Medicine
DX: E11.9 Type 2 diabetes mellitus without complications (principal); E11.21 Type 2 diabetes mellitus with diabetic nephropathy
CPT/HCPCS: 82043; 82570

== ENCOUNTER 2025-08-06 04:27 | Outpatient (CLI) | payer MEDICARE, SELFPAY ==
[2025-08-06 11:50] LABS: Anion Gap 9.9 mmol/L (3-11); BUN 15 mg/dL (7-18); CO2 28.1 mmol/L (21.0-32.0); Calcium 8.6 mg/dL (8.5-10.1); Chloride 101 mmol/L (98-107); Estimated GFR 97.17 (mL/min/1.73m2); Glucose 189 mg/dL (74-106); Potassium 4.6 mmol/L (3.5-5.1); Sodium 139 mmol/L (136-145)
[2025-08-10 15:44] LABS: Apolipoprotein B, Serum 78 mg/dL; Beta VLDL Cholesterol Not Detected mg/dL (<15); Beta VLDL Triglycerides Not Detected mg/dL (<15); Cholesterol, Total, CDC 149 mg/dL; Chylomicron Cholesterol Not Detected; Chylomicron Triglycerides Not Detected; HDL Cholesterol, CDC 31 mg/dL (>=40); LpX Not detected; Triglycerides, CDC 167 mg/dL; VLDL Triglycerides 107 mg/dL (<120)
== END 2025-08-06 04:28 | disposition home or self-care (01) ==
LOC: LBO 04:28
PROVIDERS: PCP Nurse Practitioner Family; Visit Provider Nurse Practitioner Family
DX: E11.21 Type 2 diabetes mellitus with diabetic nephropathy (principal)
CPT/HCPCS: 36415; 80048; 80061; 82172; 82664